=== PATIENT | male | born 1985 ===

== ENCOUNTER 2020-09-27 07:31 | Emergency (ER) | payer MEDICAID, SELFPAY ==
[2020-09-27 07:39] VITALS: BP 160/107; PULSE 85; RESP 17; TEMP 37.2; O2SAT 98; BMI 32.1
[2020-09-27] MEDS: Tetracaine HCl/PF 0.5% Oph Sol 4 ML DROPS 3 DROP EYE-LEFT (08:07)
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
== END 2020-09-27 08:44 | disposition home or self-care (01) ==
PROVIDERS: Emergency Provider Emergency Medicine; PCP Internal Medicine
DX: H20.12 Chronic iridocyclitis, left eye (principal); H57.12 Ocular pain, left eye; Z79.899 Other long term (current) drug therapy
CPT/HCPCS: 99283

== ENCOUNTER 2021-01-12 08:06 | Outpatient (REF) | payer MEDICAID, SELFPAY | END 2021-01-12 08:07 | disposition home or self-care (01) | LOC: HO.LAB 08:06 | PROVIDERS: PCP Internal Medicine; Visit Provider Internal Medicine | DX: Z20.822 Contact with and (suspected) exposure to COVID-19 (principal) | CPT/HCPCS: 36415; C9803; U0003; U0005 ==

== ENCOUNTER 2021-03-26 07:23 | Emergency (ER) | payer MEDICAID, SELFPAY ==
--- NOTE | ~2021-03-26 | XR_ITS ---
EXAMINATION: THORACIC AND LUMBAR SPINE CLINICAL INFORMATION: Back pain COMPARISON: Lumbar spine of May 01, 2020 TECHNIQUE: Three-view lumbar spine and AP and lateral thoracic spine. FINDINGS: No acute thoracic spine fractures identified. Pedicles intact. No abnormal paraspinal line bulge. There is mild degenerative spurring present at the T9-T10 level. There is minimal scoliosis convex left which may be positional in nature. There are 5 nonrib bearing lumbar vertebra. There is mild scoliosis convex left which may be positional in nature. There is some mild chronic deformity superior endplate of L2 without acute fracture identified. No spondylolisthesis or spondylolysis is appreciated. Sacroiliac joints unremarkable. XR/XR lumbar spine 2-3V IMPRESSION: No suspicious bony abnormalities of the thoracic or lumbar spine. No significant degenerative change appreciated.
--- NOTE | ~2021-03-26 | XR_ITS ---
EXAMINATION: THORACIC AND LUMBAR SPINE CLINICAL INFORMATION: Back pain COMPARISON: Lumbar spine of May 01, 2020 TECHNIQUE: Three-view lumbar spine and AP and lateral thoracic spine. FINDINGS: No acute thoracic spine fractures identified. Pedicles intact. No abnormal paraspinal line bulge. There is mild degenerative spurring present at the T9-T10 level. There is minimal scoliosis convex left which may be positional in nature. There are 5 nonrib bearing lumbar vertebra. There is mild scoliosis convex left which may be positional in nature. There is some mild chronic deformity superior endplate of L2 without acute fracture identified. No spondylolisthesis or spondylolysis is appreciated. Sacroiliac joints unremarkable. XR/XR thoracic spine 2V IMPRESSION: No suspicious bony abnormalities of the thoracic or lumbar spine. No significant degenerative change appreciated.
[2021-03-26 08:15] VITALS: BP 143/91; PULSE 89; RESP 18; TEMP 36.4; O2SAT 96; BMI 34.8
--- NOTE | 2021-03-26 09:18 | ED_ITS ---
HPI - Back Pain/Injury General Chief Complaint: Back Pain/Injury <DENIS Mcgregor Last Filed: 03/26/21 10:53> Stated Complaint: back pain <DENIS Mcgregor Last Filed: 03/26/21 10:53> Time Seen by Provider: 03/26/21 09:08 <Soo Best PA-C - Last Filed: 03/26/21 10:53> Source: patient <DENIS Mcgregor Last Filed: 03/26/21 10:53> Mode of arrival: ambulatory <DENIS Mcgregor Last Filed: 03/26/21 10:53> Limitations: physical limitation (Difficulty walking secondary to pain) <DENIS Mcgregor Last Filed: 03/26/21 10:53> History of Present Illness HPI Narrative: Patient is a 35-year-old male with a past medical history of a slipped lumbar disc which he has not addressed with a ophthalmologist retina specialist complaining of sudden onset back pain at work today. 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 He states today while he was working, he stepped out of his forklift and his legs gave out and he is now having increased back pain. Patient states he had x-rays a year 2 ago which showed he had a slipped disc but he has been too busy taking care family members who are out of work due to the pandemic to follow up with anyone about it. Denies fevers loss of control of bladder or bowels. <DENIS Mcgregor Last Filed: 03/26/21 10:53> MD elicited complaint: back pain <DENIS Mcgregor Last Filed: 03/26/21 10:53> Related Data Home Medications: Previous Rx's Medication Instructions Recorded naproxen 500 mg PO BID PRN #15 tab 03/26/21 prednisone 50 mg PO DAILY 4 Days #4 tab 03/26/21 acetaminophen [Tylenol Extra 1,000 mg PO QID PRN #14 tab 04/02/21 Strength] diazepam [Valium] 10 mg PO TID PRN #15 tab 04/02/21 lidocaine [Lidoderm] 1 patch TOPICAL DAILY #15 ea 04/02/21 naproxen 500 mg PO BID PRN #15 tab 04/02/21 prednisone 60 mg PO DAILY 5 Days #15 tab 04/02/21 <Soo Best PA-C - Last Filed: 03/26/21 10:53> Allergies/Adverse Reactions: Allergies Allergy/AdvReac Type Severity Reaction Status Date / Time ibuprofen [From MOTRIN] Allergy Intermediate HX Verified 03/26/21 09:46 ULCER-CANNOT USE aspirin [ASPIRIN] AdvReac Mild INVOLUNTARY Verified 09/27/20 07:42 SPASMS <Soo Best PA-C - Last Filed: 03/26/21 10:53> Review of Systems Review of Systems: Yes all other systems are reviewed and are negative <Soo Best PA-C - Last Filed: 03/26/21 10:53> [facility] Past Medical History Medical History: Medical History Epilepsy <Soo Best PA-C - Last Filed: 03/26/21 10:53> Social History Social History: Social History Smoking Status: Current every day smoker Substance Use Type: Marijuana <Soo Best PA-C - Last Filed: 03/26/21 10:53> Physical Exam Vital Signs: Vital Signs: Last Vital Signs Temp 97.5 F 03/26/21 08:15 Pulse 89 03/26/21 08:15 Resp 18 03/26/21 08:15 BP 143/91 H 03/26/21 08:15 Pulse Ox 96 03/26/21 08:15 Body Mass Index 34.8 <Soo Best PA-C - Last Filed: 03/26/21 10:53> Vital Signs: Last Vital Signs Temp 97.5 F 03/26/21 08:15 Pulse 89 03/26/21 08:15 Resp 18 03/26/21 08:15 BP 143/91 H 03/26/21 08:15 Pulse Ox 96 03/26/21 08:15 Body Mass Index 34.8 <Jovan Olea MD - Last Filed: 04/14/21 13:31> Const: General: cooperative, healthy appearing, comfortable and in distress (2/2 pain) mild <Soo Best PA-C - Last Filed: 03/26/21 10:53> HENMT: Head: Yes normal to inspection, Yes normocephalic and Yes atraumatic <Soo Best PA-C - Last Filed: 03/26/21 10:53> Eyes: General: appearance normal, both eyes and all related structures <Soo Best PA-C - Last Filed: 03/26/21 10:53> Neck: Neck: Yes normal visual inspection, Yes full ROM and Yes supple <Soo Best PA-C - Last Filed: 03/26/21 10:53> Resp: Effort & Inspection: normal respiratory effort and able to speak in complete sentences <Soo Best PA-C - Last Filed: 03/26/21 10:53> Back/Spine/Pelvis: Cervical Spine: cervical ROM normal and No Cervical spine tenderness <Soo Best PA-C - Last Filed: 03/26/21 10:53> Thoracic/Lumbar Spine: pain with thoraco-lumbar ROM, paraspinal muscle tenderness on the left in the lower thoracic, in the upper thoracic and in the mid lumbar, thoracic spinal tenderness and straight leg raise positive <Soo Best PA-C - Last Filed: 03/26/21 10:53> Course Course Course Narrative: Patient is a 35-year-old male with a past medical history of a slipped lumbar disc which he has not addressed with a ophthalmologist retina specialist complaining of sudden onset back pain at work today. VSS. Physical exam reveals lumbar and thoracic spinal tenderness as well as low back paraspinal muscle tenderness, patient in obvious pain at an more comfortable standing during exam. Straight leg test positive bilaterally. Will give 40 mg prednisone 60 mg IM Toradol in get an x-ray of the thoracic and lumbar spine and reassess. <Soo Best PA-C - Last Filed: 03/26/21 10:53> I have reviewed the chart <Jovan Olea MD - Last Filed: 04/14/21 13:31> Reevaluation(s) Reevaluation #1: Patient was sleeping when I walked into the room, says he still has some pressure in his back but clearly he is feeling much better. Reviewed x-ray results with patient, discussed going to a ophthalmologist retina specialist. He knows of Dr. frias at [facility]. Advised I can send a referral. Will give him prednisone and naproxen prescriptions. <Soo Best PA-C - Last Filed: 03/26/21 10:53> Time: 10:47 <Soo Best PA-C - Last Filed: 03/26/21 10:53> MDM - Back Pain/Injury Medical Records Attestation: I reviewed the patient's medical records. <Soo Best PA-C - Last Filed: 03/26/21 10:53> Imaging Data lumbar xray: Attestation: I personally reviewed and interpreted this imaging study as follows: <Soo Best PA-C - Last Filed: 03/26/21 10:53> My impression: No suspicious bony abnormalities of the thoracic or lumbar spine. No significant degenerative change appreciated. <Soo Best PA-C - Last Filed: 03/26/21 10:53> Radiologist's impression: [address] [address] ReportSigned Patient: Woo Sanches#: [id number]: 1985Acct:[id number]/Sex: 35 / MADM Date: 03/26/21Loc: EDAttending Dr: Ordering Physician: Soo Best PA-C Date of Service: 03/26/21 Procedure(s): XR lumbar spine 2-3V Accession Number(s): [id number] cc: Soo Best PA-C~ EXAMINATION: THORACIC AND LUMBAR SPINE CLINICAL INFORMATION: Back pain COMPARISON: Lumbar spine of May 01, 2020 TECHNIQUE: Three-view lumbar spine and AP and lateral thoracic spine. FINDINGS: No acute thoracic spine fractures identified. Pedicles intact. No abnormal paraspinal line bulge. There is mild degenerative spurring present at the T9-T10 level. There is minimal scoliosis convex left which may be positional in nature. There are 5 nonrib bearing lumbar vertebra. There is mild scoliosis convex left which may be positional in nature. There is some mild chronic deformity superior endplate of L2 without acute fracture identified. No spondylolisthesis or spondylolysis is appreciated. Sacroiliac joints unremarkable. XR/XR lumbar spine 2-3V IMPRESSION: No suspicious bony abnormalities of the thoracic or lumbar spine. No significant degenerative change appreciated. Dictated By:ZEKE TIERNEY V MDSigned By:<Electronically signed by ZEKE TIERNEY MD in [place]>03/26/21 1007 DD/ 0917TD/TT: Territory Sales Manager: BHAVNA <Soo Best PA-C - Last Filed: 03/26/21 10:53> Discharge Plan Discharge Clinical Impression: Back pain <DENIS Mcgregor Last Filed: 03/26/21 10:53> Patient Disposition: Home, Self-Care <DENIS Mcgregor Last Filed: 03/26/21 10:53> Instructions: Acute Low Back Pain (ED) <DENIS Mcgregor Last Filed: 03/26/21 10:53> Additional Instructions: As discussed, please take the prednisone for 4 more days, this will help reduce inflammation in her low back. I am also sending a prescription for naproxen to your pharmacy, you can take this for the next few days as well, please rest for the next for 5 days. Please also follow-up your PCP for a refe rral to a ophthalmologist retina specialist to address her issues. If you experience any loss of control of your bladder or bowels, please return to the emergency department STEPHENIE. <Soo Best PA-C - Last Filed: 03/26/21 10:53> Prescriptions: New prednisone 50 mg tablet 50 mg PO DAILY 4 Days Qty: 4 RF: 0 naproxen 500 mg tablet 500 mg PO BID PRN (Reason: pain) Qty: 15 RF: 0 No Action diazepam [Valium] 10 mg tablet 10 mg PO TID PRN (Reason: muscle spasm) Qty: 15 RF: 0 prednisone 20 mg tablet 60 mg PO DAILY 5 Days Qty: 15 RF: 0 lidocaine [Lidoderm] 5 % adhesive patch,medicated 1 patch topical DAILY Qty: 15 RF: 0 naproxen 500 mg tablet 500 mg PO BID PRN (Reason: pain) Qty: 15 RF: 0 acetaminophen [Tylenol Extra Strength] 500 mg tablet 1,000 mg PO QID PRN (Reason: fever or pain) Qty: 14 RF: 0 <Soo Best PA-C - Last Filed: 03/26/21 10:53> Referrals: Maggie Pleitez MD [Primary Care Provider] - 2 days (pt would like referral to back/ophthalmologist retina specialist) <Soo Best PA-C - Last Filed: 03/26/21 10:53> Stand Alone Forms: Work/School Release <Soo Best PA-C - Last Filed: 03/26/21 10:53> Interventions: ED Discharge Assessment Last Done: 03/26/21 11:04 <Soo Best PA-C - Last Filed: 03/26/21 10:53> Discharge Date/Time: 03/26/21 11:05 <Soo Best PA-C - Last Filed: 03/26/21 10:53>
[2021-03-26] MEDS: predniSONE 20 MG TABLET 40 MG PO (09:46)
[2021-03-26] MEDS: Ketorolac Tromethamine 60 MG/2 ML VIAL IM (09:46)
== END 2021-03-26 11:05 | disposition home or self-care (01) ==
PROVIDERS: Emergency Provider Emergency Medicine; PCP Internal Medicine
DX: M54.41 Lumbago with sciatica, right side (principal); F12.90 Cannabis use, unspecified, uncomplicated; Z79.899 Other long term (current) drug therapy
CPT/HCPCS: 72070; 72100; 96372; 99284; J1885

== ENCOUNTER 2021-04-02 10:17 | Emergency (ER) | payer MEDICAID, SELFPAY ==
[2021-04-02 10:23] VITALS: BP 128/70; PULSE 70; O2SAT 99
[2021-04-02 10:30] VITALS: BP 121/70; PULSE 81; RESP 16; TEMP 36.6; O2SAT 96; BMI 34.8
--- NOTE | 2021-04-02 10:49 | ED_ITS ---
HPI - Back Pain/Injury General Chief Complaint: Back Pain/Injury Stated Complaint: chronic lower back pain Time Seen by Provider: 04/02/21 10:21 Source: patient and family (Sister at bedside) Mode of arrival: ambulatory Limitations: no limitations History of Present Illness HPI Narrative: 35-year-old male with a past medical history of lower back pain although has never seen a specialist for this presenting to the ED for acute on chronic lower back pain mainly on the left side radiating to his left buttock/left leg over the past week worse today. He reports he was told he had a slipped disc approximately 1 year ago here when he was seen for similar complaints after obtaining an x-ray of his lumbar spine. Although reports he has never followed up. Reports that today after using the bathroom he was walking on the stairs and he felt a sharp pain to his left side of his lower back/buttocks and then his legs just gave out and he fell onto his buttocks. He denies head injury or loss of consciousness or further back injury. Reports that he has a follow-up appointment with his doctor by telehealth in an hour so she can refer him to the spinal specialist. Reports that he has been taking the naproxen and the prednisone and he has not received any symptomatic relief from that. MD elicited complaint: back pain Pertinent past history: prior back pain Onset (ago): week(s) (One week worse today) Timing: intermittent and progressively worsening Severity: moderate Similar Symptoms Previously: Yes Quality: sharp Location: lumbar spine Radiation: buttocks, left upper leg and left leg below the knee Exacerbating factors: walking Relieving factors: none Associated symptoms: denies other symptoms Treatments prior to arrival: other (Patient has tried multiple [id number] medications including the naproxen and the prednisone that he was prescribed no symptomatic relief although reports he is not interested in taking any narcotics) Work related injury: No Related Data Previous Rx's Medication Instructions Recorded naproxen 500 mg PO BID PRN #15 tab 03/26/21 prednisone 50 mg PO DAILY 4 Days #4 tab 03/26/21 acetaminophen [Tylenol Extra 1,000 mg PO QID PRN #14 tab 04/02/21 Strength] diazepam [Valium] 10 mg PO TID PRN #15 tab 04/02/21 lidocaine [Lidoderm] 1 patch TOPICAL DAILY #15 ea 04/02/21 naproxen 500 mg PO BID PRN #15 tab 04/02/21 prednisone 60 mg PO DAILY 5 Days #15 tab 04/02/21 Allergies Allergy/AdvReac Type Severity Reaction Status Date / Time ibuprofen [From MOTRIN] Allergy Intermediate HX Verified 03/26/21 09:46 ULCER-CANNOT USE aspirin [ASPIRIN] AdvReac Mild INVOLUNTARY Verified 09/27/20 07:42 SPASMS Review of Systems Review of Systems: Constitutional : No trauma, No Weight loss, No Fever, No Chills, ENT/Mouth : No Hearing loss, No Ear Pain, No Nasal Congestion, No Sinus Pain, No Hoarseness, No sore throat, No Rhinorrhea, No Swallowing Difficulty Cardiovascular : No Chest Pain, No SOB Respiratory : No Cough, No Dyspnea Gastrointestinal : No Nausea, No Vomiting, No Diarrhea, No abdominal Pain, No Hematochezia, No Melena Genitourinary : No Dysuria, No Urinary Frequency, No Hematuria, No Urinary or Bowel Incontinence/retention Musculoskeletal : + Back pain, No neck pain, No joint stiffness, No joint swelling Skin : No Skin Lesions, No rash or signs of infection Neuro : Positive radiation of the left lower back pain to the left buttock/left leg, No Weakness, No Numbness, No Paresthesias, No headache, no loss of bowel or bladder incontinence, no saddle anesthesia, Focal weakness, No radiation Denies history of IV drug usage. Yes all other systems are reviewed and are negative [facility] Past Medical History Attestation statement: The following information was validated with the patient. Medical History Epilepsy Social History Social History Smoking Status: Current every day smoker Substance Use Type: Marijuana Advance Directives: Yes Advance Directives Information Provided: Yes Advance Directives on File: No Physical Exam Vital Signs: Vital Signs: Last Vital Signs Temp 97.8 F 04/02/21 10:30 Pulse 81 04/02/21 10:30 Resp 16 04/02/21 10:30 BP 121/70 04/02/21 10:30 Pulse Ox 96 04/02/21 10:30 Body Mass Index 34.8 vital signs have been reviewed as normal and appeared to be correct. Blood pressure normal. Heart rate normal. Respiration rate normal. Temperature normal. Oxygen saturation normal. Appearance: Alert. Oriented X3. No acute distress. Head: Normal external exam. Normocephalic. Atraumatic. No [place] signs noted. No raccoon eyes noted Eyes: PERRLA. EOMI. Conjunctiva and sclera normal. Eyelids normal. ENT: EAC normal. TM's Normal. Pharynx normal. Uvula midline. Moist mucous membranes. No trismus noted. No drooling noted. No muffled voice noted. Neck: Normal inspection. Neck supple. FROM. No adenopathy. Thyroid Normal. No meningeal signs. No neck mass noted. CVS: Normal heart rate and rhythm. Heart sound normal. No murmurs noted. Pulses normal throughout. Respiratory: No respiratory distress. Painless inspiration. Breath sounds normal. No wheezes/rales/rhonchi noted. Chest nontender. No accessory muscle usage noted or decreased air movement noted. Abdomen: Soft and nontender. Bowel sounds normal in all 4 quadrants. No distention noted. No organomegaly noted. No visible injury noted. Back: No CVA tenderness. Full range of motion noted. No obvious deformities, or edema. Mild para-spinal muscular tenderness from lumbar region to coccyx. Full ROM in back and lower extremities. 5/5 strength hip extension/flexion, abduction, adduction. Mild Lumbar pain with hip flexion against resistance. Straight leg raise test negative on right; Straight leg raise test positive on left; Reflexes normal ankle and knee bilaterally; EHL motor strength normal bilaterally. No rashes/lesion/induration/fluctuance or signs infection noted. Skin: Skin warm and dry. Normal skin color. Normal skin turgor. No rashes/lesions/lacerations noted. Extremities: No lower extremity edema. Extremities exhibit normal range of motion. Extremities nontender. Neuro: Oriented X 3. No motor deficit. No sensory deficit. Reflexes normal. Patient has a normal steady gait. Course Course Course Narrative: Pt c likely muscular pain, but could be herniated disc. Neuro exam shows no deficits. Not c/w AAA/epidural abscess/dissection.No high risk Hx (Incont, fever, immunosupp, recent surgery/LP, coag, signif trauma, wt loss, puls mass, hx/o Ca, TB, or IVDU) to warrant MRI/CT today. Although due to patient returning multiple times I did offer imaging although patient reports that he has a follow-up within an hour and he will miss his appointment for the referral for the spinal specialist therefore he is refusing imaging at this time. Not c/w Pyelo/UTI/kidney stone/spinal fx. Not cauda equina syndrome. DC c meds and f/u. MDM - Back Pain/Injury Medical Records Attestation: I reviewed the patient's medical records. 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 Patient Disposition: Home, Self-Care Instructions: Sciatica (ED), Lumbar Radiculopathy (ED), Lower Back Exercises (ED) Prescriptions: New diazepam [Valium] 10 mg tablet 10 mg PO TID PRN (Reason: muscle spasm) Qty: 15 RF: 0 prednisone 20 mg tablet 60 mg PO DAILY 5 Days Qty: 15 RF: 0 lidocaine [Lidoderm] 5 % adhesive patch,medicated 1 patch topical DAILY Qty: 15 RF: 0 naproxen 500 mg tablet 500 mg PO BID PRN (Reason: pain) Qty: 15 RF: 0 acetaminophen [Tylenol Extra Strength] 500 mg tablet 1,000 mg PO QID PRN (Reason: fever or pain) Qty: 14 RF: 0 No Action prednisone 50 mg tablet 50 mg PO DAILY 4 Days Qty: 4 RF: 0 naproxen 500 mg tablet 500 mg PO BID PRN (Reason: pain) Qty: 15 RF: 0 Referrals: Maggie Pleitez MD [Primary Care Provider] - 1 day (Follow-up today so she can give you a referral to spinal specialist) Stand Alone Forms: Work/School Release Print Language: [place] Leonean
[2021-04-02] MEDS: diazePAM 5 MG TABLET 10 MG PO (11:29)
[2021-04-02] MEDS: NaPROXEN 500 MG TABLET PO (11:29)
[2021-04-02] MEDS: predniSONE 20 MG TABLET 60 MG PO (11:29)
== END 2021-04-02 11:38 | disposition home or self-care (01) ==
PROVIDERS: Emergency Provider Emergency Medicine; PCP Internal Medicine
DX: M51.17 Intervertebral disc disorders with radiculopathy, lumbosacral region (principal); M79.605 Pain in left leg; M79.604 Pain in right leg; Z79.899 Other long term (current) drug therapy
CPT/HCPCS: 99283

== ENCOUNTER 2021-04-07 07:57 | Outpatient (REF) | payer MEDICAID, SELFPAY ==
--- NOTE | ~2021-04-07 | MR_ITS ---
EXAMINATION: MR LUMBAR SPINE WITHOUT CONTRAST CLINICAL INFORMATION: Low back pain. Radiculopathy. COMPARISON: None TECHNIQUE: MRI of the lumbar spine was obtained using routine sequences without contrast. FINDINGS: The lumbar vertebral bodies maintain normal heights and alignment. There is moderate to severe disc height loss at L4-L5 with milder disc height loss also present at L1-L2, L2-L3, and L3-L4. The L5 disc appears preserved. The distal spinal cord appears normal. The conus medullaris terminates normally at the T12 level. The extraspinal soft tissues are within normal limits. SPINAL LEVELS: L1-L2: Mild disc bulging. No spinal canal or neural foraminal stenosis. L2-L3: Disc bulging with left subarticular extrusion with mild superior and inferior migration with resultant mass effect on the traversing left L3 nerve root. Mild spinal canal stenosis. No foraminal nerve root compression. L3-L4: Disc bulging with prominent epidural fat resulting in mild spinal canal stenosis and asymmetric narrowing of the left subarticular zone with abutment of the traversing left L4 nerve root. Left neural foramen is mildly narrowed with abutment of the exiting left L3 nerve root. Mild fatty degenerative endplate changes seen inferiorly at L3. L4-L5: Disc bulging with left subarticular extrusion with mild superior migration. Moderate facet arthropathy. Mild to moderate spinal canal stenosis and left subarticular stenosis with mass effect on the traversing left L5 nerve root. Mild bilateral neural foraminal stenosis without definite foraminal nerve root compression. Mild fatty degenerative endplate changes seen inferiorly at the opposing endplates. L5-S1: No posterior disc abnormality. Mild to moderate facet arthropathy. No spinal canal or neural foraminal stenosis. MR/MR lumbar spine wo con IMPRESSION: At L2-L3 there is left subarticular extrusion resulting in mass effect on the traversing left L3 nerve root. At L3-L4 there is mild spinal canal stenosis with asymmetric narrowing of the left subarticular zone. Mild left neural foraminal stenosis. At L4-L5 there is left subarticular extrusion with mass effect on the traversing left L5 nerve root. Mild to moderate spinal canal stenosis. Mild fatty endplate changes seen inferiorly at L3 and at L4-L5.
== END 2021-04-07 07:58 | disposition home or self-care (01) ==
LOC: HO.MRI 07:57
PROVIDERS: Visit Provider Internal Medicine
DX: M54.16 Radiculopathy, lumbar region (principal); M54.5 Low back pain
CPT/HCPCS: 72148

== ENCOUNTER 2021-07-17 10:25 | Emergency (ER) | payer MEDICAID, SELFPAY ==
--- NOTE | ~2021-07-17 | XR_ITS ---
EXAMINATION: LEFT ANKLE 2 VIEWS, LEFT TIB-FIB 2 VIEWS, LEFT FOOT 3 VIEWS CLINICAL INFORMATION: Left foot pain COMPARISON: None TECHNIQUE: As above nonweightbearing FINDINGS: Ankle mortise anatomic. No deformity. No mid or forefoot abnormality. Mild calcaneal plantar spurring. No tibiofibular abnormality. XR/XR ankle LT min 3V IMPRESSION: No fracture. Spurring as above.
--- NOTE | ~2021-07-17 | XR_ITS ---
EXAMINATION: LEFT ANKLE 2 VIEWS, LEFT TIB-FIB 2 VIEWS, LEFT FOOT 3 VIEWS CLINICAL INFORMATION: Left foot pain COMPARISON: None TECHNIQUE: As above nonweightbearing FINDINGS: Ankle mortise anatomic. No deformity. No mid or forefoot abnormality. Mild calcaneal plantar spurring. No tibiofibular abnormality. XR/XR tibia fibula LT 2V IMPRESSION: No fracture. Spurring as above.
--- NOTE | ~2021-07-17 | US_ITS ---
EXAMINATION: ULTRASOUND OF THE LEFT ACHILLES TENDON CLINICAL INFORMATION: Pain status post injury COMPARISON: None TECHNIQUE: Using a linear high frequency transducer, left Achilles tendon was assessed. FINDINGS: Targeted ultrasound demonstrates no disruption of the Achilles tendon tendon fibers. There is no evidence for any hematoma or any surrounding fluid. US/US extremity nonvascular IMPRESSION: No sonographic evidence for any discrete injury. Consider MRI as symptoms warrant.
--- NOTE | ~2021-07-17 | XR_ITS ---
EXAMINATION: LEFT ANKLE 2 VIEWS, LEFT TIB-FIB 2 VIEWS, LEFT FOOT 3 VIEWS CLINICAL INFORMATION: Left foot pain COMPARISON: None TECHNIQUE: As above nonweightbearing FINDINGS: Ankle mortise anatomic. No deformity. No mid or forefoot abnormality. Mild calcaneal plantar spurring. No tibiofibular abnormality. XR/XR foot LT 2V IMPRESSION: No fracture. Spurring as above.
[2021-07-17 10:39] VITALS: BP 126/96; BP 140/80; PULSE 83; PULSE 86; RESP 16; TEMP 36.8; O2SAT 97; O2SAT 98; BMI 34.2
[2021-07-17] MEDS: Acetaminophen 325 MG TABLET 975 MG PO (11:31)
--- NOTE | 2021-07-17 12:42 | ED.LOWEXIN ---
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 He denies head injury or loss of consciousness. He denies any other injury complaints or concerns. MD complaint: leg injury, ankle injury and foot injury Onset (ago): minute(s) (Prior to arrival) Injury: Left: ankle, foot and toes Type of Injury: other (Forklift tire rolled over his left lower leg/ankle/foot) Place: work Severity: moderate Relieving factors: nothing Exacerbating factors: weight bearing, movement and palpation Context: other (Forklift tire rolled over his foot/ankle/lower leg) Associated symptoms: swelling, numbness and tingling Other symptoms: none Treatments prior to arrival: cold therapy Related Data Previous Rx's Medication Instructions Recorded naproxen 500 mg tablet 500 mg PO BID PRN #15 tab 03/26/21 prednisone 50 mg tablet 50 mg PO DAILY 4 Days #4 tab 03/26/21 acetaminophen 500 mg tablet 1,000 mg PO QID PRN #14 tab 04/02/21 (Tylenol Extra Strength) diazepam 10 mg tablet (Valium) 10 mg PO TID PRN #15 tab 04/02/21 lidocaine 5 % topical patch 1 patch TOPICAL DAILY #15 ea 04/02/21 (Lidoderm) naproxen 500 mg tablet 500 mg PO BID PRN #15 tab 04/02/21 prednisone 20 mg tablet 60 mg PO DAILY 5 Days #15 tab 04/02/21 acetaminophen 500 mg tablet 1,000 mg PO QID PRN #14 tab 07/17/21 (Tylenol Extra Strength) Allergies Allergy/AdvReac Type Severity Reaction Status Date / Time ibuprofen [From MOTRIN] Allergy Intermediate HX Verified 03/26/21 09:46 ULCER-CANNOT USE aspirin [ASPIRIN] AdvReac Mild INVOLUNTARY Verified 09/27/20 07:42 SPASMS Review of Systems Review of Systems: Constitutional : No changes in activity, No lethargy, No recent prior head injury, No agitation, No increased fussiness ENT/Mouth : No Ear Pain, No Nasal discharge/drainage Eyes: No Eye Pain, No Swelling, No Redness, No Foreign Body, No Vision Changes Cardiovascular : No Chest Pain, No SOB Respiratory : No Cough Gastrointestinal : No Nausea, No Vomiting, No abdominal Pain Genitourinary : No Dysuria, No Urinary Frequency, No Urinary Incontinence, No Urgency, No Flank Pain Musculoskeletal : Positive joint pain, No neck stiffness, No back pain/injury Skin : No lacerations Neuro : Positive numbness/tingling to left foot, No unsteady gait, No Loss of Consciousness, No altered mental status, No Headache Yes all other systems are reviewed and are negative [facility] Past Medical History Attestation statement: The following information was validated with the patient. Medical History Bleeding ulcer Epilepsy Social History Social History Substance Use Type: Marijuana Advance Directives: Yes Advance Directives Information Provided: Yes Advance Directives on File: No Physical Exam Vital Signs: Vital Signs: Last Vital Signs Temp 98.2 F 07/17/21 10:39 Pulse 83 07/17/21 10:39 Resp 16 07/17/21 10:39 BP 126/96 H 07/17/21 10:39 Pulse Ox 97 07/17/21 10:39 Body Mass Index 34.2 vital signs have been reviewed as normal and appeared to be correct. Blood pressure hypertensive 126/96. Heart rate normal. Respiration rate normal. Temperature normal. Oxygen saturation normal. Appearance: Alert. Oriented X3. No acute distress. Head: Normal external exam. Normocephalic. Atraumatic. Eyes: PERRLA. EOMI. Conjunctiva and sclera normal. Eyelids normal. ENT: Pharynx normal. Uvula midline. Moist mucous membranes. Neck: Normal inspection. Neck supple. FROM. CVS: Normal heart rate and rhythm. Heart sound normal. Pulses normal throughout. No murmurs/rales/gallops. Respiratory: No respiratory distress. Painless inspiration. Breath sounds normal. No wheezes/rales/rhonchi noted. Chest nontender. No accessory muscle usage noted or decreased air movement noted. Back: Full range of motion noted. Skin: Skin warm and dry. Normal skin color. Normal skin turgor. No rashes/lesions/lacerations noted. Extremities: Patient with tenderness palpation to left lower leg/ankle with mild soft tissue swelling to the medial malleolus and tenderness up patient to the left foot and toes. Patient has full range of motion of all toes/foot and ankle joint. No obvious deformities. There is no pain out of proportion not consistent with compartment syndrome. Negative Becerra's test. Achilles tendon appears to be intact. No lower extremity edema. Otherwise all other Extremities exhibit normal range of motion and nontender. Neuro: Oriented X 3. Patient reports that he has pins and needles/tingling/numbness sensation to the left foot otherwise no additional sensory deficit. No Motor deficit noted. Reflexes normal. Normal steady gait. No focal neuro deficits noted. Vascular: + radial pulses/+ 2 distal pedal pulses/+2 dorsalis pedis b/l. Normal cap refill. No cyanosis noted to upper extremity nails and lower extremity toes nails. 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 Plan: X-ray of left ankle/foot and tibia/fibula along with an ultrasound of the Achilles tendon provide 975 mg of Tylenol then re-evaluate Reevaluation(s) Reevaluation #1: - left ankle/foot/fibula fibula x-ray negative for any acute processes. Therefore I obtained an ultrasound of the left Achilles tendon it and they cannot see any sonographic evidence of any discrete injury date report consider MRI as needed. Although on my exam patient does not appear to have an obvious Achilles tendon rupture/tear. And patient was able to get up and walk to the bathroom and he reports that his pain and numbness/tingling sensation is almost completely resolved. Therefore will DC home with symptomatic treatment along with instructions return if any new or worsening symptoms to follow up with primary care provider and his jobs [facility] [employer]. Patient understands agrees with this plan. Time: 13:11 MDM - Extremity Injury (Lower) Medical Records Attestation: I reviewed the patient's medical records. Imaging Data Ankle/tibia/fibula x-rays: Attestation: I personally reviewed and interpreted this imaging study as follows: Radiologist's impression: FINDINGS: Ankle mortise anatomic. No deformity. No mid or forefoot abnormality. Mild calcaneal plantar spurring. No tibiofibular abnormality.? XR/XR foot LT 2V IMPRESSION: No fracture. Spurring as above.? Achilles left ultrasound: Attestation: I personally reviewed and interpreted this imaging study as follows: Radiologist's impression: FINDINGS: Targeted ultrasound demonstrates no disruption of the Achilles tendon tendon fibers. There is no evidence for any hematoma or any surrounding fluid.? US/US extremity nonvascular IMPRESSION: No sonographic evidence for any discrete injury. Consider MRI as symptoms warrant. Discharge Plan Discharge Clinical Impression: Ankle sprain and strain, Foot sprain, Encounter for assessment of work-related causation of injury, Leg sprain Patient Disposition: Home, Self-Care Instructions: Ankle Sprain (ED), Foot Sprain (ED), Return to Work Instructions (ED) Prescriptions: New acetaminophen [Tylenol Extra Strength] 500 mg tablet 1,000 mg PO QID PRN (Reason: fever or pain) Qty: 14 RF: 0 No Action diazepam [Valium] 10 mg tablet 10 mg PO TID PRN (Reason: muscle spasm) Qty: 15 RF: 0 prednisone 20 mg tablet 60 mg PO DAILY 5 Days Qty: 15 RF: 0 lidocaine [Lidoderm] 5 % adhesive patch,medicated 1 patch topical DAILY Qty: 15 RF: 0 naproxen 500 mg tablet 500 mg PO BID PRN (Reason: pain) Qty: 15 RF: 0 acetaminophen [Tylenol Extra Strength] 500 mg tablet 1,000 mg PO QID PRN (Reason: fever or pain) Qty: 14 RF: 0 prednisone 50 mg tablet 50 mg PO DAILY 4 Days Qty: 4 RF: 0 naproxen 500 mg tablet 500 mg PO BID PRN (Reason: pain) Qty: 15 RF: 0 Referrals: [facility] [Provider Group] - 2 days Stand Alone Forms: Work/School Release Print Language: Thai
== END 2021-07-17 13:30 | disposition home or self-care (01) ==
PROVIDERS: Emergency Provider Internal Medicine; PCP Internal Medicine
DX: S93.402A Sprain of unspecified ligament of left ankle, initial encounter (principal); S96.912A Strain of unspecified muscle and tendon at ankle and foot level, left foot, initial encounter; S93.602A Unspecified sprain of left foot, initial encounter; V88.8XXA Person injured in other specified noncollision transport accidents involving motor vehicle, nontraffic, initial encounter; Y93.H3 Activity, building and construction; Y92.59 Other trade areas as the place of occurrence of the external cause; Y99.0 Civilian activity done for income or pay
CPT/HCPCS: 73590; 73610; 73620; 76882; 99283; 99284

== ENCOUNTER 2021-09-06 08:43 | Emergency (ER) | payer MEDICAID, SELFPAY ==
[2021-09-06 09:06] VITALS: BP 127/92; PULSE 84; RESP 16; TEMP 36.8; O2SAT 97; BMI 32.1
--- NOTE | 2021-09-06 10:03 | ED_ITS ---
HPI - URI/Sore Throat General Chief Complaint: Upper Respiratory Symptoms Stated Complaint: covid symptoms Source: patient Mode of arrival: ambulatory Limitations: no limitations History of Present Illness HPI Narrative: Patient presents to the ED to be tested for COVID-19. Patient states most of his family tested positive for COVID over the weekend so he wanted to make sure he did not get COVID. Patient presently denies any symptoms. Related Data Previous Rx's Medication Instructions Recorded naproxen 500 mg tablet 500 mg PO BID PRN #15 tab 03/26/21 prednisone 50 mg tablet 50 mg PO DAILY 4 Days #4 tab 03/26/21 acetaminophen 500 mg tablet 1,000 mg PO QID PRN #14 tab 04/02/21 (Tylenol Extra Strength) diazepam 10 mg tablet (Valium) 10 mg PO TID PRN #15 tab 04/02/21 lidocaine 5 % topical patch 1 patch TOPICAL DAILY #15 ea 04/02/21 (Lidoderm) naproxen 500 mg tablet 500 mg PO BID PRN #15 tab 04/02/21 prednisone 20 mg tablet 60 mg PO DAILY 5 Days #15 tab 04/02/21 acetaminophen 500 mg tablet 1,000 mg PO QID PRN #14 tab 07/17/21 (Tylenol Extra Strength) Allergies Allergy/AdvReac Type Severity Reaction Status Date / Time ibuprofen [From MOTRIN] Allergy Intermediate HX Verified 03/26/21 09:46 ULCER-CANNOT USE aspirin [ASPIRIN] AdvReac Mild INVOLUNTARY Verified 09/27/20 07:42 SPASMS Review of Systems Review of Systems: Yes all other systems are reviewed and are negative Constitutional: Constitutional: Reports as per HPI and Reports no additional constitutional complaints Eyes: Eyes: Reports as per HPI and Reports no additional eye complaints ENT: Reports system reviewed and no additional complaints, except as documented and Reports as per HPI Cardiovascular: Cardiovascular: Reports as per HPI and Reports no additional cardiovascular complaints Respiratory: Respiratory: Reports as per HPI and Reports no additional respiratory complaints Gastrointestinal: Gastrointestinal: Reports as per HPI and Reports no additional gastrointestinal complaints Genitourinary: Genitourinary: Reports no additional male genitourinary compl aints and Reports as per HPI Musculoskeletal: Musculoskeletal: Reports no additional musculoskeletal complaints and Reports as per HPI Neurologic: Reports system reviewed and no additional complaints, except as documented and Reports as per HPI Psychiatric: Psychiatric: Reports no additional psychiatric complaints and Reports as per HPI [facility] Past Medical History Medical History Bleeding ulcer Epilepsy Social History Social History Substance Use Type: Marijuana Advance Directives: No Physical Exam Vital Signs: Vital Signs: Last Vital Signs Temp 98.2 F 09/06/21 09:06 Pulse 84 09/06/21 09:06 Resp 16 09/06/21 09:06 BP 127/92 H 09/06/21 09:06 Pulse Ox 97 09/06/21 09:06 Body Mass Index 32.1 Const: General: cooperative, healthy appearing, comfortable, no acute distress, well developed, alert, awake and Physically active Orientation/consciousness: patient oriented x3 HENMT: Head: Yes normal to inspection, Yes No palpable skull fracture present, Yes normocephalic and Yes atraumatic Ears: hearing grossly normal bilaterally, external ears normal, TM's normal bilaterally, EAC's normal, mastoids normal and no periauricular adenopathy General nose exam: Normal external nose present, Normal nares present and No nasal polyps present Face and sinus: Yes normal facial exam and Yes sinuses nontender Throat: Yes posterior oropharynx normal, Yes tonsils normal and Yes uvula midline Eyes: General: appearance normal, both eyes and all related structures Neck: Neck: Yes normal visual inspection, Yes full ROM, Yes no lymphadenopathy, Yes no meningeal signs, Yes trachea midline, Yes supple and No tender Chest: Chest palpation & inspection: normal inspection of the chest and normal palpation of entire chest wall Resp: Effort & Inspection: normal respiratory effort and able to speak in complete sentences Auscultation: clear to auscultation bilaterally Cardio: Jugular venous distension: no JVD Heart sounds: S1 normal heart sound present and S2 normal heart sound present GI: Inspection: Yes normal to inspection and No abdominal wall ecchymosis P alpation (GI): Soft to palpation, not firm, nontender, no guarding and not rigid : General: No CVA tenderness and Yes no CVA tenderness Back/Spine/Pelvis: Back: no CVA tenderness, No CVA tenderness and No back tenderness Skin: General skin exam: no rashes or lesions noted and elasticity normal Neuro: General: patient oriented x3, gait normal, no meningeal signs and CN's II-XI intact bilaterally Cranial nerves: Yes CN's II-XII intact bilaterally Extrem: General: Yes normal to inspection and Yes full ROM Psych: Appearance: grossly normal, well kempt and not disheveled Course Course Course Narrative: Patient is symptomatic will send COVID habitus. Reevaluation(s) Reevaluation #1: COVID swab is negative. Patient informed this may be false negative and informed if he started having symptoms to get retested. Time: 11:01 MDM - URI/Sore Throat MDM Narrative Medical decision making narrative: Normal exam Lab Data Labs: Lab Results 09/06/21 Range/Units 09:53 COVID-19 ([facility]) Negative (Negative) COVID-19 Clin Com See Note Discharge Plan Discharge Clinical Impression: Normal exam Patient Disposition: Home, Self-Care Instructions: Normal Exam (ED) Additional Instructions: Your COVID test came back negative. She started having symptoms recommend retesting in 72 hours. Return to the ED for any chest pain, shortness of breath, coughing up blood, intractable fever, chills, weakness, dizziness, or any other concerning symptoms. Please follow-up with primary care provider Prescriptions: No Action diazepam [Valium] 10 mg tablet 10 mg PO TID PRN (Reason: muscle spasm) Qty: 15 RF: 0 prednisone 20 mg tablet 60 mg PO DAILY 5 Days Qty: 15 RF: 0 lidocaine [Lidoderm] 5 % adhesive patch,medicated 1 patch topical DAILY Qty: 15 RF: 0 naproxen 500 mg tablet 500 mg PO BID PRN (Reason: pain) Qty: 15 RF: 0 acetaminophen [Tylenol Extra Strength] 500 mg tablet 1,000 mg PO QID PRN (Reason: fever or pain) Qty: 14 RF: 0 acetaminophen [Tylenol Extra Strength] 500 mg tablet 1,000 mg PO QID PRN (Reason: fever or pain) Qty: 14 RF: 0 prednisone 50 mg tablet 50 mg PO DAILY 4 Days Qty: 4 RF: 0 naproxen 500 mg tablet 500 mg PO BID PRN (Reason: pain) Qty: 15 RF: 0 Interventions: ED Discharge Assessment Last Done: 09/06/21 11:56 Discharge Date/Time: 09/06/21 11:57 Print Language: Upper Sorbian
[2021-09-06 10:14] LABS: COVID-19 Test Negative (Negative); IDNOW Serial# 9DD0AD1C
== END 2021-09-06 11:57 | disposition home or self-care (01) ==
PROVIDERS: Emergency Provider Emergency Medicine; PCP Internal Medicine
DX: Z20.822 Contact with and (suspected) exposure to COVID-19 (principal)
CPT/HCPCS: 36415; 87635; 99283

== ENCOUNTER 2021-09-18 03:17 | Emergency (ER) | payer MEDICAID, SELFPAY ==
[2021-09-18 03:22] VITALS: BP 139/86; PULSE 87; RESP 18; TEMP 37; O2SAT 94; BMI 32.1
--- NOTE | 2021-09-18 04:09 | ED.BACK ---
HPI - Back Pain/Injury General Chief Complaint: Back Pain/Injury Stated Complaint: Back pain Time Seen by Provider: 09/18/21 04:04 Source: patient Mode of arrival: ambulatory Limitations: no limitations History of Present Illness HPI Narrative: History of chronic back pain at physical therapy seen a specialist went to work 1 week ago after few months of rest and physical therapy yesterday he picked up his niece was 30 lb noticed pain the left side of lower back no leg weakness no nausea no vomiting no bowel or bladder incontinence no focal weakness Related Data Previous Rx's Medication Instructions Recorded naproxen 500 mg tablet 500 mg PO BID PRN #15 tab 03/26/21 prednisone 50 mg tablet 50 mg PO DAILY 4 Days #4 tab 03/26/21 acetaminophen 500 mg tablet 1,000 mg PO QID PRN #14 tab 04/02/21 (Tylenol Extra Strength) diazepam 10 mg tablet (Valium) 10 mg PO TID PRN #15 tab 04/02/21 lidocaine 5 % topical patch 1 patch TOPICAL DAILY #15 ea 04/02/21 (Lidoderm) naproxen 500 mg tablet 500 mg PO BID PRN #15 tab 04/02/21 prednisone 20 mg tablet 60 mg PO DAILY 5 Days #15 tab 04/02/21 acetaminophen 500 mg tablet 1,000 mg PO QID PRN #14 tab 07/17/21 (Tylenol Extra Strength) cyclobenzaprine 10 mg tablet 10 mg PO Q8H #20 tab 09/18/21 tramadol 50 mg tablet 50 mg PO Q6H PRN #20 tab 09/18/21 Allergies Allergy/AdvReac Type Severity Reaction Status Date / Time ibuprofen [From MOTRIN] Allergy Intermediate HX Verified 03/26/21 09:46 ULCER-CANNOT USE aspirin [ASPIRIN] AdvReac Mild INVOLUNTARY Verified 09/27/20 07:42 SPASMS Review of Systems Review of Systems: Yes all other systems are reviewed and are negative PMFSH Past Medical History Medical History Bleeding ulcer Epilepsy Social History Social History Substance Use Type: Marijuana Advance Directives: No Physical Exam Vital Signs: Vital Signs: Last Vital Signs Temp 98.6 F 09/18/21 03:22 Pulse 87 09/18/21 03:22 Resp 18 09/18/21 03:22 BP 139/86 09/18/21 03:22 Pulse Ox 94 09/18/21 03:22 Body Mass Index 32.1 Appearance: Alert. Oriented X3. No acute distress. ENT: Pharynx normal. Oral Mucosa moist Neck: Normal inspection. Neck supple. CVS: Normal heart rate and rhythm. Pulses normal. Respiratory: No respiratory distress. Equal air entry bilateral, no wheezing/rales/rhonchi Abdomen: Soft and nontender. Bowel sounds are present, no mass palpable, no CVA tenderness Back: Diffuse tenderness left paraspinal area no focal spinal tenderness Extremities: No lower extremity edema. No calf tenderness Neuro: Oriented X 3. No motor deficit. No sensory deficit. Straight leg test negative no sacral sensation sparing Discharge Plan Discharge Clinical Impression: Strain of lumbar region Qualifiers: Encounter type: initial encounter Qualified Code(s): S39.012A - Strain of muscle, fascia and tendon of lower back, initial encounter Patient Disposition: Home, Self-Care Instructions: Acute Low Back Pain (ED) Additional Instructions: Take pain medication and muscle relaxant as advised Follow-up with your orthopedics/physical therapy Prescriptions: New cyclobenzaprine 10 mg tablet 10 mg PO Q8H Qty: 20 RF: 0 tramadol 50 mg tablet 50 mg PO Q6H PRN (Reason: pain) Qty: 20 RF: 0 No Action diazepam [Valium] 10 mg tablet 10 mg PO TID PRN (Reason: muscle spasm) Qty: 15 RF: 0 prednisone 20 mg tablet 60 mg PO DAILY 5 Days Qty: 15 RF: 0 lidocaine [Lidoderm] 5 % adhesive patch,medicated 1 patch topical DAILY Qty: 15 RF: 0 naproxen 500 mg tablet 500 mg PO BID PRN (Reason: pain) Qty: 15 RF: 0 acetaminophen [Tylenol Extra Strength] 500 mg tablet 1,000 mg PO QID PRN (Reason: fever or pain) Qty: 14 RF: 0 acetaminophen [Tylenol Extra Strength] 500 mg tablet 1,000 mg PO QID PRN (Reason: fever or pain) Qty: 14 RF: 0 prednisone 50 mg tablet 50 mg PO DAILY 4 Days Qty: 4 RF: 0 naproxen 500 mg tablet 500 mg PO BID PRN (Reason: pain) Qty: 15 RF: 0
[2021-09-18] MEDS: Cyclobenzaprine HCl 10 MG TABLET PO (04:15)
[2021-09-18] MEDS: traMADoL HCL 50 MG TABLET PO (04:15)
== END 2021-09-18 04:31 | disposition home or self-care (01) ==
PROVIDERS: Emergency Provider Internal Medicine
DX: M54.50 Low back pain, unspecified (principal); Z79.899 Other long term (current) drug therapy
CPT/HCPCS: 99283; 99284

== ENCOUNTER 2021-11-19 00:06 | Emergency (ER) | payer MEDICAID, SELFPAY ==
[2021-11-19 00:11] VITALS: BP 118/82; PULSE 94; RESP 20; TEMP 36.9; O2SAT 97; BMI 36.2
[2021-11-19 01:02] LABS: Influenza A PCR NEGATIVE (Negative); Influenza B PCR NEGATIVE (Negative); Resp Syncy Virus RNA Qual PCR NEGATIVE (Negative)
[2021-11-19 01:04] LABS: SARS COV2 PCR INHOUSE POSITIVE (Negative)
--- NOTE | 2021-11-19 01:36 | ED_ITS ---
HPI - General Adult General Chief complaint: General Medical Stated complaint: Bodyaches/Fever/Headache Time Seen by Provider: 11/19/21 01:34 Source: patient Mode of arrival: ambulatory History of Present Illness HPI narrative: 35-year-old male with presentation with 2 days body aches, fatigue, loss of taste, headache, chills, and states that he was just recently notified by a co-worker that he was COVID-19 positive. Related Data Previous Rx's Medication Instructions Recorded naproxen 500 mg tablet 500 mg PO BID PRN #15 tab 03/26/21 prednisone 50 mg tablet 50 mg PO DAILY 4 Days #4 tab 03/26/21 acetaminophen 500 mg tablet 1,000 mg PO QID PRN #14 tab 04/02/21 (Tylenol Extra Strength) diazepam 10 mg tablet (Valium) 10 mg PO TID PRN #15 tab 04/02/21 lidocaine 5 % topical patch 1 patch TOPICAL DAILY #15 ea 04/02/21 (Lidoderm) naproxen 500 mg tablet 500 mg PO BID PRN #15 tab 04/02/21 prednisone 20 mg tablet 60 mg PO DAILY 5 Days #15 tab 04/02/21 acetaminophen 500 mg tablet 1,000 mg PO QID PRN #14 tab 07/17/21 (Tylenol Extra Strength) cyclobenzaprine 10 mg tablet 10 mg PO Q8H #20 tab 09/18/21 tramadol 50 mg tablet 50 mg PO Q6H PRN #20 tab 09/18/21 Allergies Allergy/AdvReac Type Severity Reaction Status Date / Time ibuprofen [From MOTRIN] Allergy Intermediate HX Verified 11/19/21 00:11 ULCER-CANNOT USE aspirin [ASPIRIN] AdvReac Mild INVOLUNTARY Verified 11/19/21 00:11 SPASMS Review of Systems Review of Systems: Pertinent positives and negatives as stated in the HPI 10 point review of systems is otherwise negative. [facility] Past Medical History Source: nursing notes reviewed Medical History Bleeding ulcer Epilepsy Social History Social History Substance Use Type: Marijuana Advance Directives: No Physical Exam Vital Signs: Vital Signs: Last Vital Signs Temp 98.5 F 11/19/21 00:11 Pulse 94 11/19/21 00:11 Resp 20 11/19/21 00:11 BP 118/82 11/19/21 00:11 Pulse Ox 97 11/19/21 00:11 BMI result Body Mass Index 36.2 VITAL SIGNS: Reviewed. GENERAL: Well developed, well nourished, in no acute distress. HEAD: Normocephalic/atraumatic EYES: PERRLA, EOMI LUNGS: Normal breath sounds, no tachypnea SpO2<97> CARDIOVASCULAR: Regular rate and rhythm without noted murmurs ABDOMEN: Soft, non-tender, non-distended with bowel sounds SKIN: Inspection of the skin reveals no rashes NEUROLOGIC: Alert and oriented x 4. Course Course Course Narrative: 35-year-old male with history and clinical presentation consistent with viral syndrome and on review of investigations is noted be COV ID-19 positive. Patient was informed of all results, is not noted to be tachypneic, and is oxygenating well on room air. Medical Decision Making Lab Data Labs: Lab Results 11/19/21 Range/Units 00:17 Influenza Type A (PCR) NEGATIVE (Negative) Influenza Type B (PCR) NEGATIVE (Negative) RSV RNA Qual (PCR) NEGATIVE (Negative) SARS-CoV-2 RNA (RT-PCR) POSITIVE A (Negative) Discharge Plan Discharge Clinical Impression: Viral syndrome, Lab test positive for detection of COVID-19 virus Patient Disposition: Home, Self-Care Instructions: Viral Syndrome (ED), COVID-19 (Coronavirus Disease 2019) (ED) Additional Instructions: Keep drinking plenty of water. Recommend [id number] Tylenol/ibuprofen as needed for body aches, temperatures greater than 100.4. Follow-up with your primary care provider via telemedicine appointment in the next 1-2 days for re-evaluation. Return to the ER for acute worsening of symptoms. Prescriptions: No Action diazepam [Valium] 10 mg tablet 10 mg PO TID PRN (Reason: muscle spasm) Qty: 15 RF: 0 prednisone 20 mg tablet 60 mg PO DAILY 5 Days Qty: 15 RF: 0 lidocaine [Lidoderm] 5 % adhesive patch,medicated 1 patch topical DAILY Qty: 15 RF: 0 naproxen 500 mg tablet 500 mg PO BID PRN (Reason: pain) Qty: 15 RF: 0 acetaminophen [Tylenol Extra Strength] 500 mg tablet 1,000 mg PO QID PRN (Reason: fever or pain) Qty: 14 RF: 0 acetaminophen [Tylenol Extra Strength] 500 mg tablet 1,000 mg PO QID PRN (Reason: fever or pain) Qty: 14 RF: 0 prednisone 50 mg tablet 50 mg PO DAILY 4 Days Qty: 4 RF: 0 naproxen 500 mg tablet 500 mg PO BID PRN (Reason: pain) Qty: 15 RF: 0 cyclobenzaprine 10 mg tablet 10 mg PO Q8H Qty: 20 RF: 0 tramadol 50 mg tablet 50 mg PO Q6H PRN (Reason: pain) Qty: 20 RF: 0 Referrals: Maggie Pleitez MD [Primary Care Provider] - 2 days (COVID-19 positive, 11/19)
== END 2021-11-19 01:47 | disposition home or self-care (01) ==
PROVIDERS: Emergency Provider Student in an Organized Health Care Education/Training Program; PCP Internal Medicine
DX: U07.1 COVID-19 (principal); B34.9 Viral infection, unspecified
CPT/HCPCS: 0241U; 99283

== ENCOUNTER 2022-06-18 02:38 | Emergency (ER) | payer OTHER, SELFPAY ==
--- NOTE | ~2022-06-18 | XR_ITS ---
EXAMINATION: XR FOOT, LEFT CLINICAL INFORMATION: Nail through foot COMPARISON: 07/17/2021 TECHNIQUE: AP, lateral, and oblique views of the left foot. FINDINGS: Osseous alignment is anatomic. No acute fracture is seen. Plantar calcaneal spur is noted. No radiopaque foreign body identified. No significant focal soft tissue abnormality is seen. XR/XR foot LT min 3V IMPRESSION: No acute findings identified.
[2022-06-18 03:00] VITALS: BP 134/86; PULSE 86; RESP 20; TEMP 36.7; O2SAT 97; BMI 34.8
[2022-06-18 03:04] VITALS: BP 131/88; PULSE 81; TEMP 35.8; O2SAT 97
[2022-06-18] MEDS: Diphth,Pertus(ACell),Tet Adult 0.5 ML SYRINGE IM (03:13)
[2022-06-18] MEDS: levoFLOXacin 500 MG TABLET PO (03:15)
--- NOTE | 2022-06-18 03:18 | ED.SKABFB ---
HPI - Skin/Abscess/Foreign Bdy General Chief complaint: Skin/Abscess/Foreign Body Stated complaint: Stepped on a nail, at work Time Seen by Provider: 06/18/22 03:04 Source: patient Mode of arrival: ambulatory Limitations: no limitations History of Present Illness complaint: other (nail went into foot) Onset (ago): minute(s) (just prior to arrival ) Tetanus up to date: unsure Location: L foot Severity: mild Quality: dull Pain Consistency: constant Relieving factors: none Exacerbating factors: palpation Context: other (nail through work boot) Associated symptoms: other (pain) Treatments prior to arrival: none Related Data Previous Rx's Medication Instructions Recorded naproxen 500 mg tablet 500 mg PO BID PRN pain #15 tabs 03/26/21 prednisone 50 mg tablet 50 mg PO DAILY 4 days #4 tabs 03/26/21 acetaminophen 500 mg tablet 1,000 mg PO QID PRN fever or pain 04/02/21 (Tylenol Extra Strength) #14 tabs diazepam 10 mg tablet (Valium) 10 mg PO TID PRN muscle spasm #15 04/02/21 tabs lidocaine 5 % topical patch 1 patch topical DAILY pain #15 ea 04/02/21 (Lidoderm) naproxen 500 mg tablet 500 mg PO BID PRN pain #15 tabs 04/02/21 prednisone 20 mg tablet 60 mg PO DAILY Inflammation 5 days 04/02/21 #15 tabs acetaminophen 500 mg tablet 1,000 mg PO QID PRN fever or pain 07/17/21 (Tylenol Extra Strength) #14 tabs cyclobenzaprine 10 mg tablet 10 mg PO Q8H #20 tabs 09/18/21 tramadol 50 mg tablet 50 mg PO Q6H PRN pain #20 tabs 09/18/21 levofloxacin 500 mg tablet 500 mg PO DAILY #6 tabs 06/18/22 Allergies Allergy/AdvReac Type Severity Reaction Status Date / Time ibuprofen [From MOTRIN] Allergy Intermediate HX Verified 06/18/22 03:00 ULCER-CANNOT USE aspirin [ASPIRIN] AdvReac Mild INVOLUNTARY Verified 06/18/22 03:00 SPASMS Review of Systems Review of Systems: Constitutional : No Fever, No Chills, Cardiovascular : No Chest Pain, No SOB Respiratory : No Dyspnea Gastrointestinal : No abdominal pain Musculoskeletal : No Joint Swelling Skin : No rash, positive skin laceration Neuro : No Weakness, No Numbness PMFSH Past Medical History Attestation statement: The following information was validated with the patient. Medical History Bleeding ulcer Epilepsy Social History Social History Alcohol intake: never Patient Tobacco Use Status: Current everyday Tobacco user Use of substances other than those prescribed or required for medical reasons: Yes Substance Use Type: Marijuana Physical Exam Vital Signs: Vital Signs: Last Vital Signs Temp 96.4 F L 06/18/22 03:04 Pulse 81 06/18/22 03:04 Resp 20 06/18/22 03:00 BP 131/88 06/18/22 03:04 Pulse Ox 97 06/18/22 03:04 O2 Del Method 06/18/22 03:04 BMI result Body Mass Index 34.8 Appearance: Alert. Oriented X3. No acute distress. Eyes: Pupils equal, round and reactive to light. ENT: Pharynx normal. Neck: Normal inspection. Neck supple. CVS: Normal heart rate and rhythm. Pulses normal. Respiratory: No respiratory distress. Breath sounds normal. Abdomen: Soft and non-tender. Skin: Skin warm and dry. Normal skin color. Normal skin turgor. Extremities: No lower extremity edema. L foot mid lateral plantar aspect small puncture wound non bleeding Neuro: Oriented X 3. No motor deficit. No sensory deficit. MDM - Skin/Abscess/Foreign Bdy MDM Narrative Medical decision making narrative: 36 yo male non diabetic here with c/o L foot puncture wound from nail through work boot will update tetanus and start on levofloxacin given precautions for tendinopathy Discharge Plan Discharge Clinical Impression: Puncture wound Patient Disposition: Home, Self-Care Instructions: Levofloxacin (By mouth), Diphtheria/Acellular Pertussis/Tetanus Vaccine (DTaP) (By injection), Puncture Wound (ED) Additional Instructions: return to ED for any worsening symptoms or concerns antibiotic may require injury to tendons limit exertion for 2 weeks Prescriptions: New levofloxacin 500 mg tablet 500 mg PO DAILY Qty: 6 0RF Rx Instructions: start on 06/19 No Action diazepam [Valium] 10 mg tablet 10 mg PO TID PRN (Reason: muscle spasm) Qty: 15 0RF prednisone 20 mg tablet 60 mg PO DAILY 5 Days Qty: 15 0RF lidocaine [Lidoderm] 5 % adhesive patch,medicated 1 patch topical DAILY Qty: 15 0RF Rx Instructions: leave on most painful area for up to 12 hrs. May be substituted naproxen 500 mg tablet 500 mg PO BID PRN (Reason: pain) Qty: 15 0RF acetaminophen [Tylenol Extra Strength] 500 mg tablet 1,000 mg PO QID PRN (Reason: fever or pain) Qty: 14 0RF acetaminophen [Tylenol Extra Strength] 500 mg tablet 1,000 mg PO QID PRN (Reason: fever or pain) Qty: 14 0RF prednisone 50 mg tablet 50 mg PO DAILY 4 Days Qty: 4 0RF naproxen 500 mg tablet 500 mg PO BID PRN (Reason: pain) Qty: 15 0RF cyclobenzaprine 10 mg tablet 10 mg PO Q8H Qty: 20 0RF tramadol 50 mg tablet 50 mg PO Q6H PRN (Reason: pain) Qty: 20 0RF Stand Alone Forms: Work/School Release
== END 2022-06-18 04:21 | disposition home or self-care (01) ==
PROVIDERS: Emergency Provider Emergency Medicine; PCP Internal Medicine
DX: S91.332A Puncture wound without foreign body, left foot, initial encounter (principal); W45.0XXA Nail entering through skin, initial encounter; Y93.89 Activity, other specified; Y92.59 Other trade areas as the place of occurrence of the external cause; Y99.0 Civilian activity done for income or pay; F17.200 Nicotine dependence, unspecified, uncomplicated; F12.90 Cannabis use, unspecified, uncomplicated
CPT/HCPCS: 73630; 90471; 90715; 99284

== ENCOUNTER 2022-10-04 22:10 | Emergency (ER) | payer MEDICAID, SELFPAY ==
[2022-10-04 22:27] VITALS: BP 124/90; PULSE 85; RESP 16; TEMP 36.6; O2SAT 98; BMI 36.2
[2022-10-04 23:02] LABS: VBG Base Excess 0.9 mmol/L; VBG HCO3 27 mmol/L (22-26); VBG pCO2 49 mmHg; VBG pH 7.35 (7.32-7.43); VBG pO2 43 mmHg
[2022-10-04 23:03] LABS: Venous Blood Gas Refer to POC result
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
--- OUTSIDE RECORDS SUMMARY | 2022-10-05 01:00 | XMS_ITS | Continuity of Care Document ---
:1985 Author Organization [facility] Address Unavailable , Care Team Providers Name Role Phone Maik CAPONE, Maggie Becerra Primary Care Physician Encounter [facility] [place] Date(s): 08/10/21 - 09/09/21 [facility] Allergies, Adverse Reactions, Alerts Substance Reaction Severity Status NKA Active Immunizations Given and Recorded Vaccine Date Status Refusal Reason pneumococcal 23-valent vaccine 04/25/18 Given tetanus/diphtheria/pertussis, acel(Tdap) 03/25/18 Given Medications acetaminophen 325 mg oral tablet 650 mg, By Mouth, Every 4 hours, PRN, Refills 0, Maintenance, Headache, 04/26/18 11:34:34 EDT Start Date: 04/26/18 Status: OrderedCeleXA 40 mg oral tablet 40 mg, 1, tablet, By Mouth, Daily at bedtime, # 30 tablet, Refills 0, Maintenance, 04/24/18 18:40:25EDT Start Date: 04/24/18 Status: OrderedcloNIDine 0.1 mg oral tablet 0.1 mg, 1, tablet, By Mouth, 2 times a day, # 60 tablet, Refills 0, Maintenance, 04/24/18 18:41:03 EDT Start Date: 04/24/18 Status: OrderedDilantin 0 Refills, Maintenance, 05/10/17 10:43:59 Start Date: 05/10/17 Status: OrderedDilantin 100 mg oral capsule, extended release 3 capsule = 300 mg, By Mouth, 2 times a day, 0 Refills, Maintenance, 04/24/18 18:41:37 EDT Start Date: 04/24/18 Status: Orderedgabapentin 300 mg oral capsule 300 mg, 1, capsule, By Mouth, 3 times a day, # 90 capsule, Refills 0, Maintenance, 04/24/18 18:39:21EDT Start Date: 04/24/18 Status: OrderedlevETIRAcetam 1000 mg oral tablet 1 tablet = 1,000 mg, By Mouth, 2 times a day, # 60 tablet, 6 Refills, Maintenance, 08/10/21 14:08:00EDT, Tablet, [facility], 180, cm, 09/24/19 9:45:00 EDT, Height Start Date: 08/10/21 Stop Date: 03/08/22 Status: OrderedPepcid AC Maximum Strength 20 mg oral tablet 20 mg, 1, tablet, By Mouth, Daily at bedtime, # 30 tablet, Refills 0, Maintenance, 04/24/18 18:39:59EDT Start Date: 04/24/18 Status: OrderedrisperiDONE 1 mg oral tablet 1 mg, By Mouth, Daily at bedtime, Refills 0, Maintenance, 04/26/18 11:34:44 EDT Start Date: 04/26/18 Status: Ordered Social History Social History Type Response Smoking Status Former smoker entered on: 05/04/18 Sex
--- OUTSIDE RECORDS SUMMARY | 2022-10-05 01:00 | XMS_ITS | Continuity of Care Document ---
:1985 Author Organization [facility] Address Unavailable , Care Team Providers Name Role Phone Maik CAPONE, Maggie Becerra Primary Care Physician Encounter [facility] [place] Date(s): 05/24/22 - 06/23/22 [facility] Attending Physician: Oscar Be Admitting Physician: sOcar Be Referring Physician: Oscar Be Allergies, Adverse Reactions, Alerts No Known Allergies Immunizations Given and Recorded Vaccine Date Status [...] 04/24/18 18:39:21EDT Start Date: 04/24/18 Status: OrderedlevETIRAcetam 500 mg oral tablet, extended release 2 tablet = 1,000 mg, By Mouth, 2 times a day, # 120 tablet, 6 Refills, Maintenance, 05/24/22 9:25:00EDT, ER Tablet, [facility], Partial fill upon patient request if the prescription is for a schedule II opioid drug., 180, cm, 04/29... Start Date: 05/24/22 Stop Date: 12/20/22 Status: OrderedPepcid AC Maximum Strength 20 mg oral tablet 20 mg, 1, tablet, By Mouth, Daily at bedtime, # 30 tablet, Refills 0, Maintenance, 04/24/18 18:39:59EDT Start Date: 04/24/18 Status: OrderedrisperiDONE 1 mg oral tablet 1 mg, By Mouth, Daily at bedtime, Refills 0, Maintenance, 04/26/18 11:34:44 EDT Start Date: 04/26/18 Status: Ordered Problem List Condition Effective Dates Status Health Status Informant Obese class II(Confirmed) Active Social History Social History Type Response Smoking Status Former smoker entered on: 05/04/18 Sex
--- OUTSIDE RECORDS SUMMARY | 2022-10-05 01:00 | XMS_ITS | Continuity of Care Document ---
:1985 Author Organization [facility] Address Unavailable , Care Team Providers Name Role Phone Maik CAPONE, Maggie Becerra Primary Care Physician [phone] Encounter [facility] [place] Date(s): 08/10/21 - 09/09/21 [facility] Allergies, Adverse Reactions, Alerts Substance Reaction [...] tablet, 6 Refills, Maintenance, 08/10/21 14:08:00EDT, Tablet, [facility], 180, cm, 09/24/19 9:45:00 EDT, [...]
== END 2022-10-05 01:38 | disposition home or self-care (01) ==
PROVIDERS: Emergency Provider Emergency Medicine; PCP Family Medicine
DX: T59.891A Toxic effect of other specified gases, fumes and vapors, accidental (unintentional), initial encounter (principal); Y92.59 Other trade areas as the place of occurrence of the external cause; F17.200 Nicotine dependence, unspecified, uncomplicated; F12.90 Cannabis use, unspecified, uncomplicated
CPT/HCPCS: 36415; 82803; 99282; 99284

== ENCOUNTER 2022-12-28 09:52 | Outpatient (REF) | payer MEDICAID, SELFPAY ==
--- NOTE | ~2022-12-28 | XR_ITS ---
EXAMINATION: XR CHEST CLINICAL INFORMATION: Acute cough. COMPARISON: Chest radiograph 04/29/2020. TECHNIQUE: 2 views of the chest were obtained. FINDINGS: Normal appearance of the cardiomediastinal silhouette. Increase perihilar bronchial thickening with questionable more focal airspace opacities in the medial right lower lobe. No pleural effusion or pneumothorax. No acute osseous abnormalities. The visualized upper abdomen is within normal limits. XR/XR chest 2V IMPRESSION: Peribronchial thickening suggesting an infectious/inflammatory process of the small airways with a questionable developing infiltrate in the medial right lower lobe.
== END 2022-12-28 09:53 | disposition home or self-care (01) ==
LOC: HO.XRAY 09:52
PROVIDERS: PCP Internal Medicine; Visit Provider Registered Nurse
DX: R05.1 Acute cough (principal)
CPT/HCPCS: 71046

== ENCOUNTER 2023-04-12 09:00 | Outpatient (RCR) | payer MEDICAID, SELFPAY | END 2023-04-27 09:49 | disposition home or self-care (01) | LOC: HO.PT 09:00 | PROVIDERS: PCP Internal Medicine; Visit Provider Family Medicine | DX: M54.16 Radiculopathy, lumbar region (principal) | CPT/HCPCS: 97110; 97112; 97140; 97161 ==

== ENCOUNTER 2023-04-13 12:04 | Emergency (ER) | payer MEDICAID, SELFPAY ==
--- NOTE | ~2023-04-13 | XR_ITS ---
EXAMINATION: XR CHEST CLINICAL INFORMATION: Chest pain COMPARISON: Previous chest x-ray most recent November 2022 TECHNIQUE: Frontal view of the chest was obtained. FINDINGS: No significant abnormality is noted involving the heart, lungs, mediastinum, bony thorax or soft tissues. XR/XR chest 1V IMPRESSION: Unremarkable examination.
--- NOTE | 2023-04-13 12:07 | ECG_ITS ---
Test Reason : CHEST PAIN Blood Pressure : / mmHG Vent. Rate : 068 BPM Atrial Rate : 068 BPM P-R Int : 142 ms QRS Dur : 082 ms QT Int : 370 ms P-R-T Axes : 073 050 020 degrees QTc Int : 393 ms Normal sinus rhythm Normal ECG When compared to the previous EKG of No significant changes seen Referred By: Angélica Hall Electronically Signed By:Raudel Tran
--- NOTE | 2023-04-13 12:20 | ED.CHESTPAIN ---
HPI - Chest Pain General Chief Complaint: Chest Pain <FRANKIE Albarado - Last Filed: 04/13/23 12:25> Stated Complaint: Chest pain/Nausea <FRANKIE Albarado - Last Filed: 04/13/23 12:25> Time Seen by Provider: 04/13/23 12:38 <FRANKIE Albarado - Last Filed: 04/13/23 12:25> Source: patient, RN notes reviewed and old records reviewed <FRANKIE Lacy - Last Filed: 04/13/23 16:36> Mode of arrival: ambulatory <FRANKIE Lacy Last Filed: 04/13/23 16:36> History of Present Illness HPI narrative: 37-year-old male with a past medical history of epilepsy presenting to the ED complaining of sharp chest pain starting last night around midnight while at work after stressful situation. 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 Reports since incident has had constant chest pressure unremitting. Reports mild SOB initially after incident, and chest pain worsened with deep inspiration. Denies fever, chills, cough, nausea/vomiting, numbness/tingling, pedal edema, recent travel, history of clots. Does report history of cigarette and THC smoking <FRANKIE Lacy Last Filed: 04/13/23 16:36> MD complaint: chest heaviness <FRANKIE Lacy - Last Filed: 04/13/23 16:36> Related Data Home Medications: Previous Rx's Medication Instructions Recorded naproxen 500 mg tablet 500 mg PO BID PRN pain #15 tabs 03/26/21 prednisone 50 mg tablet 50 mg PO DAILY 4 days #4 tabs 03/26/21 acetaminophen 500 mg tablet 1,000 mg PO QID PRN fever or pain 04/02/21 (Tylenol Extra Strength) #14 tabs diazepam 10 mg tablet (Valium) 10 mg PO TID PRN muscle spasm #15 04/02/21 tabs lidocaine 5 % topical patch 1 patch topical DAILY pain #15 ea 04/02/21 (Lidoderm) naproxen 500 mg tablet 500 mg PO BID PRN pain #15 tabs 04/02/21 prednisone 20 mg tablet 60 mg PO DAILY Inflammation 5 days 04/02/21 #15 tabs acetaminophen 500 mg tablet 1,000 mg PO QID PRN fever or pain 07/17/21 (Tylenol Extra Strength) #14 tabs cyclobenzaprine 10 mg tablet 10 mg PO Q8H #20 tabs 09/18/21 tramadol 50 mg tablet 50 mg PO Q6H PRN pain #20 tabs 09/18/21 levofloxacin 500 mg tablet 500 mg PO DAILY #6 tabs 06/18/22 <FRANKIE Albarado Last Filed: 04/13/23 12:25> Allergies/Adverse Reactions: Allergies Allergy/AdvReac Type Severity Reaction Status Date / Time ibuprofen [From MOTRIN] Allergy Intermediate HX Verified 04/13/23 12:24 ULCER-CANNOT USE aspirin [ASPIRIN] AdvReac Mild INVOLUNTARY Verified 04/13/23 12:24 SPASMS <FRANKIE Albarado Last Filed: 04/13/23 12:25> Review of Systems Review of Systems: Constitutional: No Fever, No Chills, No Fatigue, No Malaise ENT/Mouth: No Ear Pain, No sore throat, No Rhinorrhea, No Swallowing Difficulty Eyes: No Eye Pain, No Swelling, No Redness, No Vision Changes Cardiovascular: + Chest Pain, + SOB (resolved), No Edema, No Palpitations Respiratory: No Cough, No Sputum, No Dyspnea Gastrointestinal: No Nausea, No Vomiting, No Diarrhea, No Constipation, No Abdominal pain Genitourinary: No Dysuria, No Urinary Frequency, No Hematuria, No Flank Pain Musculoskeletal: No joint pain, No Myalgias, No Joint Swelling Skin: No Skin Lesions, No rash Neuro: No Weakness, No Numbness, No Paresthesias, No Dizziness, No Headache <FRANKIE Lacy Last Filed: 04/13/23 16:36> Yes all other systems are reviewed and are negative <FRANKIE Lacy Last Filed: 04/13/23 16:36> Constitutional: Constitutional: Reports as per HPI <FRANKIE Lacy Last Filed: 04/13/23 16:36> [facility] Past Medical History Attestation statement: The following information was validated with the patient. <FRANKIE Lacy Last Filed: 04/13/23 16:36> Source: old records reviewed <FRANKIE Lacy Last Filed: 04/13/23 16:36> Medical History: Medical History Bleeding ulcer Epilepsy <FRANKIE Albarado - Last Filed: 04/13/23 12:25> Social History Social History: Social History Alcohol intake: never Patient Tobacco Use Status: Current everyday Tobacco user Smoked in Last 30 Days: Yes Use of substances other than those prescribed or required for medical reasons: Yes Substance Use Type: Marijuana Substance Use Frequency: Daily Advance Directives: No <FRANKIE Albarado - Last Filed: 04/13/23 12:25> Physical Exam Vital Signs: Vital Signs: Last Vital Signs Temp 98.1 F 04/13/23 16:01 Pulse 70 04/13/23 16:01 Resp 16 04/13/23 16:01 BP 114/88 04/13/23 16:01 Pulse Ox 97 04/13/23 16:01 O2 Del Method Room Air 04/13/23 16:01 BMI result Body Mass Index 34.2 <FRANKIE Albarado - Last Filed: 04/13/23 12:25> Vital Signs: Last Vital Signs Temp 98.1 F 04/13/23 16:01 Pulse 70 04/13/23 16:01 Resp 16 04/13/23 16:01 BP 114/88 04/13/23 16:01 Pulse Ox 97 04/13/23 16:01 O2 Del Method Room Air 04/13/23 16:01 BMI result Body Mass Index 34.2 <FRANKIE Lacy - Last Filed: 04/13/23 16:36> Const: General: cooperative, healthy appearing and no acute distress <FRANKIE Lacy - Last Filed: 04/13/23 16:36> Orientation/consciousness: patient oriented x3 <FRANKIE Lacy - Last Filed: 04/13/23 16:36> Limitations: no limitations <FRANKIE Lacy Last Filed: 04/13/23 16:36> HEENT: Head: Yes normal to inspection and Yes atraumatic <FRANKIE Lacy - Last Filed: 04/13/23 16:36> Ears: hearing grossly normal bilaterally <Leda Holguin PA - Last Filed: 04/13/23 16:36> General nose exam: Normal external nose present <Leda Holguin PA - Last Filed: 04/13/23 16:36> Face and sinus: Yes normal facial exam <Leda Holguin PA - Last Filed: 04/13/23 16:36> Eyes: General: appearance normal, both eyes and all related structures <Leda Holguin PA - Last Filed: 04/13/23 16:36> EOM: EOMs intact bilaterally <Leda Holguin PA - Last Filed: 04/13/23 16:36> Neck: Neck: Yes normal visual inspection and Yes no meningeal signs <Leda Holguin PA - Last Filed: 04/13/23 16:36> Chest: Chest palpation & inspection: normal inspection of the chest, no crepitus and tenderness (Right substernal chest wall reproducing subjective complaint) <Leda Holguin PA - Last Filed: 04/13/23 16:36> Resp: Effort & Inspection: normal respiratory effort, not labored and no respiratory distress <Leda Holguin PA - Last Filed: 04/13/23 16:36> Auscultation: clear to auscultation bilaterally, no crackles, no rales, no rhonchi and no wheezes <Leda Holguin PA - Last Filed: 04/13/23 16:36> Cardio: Rate: regular rate <Leda Holguin PA - Last Filed: 04/13/23 16:36> Heart sounds: S1 normal heart sound present and S2 normal heart sound present <Leda Holguin PA - Last Filed: 04/13/23 16:36> GI: Inspection: Yes normal to inspection <Leda Holguin PA - Last Filed: 04/13/23 16:36> Palpation (GI): Soft to palpation, nontender, no guarding and not rigid <Leda Holguin PA - Last Filed: 04/13/23 16:36> : General: Yes no CVA tenderness <Leda Holguin PA - Last Filed: 04/13/23 16:36> Back/Spine/Pelvis: Back: no CVA tenderness <FRANKIE Lacy Last Filed: 04/13/23 16:36> Skin: Rashes: no rashes <FRANKIE Lacy - Last Filed: 04/13/23 16:36> Wounds: no wounds <FRANKIE Lacy - Last Filed: 04/13/23 16:36> Neuro: General: patient oriented x3, tone normal and no meningeal signs <FRANKIE Lacy Last Filed: 04/13/23 16:36> Gait exam (Neuro): Normal gait present <FRANKIE Lacy Last Filed: 04/13/23 16:36> Extrem: General: Yes normal to inspection, Yes no pedal edema and Yes no calf tenderness <FRANKIE Lacy Last Filed: 04/13/23 16:36> Course Course Course Narrative: RME 37 yo male with a PMH of epilepsy (on Keppra, last had a seizure three nights ago).He has had sharp pain in his chest since midnight. He states he has snot slept. He states he cannot take deep breaths. A co-worker walked out on him, and his pain happened after this event. His pain is constant in the middle of his chest. His pain is sharp and not-radiating. VSS in triage, appears well. Plan: EKG done. Plan for CBC, CMP, troponin, chest x-ray. <FRANKIE Albarado - Last Filed: 04/13/23 12:25> RME 37 yo male with a PMH of epilepsy (on Keppra, last had a seizure three nights ago).He has had sharp pain in his chest since midnight. He states he has snot slept. He states he cannot take deep breaths. A co-worker walked out on him, and his pain happened after this event. His pain is constant in the middle of his chest. His pain is sharp and not-radiating. VSS in triage, appears well. Plan: EKG done. Plan for CBC, CMP, troponin, chest x-ray. -no leukocytosis. D-dimer WNL. Initial troponin WNL. Labs otherwise unremarkable -CXR unremarkable -1630--repeat troponin equivocal, mi unlikely Results discussed with patient including worrisome signs and symptoms and strict return precautions, and when to return to the emergency department. They verbalized understanding and feel safe for discharge at this time. <FRANKIE Lacy - Last Filed: 04/13/23 16:36> Medical Decision Making Medical Decision Making [facility] Narrative: 37-year-old male with a past medical history of epilepsy presenting to the ED complaining of sharp chest pain starting last night around midnight while at work after stressful situation. Reports mild SOB initially after incident, and chest pain worsened with deep inspiration. On exam vital signs stable, NAD, nontoxic appearing, chest pain reproducible on palpation, no evidence of flail chest or infection, lungs CTA, no pedal edema/calf tenderness. Concern for ACS vs PE vs anxiety induced chest pain. Lower suspicion for pneumonia/CHF, DVT Plan: EKG, labs, CXR, re-evaluate Please refer to course for remaining clinical decision making, interpretation of labs/imaging results, and discussions with consultants and/or family members. <FRANKIE Lacy - Last Filed: 04/13/23 16:36> Differential Diagnosis Differential Diagnoses: The differential diagnosis associated with the presentation includes <FRANKIE Lacy - Last Filed: 04/13/23 16:36> As above <FRANKIE Lacy - Last Filed: 04/13/23 16:36> Admission/Observation Consideration of admission/observation: Escalation of care including admission/observation considered <FRANKIE Lacy Last Filed: 04/13/23 16:36> Lab Data [facility] Lab Attestation statement: I reviewed the patient's lab results. <FRANKIE Lacy - Last Filed: 04/13/23 16:36> Result Diagrams: 04/13/23 12:44 04/13/23 12:44 <FRANKIE Albarado - Last Filed: 04/13/23 12:25> Labs: Lab Results 04/13/23 04/13/23 04/13/23 Range/Units 12:44 12:44 12:44 WBC 7.9 (4.8-10.8) X10*3/uL RBC 5.98 H (4.60-5.80) X10*6/uL Hgb 16.8 (14.0-18.0) g/dl Hct 51.3 (42.0-52.0) % MCV 85.8 (80.0-98.0) fL MCH 28.1 (27.0-33.0) pg MCHC 32.7 (31.0-36.0) g/dl RDW 12.9 (11.0-16.0) % Plt Count 227 (160-400) X10*3/uL MPV 10.5 (9.4-12.4) fL Immature Gran % (Auto) 0.3 (0.0-0.4) % Neut % (Auto) 56.9 (45-73) % Lymph % (Auto) 31.5 (20-40) % [place] % (Auto) 8.1 (2-11) % Eos % (Auto) 2.4 (0-4) % Baso % (Auto) 0.8 (0-2) % Lymph # (Auto) 2.5 (1.2-4.9) X10*3/uL [place] # (Auto) 0.6 (0.1-1.2) X10*3/uL Eos # (Auto) 0.2 (0.0-0.4) X10*3/uL Baso # (Auto) 0.1 (0.0-0.2) X10*3/uL Abs Immat Gran (auto) 0.02 (0.00-0.03) X10*3/uL Absolute Neuts (auto) 4.5 (2.0-8.3) x10*3/uL Absolute Nucleated RBC 0.000 (0.0-0.012) X10*3/uL Nucleated RBC % (auto) 0.0 (0.0-0.2) /100WBC D-Dimer High Sensitivty NG/ML Sodium 142 (135-145) mmol/L Potassium 4.8 (3.3-5.1) mmol/L Chloride 106 (96-108) mmol/L Carbon Dioxide 30 H (22-29) mmol/L Anion Gap 11 L (12-20) BUN 16 (9-16) mg/dL Creatinine 1.06 (0.5-1.4) mg/dL Estim Creat Clear Calc 122.1 Estimated GFR > 60 Random Glucose 92 (60-115) mg/dL Calcium 9.9 (8.4-10.2) mg/dL Magnesium 2.2 (1.6-2.6) mg/dL Total Bilirubin 0.8 (0.0-1.0) mg/dL Direct Bilirubin 0.2 (0.0-0.5) mg/dL AST 27 (5-37) U/L ALT 48 H (0-40) U/L Alkaline Phosphatase 94 (39-117) U/L Troponin I High Sens < 2.7 (<3.5-35.0) ng/L Total Protein 7.8 (6.5-8.0) g/dL Albumin 4.5 (3.5-5.0) g/dL 04/13/23 04/13/23 Range/Units 13:22 14:57 WBC (4.8-10.8) X10*3/uL RBC (4.60-5.80) X10*6/uL Hgb (14.0-18.0) g/dl Hct (42.0-52.0) % MCV (80.0-98.0) fL MCH (27.0-33.0) pg MCHC (31.0-36.0) g/dl RDW (11.0-16.0) % Plt Count (160-400) X10*3/uL MPV (9.4-12.4) fL Immature Gran % (Auto) (0.0-0.4) % Neut % (Auto) (45-73) % Lymph % (Auto) (20-40) % [place] % (Auto) (2-11) % Eos % (Auto) (0-4) % Baso % (Auto) (0-2) % Lymph # (Auto) (1.2-4.9) X10*3/uL [place] # (Auto) (0.1-1.2) X10*3/uL Eos # (Auto) (0.0-0.4) X10*3/uL Baso # (Auto) (0.0-0.2) X10*3/uL Abs Immat Gran (auto) (0.00-0.03) X10*3/uL Absolute Neuts (auto) (2.0-8.3) x10*3/uL Absolute Nucleated RBC (0.0-0.012) X10*3/uL Nucleated RBC % (auto) (0.0-0.2) /100WBC D-Dimer High Sensitivty < 150 NG/ML Sodium (135-145) mmol/L Potassium (3.3-5.1) mmol/L Chloride (96-108) mmol/L Carbon Dioxide (22-29) mmol/L Anion Gap (12-20) BUN (9-16) mg/dL Creatinine (0.5-1.4) mg/dL Estim Creat Clear Calc Estimated GFR Random Glucose (60-115) mg/dL Calcium (8.4-10.2) mg/dL Magnesium (1.6-2.6) mg/dL Total Bilirubin (0.0-1.0) mg/dL Direct Bilirubin (0.0-0.5) mg/dL AST (5-37) U/L ALT (0-40) U/L Alkaline Phosphatase (39-117) U/L Troponin I High Sens < 2.7 (<3.5-35.0) ng/L Total Protein (6.5-8.0) g/dL Albumin (3.5-5.0) g/dL <FRANKIE Albarado - Last Filed: 04/13/23 12:25> Lab Results 04/13/23 04/13/23 04/13/23 Range/Units 12:44 12:44 12:44 WBC 7.9 (4.8-10.8) X10*3/uL RBC 5.98 H (4.60-5.80) X10*6/uL Hgb 16.8 (14.0-18.0) g/dl Hct 51.3 (42.0-52.0) % MCV 85.8 (80.0-98.0) fL MCH 28.1 (27.0-33.0) pg MCHC 32.7 (31.0-36.0) g/dl RDW 12.9 (11.0-16.0) % Plt Count 227 (160-400) X10*3/uL MPV 10.5 (9.4-12.4) fL Immature Gran % (Auto) 0.3 (0.0-0.4) % Neut % (Auto) 56.9 (45-73) % Lymph % (Auto) 31.5 (20-40) % [place] % (Auto) 8.1 (2-11) % Eos % (Auto) 2.4 (0-4) % Baso % (Auto) 0.8 (0-2) % Lymph # (Auto) 2.5 (1.2-4.9) X10*3/uL [place] # (Auto) 0.6 (0.1-1.2) X10*3/uL Eos # (Auto) 0.2 (0.0-0.4) X10*3/uL Baso # (Auto) 0.1 (0.0-0.2) X10*3/uL Abs Immat Gran (auto) 0.02 (0.00-0.03) X10*3/uL Absolute Neuts (auto) 4.5 (2.0-8.3) x10*3/uL Absolute Nucleated RBC 0.000 (0.0-0.012) X10*3/uL Nucleated RBC % (auto) 0.0 (0.0-0.2) /100WBC D-Dimer High Sensitivty NG/ML Sodium 142 (135-145) mmol/L Potassium 4.8 (3.3-5.1) mmol/L Chloride 106 (96-108) mmol/L Carbon Dioxide 30 H (22-29) mmol/L Anion Gap 11 L (12-20) BUN 16 (9-16) mg/dL Creatinine 1.06 (0.5-1.4) mg/dL Estim Creat Clear Calc 122.1 Estimated GFR > 60 Random Glucose 92 (60-115) mg/dL Calcium 9.9 (8.4-10.2) mg/dL Magnesium 2.2 (1.6-2.6) mg/dL Total Bilirubin 0.8 (0.0-1.0) mg/dL Direct Bilirubin 0.2 (0.0-0.5) mg/dL AST 27 (5-37) U/L ALT 48 H (0-40) U/L Alkaline Phosphatase 94 (39-117) U/L Troponin I High Sens < 2.7 (<3.5-35.0) ng/L Total Protein 7.8 (6.5-8.0) g/dL Albumin 4.5 (3.5-5.0) g/dL 04/13/23 04/13/23 Range/Units 13:22 14:57 WBC (4.8-10.8) X10*3/uL RBC (4.60-5.80) X10*6/uL Hgb (14.0-18.0) g/dl Hct (42.0-52.0) % MCV (80.0-98.0) fL MCH (27.0-33.0) pg MCHC (31.0-36.0) g/dl RDW (11.0-16.0) % Plt Count (160-400) X10*3/uL MPV (9.4-12.4) fL Immature Gran % (Auto) (0.0-0.4) % Neut % (Auto) (45-73) % Lymph % (Auto) (20-40) % [place] % (Auto) (2-11) % Eos % (Auto) (0-4) % Baso % (Auto) (0-2) % Lymph # (Auto) (1.2-4.9) X10*3/uL [place] # (Auto) (0.1-1.2) X10*3/uL Eos # (Auto) (0.0-0.4) X10*3/uL Baso # (Auto) (0.0-0.2) X10*3/uL Abs Immat Gran (auto) (0.00-0.03) X10*3/uL Absolute Neuts (auto) (2.0-8.3) x10*3/uL Absolute Nucleated RBC (0.0-0.012) X10*3/uL Nucleated RBC % (auto) (0.0-0.2) /100WBC D-Dimer High Sensitivty < 150 NG/ML Sodium (135-145) mmol/L Potassium (3.3-5.1) mmol/L Chloride (96-108) mmol/L Carbon Dioxide (22-29) mmol/L Anion Gap (12-20) BUN (9-16) mg/dL Creatinine (0.5-1.4) mg/dL Estim Creat Clear Calc Estimated GFR Random Glucose (60-115) mg/dL Calcium (8.4-10.2) mg/dL Magnesium (1.6-2.6) mg/dL Total Bilirubin (0.0-1.0) mg/dL Direct Bilirubin (0.0-0.5) mg/dL AST (5-37) U/L ALT (0-40) U/L Alkaline Phosphatase (39-117) U/L Troponin I High Sens < 2.7 (<3.5-35.0) ng/L Total Protein (6.5-8.0) g/dL Albumin (3.5-5.0) g/dL <FRANKIE Lacy - Last Filed: 04/13/23 16:36> Independent Interpretation I performed an independent interpretation of an: EKG (EKG normal sinus rhythm with PVC at a rate of 83. QRS 92. QTC 484. No STEMI.) <FRANKIE Lacy - Last Filed: 04/13/23 16:36> Radiology Impression Discussion of test interpretation with radiology: I have reviewed the radiologist's reading. <FRANKIE Lacy - Last Filed: 04/13/23 16:36> External Record Review External record reviewed: Inpatient record, Office record, Outpatient record, Prior outpatient labs, Prior outpatient radiology, Primary care record and Outside ED record <FRANKIE Lacy - Last Filed: 04/13/23 16:36> Tests considered The following testing was considered but not selected: As above <FRANKIE Lacy - Last Filed: 04/13/23 16:36> Discharge Plan Discharge Clinical Impression: Atypical chest pain <FRANKIE Albarado - Last Filed: 04/13/23 12:25> Patient Disposition: Home, Self-Care <FRANKIE Albarado - Last Filed: 04/13/23 12:25> Instructions: Chest Pain (DC) <FRANKIE Albarado - Last Filed: 04/13/23 12:25> Additional Instructions: Your blood work and chest x-ray were reassuring. Take Tylenol for her pain. Please follow-up with your primary care doctor and Cardiology If your symptoms persist or worsen, you develop shortness of breath, swelling in your legs please return to the ED <FRANKIE Albarado - Last Filed: 04/13/23 12:25> Prescriptions: No Action diazepam [Valium] 10 mg tablet 10 mg PO TID PRN (Reason: muscle spasm) Qty: 15 0RF prednisone 20 mg tablet 60 mg PO DAILY 5 Days Qty: 15 0RF lidocaine [Lidoderm] 5 % adhesive patch,medicated 1 patch topical DAILY Qty: 15 0RF Rx Instructions: leave on most painful area for up to 12 hrs. May be substituted naproxen 500 mg tablet 500 mg PO BID PRN (Reason: pain) Qty: 15 0RF acetaminophen [Tylenol Extra Strength] 500 mg tablet 1,000 mg PO QID PRN (Reason: fever or pain) Qty: 14 0RF acetaminophen [Tylenol Extra Strength] 500 mg tablet 1,000 mg PO QID PRN (Reason: fever or pain) Qty: 14 0RF prednisone 50 mg tablet 50 mg PO DAILY 4 Days Qty: 4 0RF naproxen 500 mg tablet 500 mg PO BID PRN (Reason: pain) Qty: 15 0RF levofloxacin 500 mg tablet 500 mg PO DAILY Qty: 6 0RF Rx Instructions: start on 06/19 cyclobenzaprine 10 mg tablet 10 mg PO Q8H Qty: 20 0RF tramadol 50 mg tablet 50 mg PO Q6H PRN (Reason: pain) Qty: 20 0RF <FRANKIE Albarado - Last Filed: 04/13/23 12:25> Referrals: [facility] [place] [facility] [Provider Group] Maggie Pleitez MD [Primary Care Provider] - <FRANKIE Albarado - Last Filed: 04/13/23 12:25> Stand Alone Forms: Work/School Release <FRANKIE Albarado - Last Filed: 04/13/23 12:25>
[2023-04-13 12:21] VITALS: BP 130/88; PULSE 72; RESP 18; TEMP 36.1; O2SAT 95; BMI 34.2
[2023-04-13 12:54] LABS: MANUAL DIFF FLAG NO
[2023-04-13 12:55] LABS: Basophils Absolute Auto 0.1 X10*3/uL (0.0-0.2); Basophils Percent Auto 0.8 % (0-2); Eosinophils Absolute Auto 0.2 X10*3/uL (0.0-0.4); Eosinophils Percent Auto 2.4 % (0-4); Hematocrit 51.3 % (42.0-52.0); Hemoglobin 16.8 g/dl (14.0-18.0); Imm Gran Abs Auto 0.02 X10*3/uL (0.00-0.03); Imm Gran Pct Auto 0.3 % (0.0-0.4); Lymphocytes Absolute Auto 2.5 X10*3/uL (1.2-4.9); Lymphocytes Percent Auto 31.5 % (20-40); Mean Corpuscular HGB Conc 32.7 g/dl (31.0-36.0); Mean Corpuscular Hemoglobin 28.1 pg (27.0-33.0); Mean Corpuscular Volume 85.8 fL (80.0-98.0); Mean Platelet Volume 10.5 fL (9.4-12.4); Monocytes Absolute Auto 0.6 X10*3/uL (0.1-1.2); Monocytes Percent Auto 8.1 % (2-11); Neutrophils Absolute Auto 4.5 x10*3/uL (2.0-8.3); Neutrophils Percent Auto 56.9 % (45-73); Platelet Count 227 X10*3/uL (160-400); Red Blood Count 5.98 X10*6/uL (4.60-5.80); Red Cell Distribution Width 12.9 % (11.0-16.0); White Blood Count 7.9 X10*3/uL (4.8-10.8)
[2023-04-13 13:11] LABS: Alanine Aminotransferase 48 U/L (0-40); Albumin Level 4.5 g/dL (3.5-5.0); Alkaline Phosphatase 94 U/L (39-117); Anion Gap 11 (12-20); Aspartate Amino Transferase 27 U/L (5-37); Bilirubin Direct 0.2 mg/dL (0.0-0.5); Bilirubin Total 0.8 mg/dL (0.0-1.0); Blood Urea Nitrogen 16 mg/dL (9-16); Calcium 9.9 mg/dL (8.4-10.2); Carbon Dioxide 30 mmol/L (22-29); Chloride 106 mmol/L (96-108); Creatinine Clr Calc Pharmacy 122.1; Estimated Glomerular Filt Rate > 60; Glucose Random 92 mg/dL (60-115); Magnesium 2.2 mg/dL (1.6-2.6); Potassium 4.8 mmol/L (3.3-5.1); Sodium 142 mmol/L (135-145); Total Protein 7.8 g/dL (6.5-8.0)
[2023-04-13 13:35] LABS: Troponin-I High Sensitivity < 2.7 ng/L (<3.5-35.0)
[2023-04-13 13:55] LABS: D Dimer High Sensitivity < 150 NG/ML
[2023-04-13 14:00] VITALS: PULSE 68; RESP 17; TEMP 36.7; O2SAT 97
--- NOTE | 2023-04-13 14:06 | PC.NURSE ---
pt a&o x4. reports pressure/discomfort in midsternal chest area since last night. awaiting troponin results. pt currently resting quietly on stretcher in no apparent distress with significant other at bedside. vss. carmentm
[2023-04-13 16:01] VITALS: BP 114/88; PULSE 70; RESP 16; TEMP 36.7; O2SAT 97
[2023-04-13 16:31] LABS: Troponin-I High Sensitivity < 2.7 ng/L (<3.5-35.0)
== END 2023-04-13 17:00 | disposition home or self-care (01) ==
PROVIDERS: Physician Assistant; Emergency Provider Student in an Organized Health Care Education/Training Program; PCP Internal Medicine
DX: R07.89 Other chest pain (principal); R11.2 Nausea with vomiting, unspecified; F17.200 Nicotine dependence, unspecified, uncomplicated; Z71.6 Tobacco abuse counseling
CPT/HCPCS: 36415; 71045; 80048; 80076; 83735; 84484; 85025; 85379; 93005; 99283; 99285

== ENCOUNTER 2023-06-24 09:48 | Outpatient (REF) | payer MEDICAID, SELFPAY ==
[2023-06-24 14:43] LABS: CT PCR NOT DETECTED (Not Detect.); NG PCR NOT DETECTED (Not Detect.)
== END 2023-06-24 09:49 | disposition home or self-care (01) ==
LOC: HO.HHCL 09:48
PROVIDERS: Visit Provider Internal Medicine
DX: A53.9 Syphilis, unspecified (principal)
CPT/HCPCS: 0353U

== ENCOUNTER 2023-10-10 18:53 | Outpatient (REF) | payer MEDICAID, SELFPAY ==
[2023-10-10 19:39] LABS: Influenza A PCR NEGATIVE (Negative); Influenza B PCR NEGATIVE (Negative); Resp Syncy Virus RNA Qual PCR NEGATIVE (Negative); SARS COV2 PCR INHOUSE NEGATIVE (Negative)
== END 2023-10-10 18:54 | disposition home or self-care (01) ==
LOC: HO.HHCLNP 18:53
PROVIDERS: Visit Provider Internal Medicine
DX: J02.9 Acute pharyngitis, unspecified (principal); Z11.52 Encounter for screening for COVID-19
CPT/HCPCS: 0241U

== ENCOUNTER 2023-11-05 23:29 | Emergency (ER) | payer MEDICAID, SELFPAY ==
[2023-11-05 23:59] VITALS: BP 149/90; PULSE 85; RESP 16; TEMP 37.6; O2SAT 95; BMI 34.9
--- NOTE | 2023-11-06 00:47 | ED_ITS ---
HPI - GI Bleed General Chief complaint: GI Bleed Stated complaint: erupted ulcer ? Time Seen by Provider: 11/06/23 00:47 Source: patient Mode of arrival: ambulatory Limitations: no limitations History of Present Illness HPI Narrative: Patient with history of bleeding peptic ulcer disease about 10 years ago been stable since then no recurrence of the upper GI bleeding had small amount of rectal bleed last year which was told not significant no history of hemorrhoids does have history of constipation noticed bright red blood today after patient sneezed at work prior to that patient had a hard bowel movement patient feel pain in the rectum no abdominal pain no nausea no vomiting Related Data Previous Rx's Medication Instructions Recorded naproxen 500 mg tablet 500 mg PO BID PRN pain #15 tabs 03/26/21 prednisone 50 mg tablet 50 mg PO DAILY 4 days #4 tabs 03/26/21 acetaminophen 500 mg tablet 1,000 mg (2 x 500 mg) PO QID PRN 04/02/21 (Tylenol Extra Strength) fever or pain #14 tabs diazepam 10 mg tablet (Valium) 10 mg PO TID PRN muscle spasm #15 04/02/21 tabs lidocaine 5 % topical patch 1 patch topical DAILY pain #15 ea 04/02/21 (Lidoderm) naproxen 500 mg tablet 500 mg PO BID PRN pain #15 tabs 04/02/21 prednisone 20 mg tablet 60 mg (3 x 20 mg) PO DAILY 04/02/21 Inflammation 5 days #15 tabs acetaminophen 500 mg tablet 1,000 mg (2 x 500 mg) PO QID PRN 07/17/21 (Tylenol Extra Strength) fever or pain #14 tabs cyclobenzaprine 10 mg tablet 10 mg PO Q8H #20 tabs 09/18/21 tramadol 50 mg tablet 50 mg PO Q6H PRN pain #20 tabs 09/18/21 levofloxacin 500 mg tablet 500 mg PO DAILY #6 tabs 06/18/22 hydrocortisone acetate 25 mg 25 mg ID BID #12 ea 11/06/23 rectal suppository (Anusol-HC) polyethylene glycol 3350 17 17 g PO DAILY #510 grams 11/06/23 gram/dose oral powder (Miralax) Allergies Allergy/AdvReac Type Severity Reaction Status Date / Time ibuprofen [From MOTRIN] Allergy Intermediate HX Verified 04/13/23 12:24 ULCER-CANNOT USE aspirin [ASPIRIN] AdvReac Mild INVOLUNTARY Verified 04/13/23 12:24 SPASMS Review of Systems 2 Review of Systems: Yes all other systems are reviewed and are negative [facility] Past Medical History Medical History Bleeding ulcer Epilepsy Social History Social History Alcohol intake: never Patient Tobacco Use Status: Current everyday Tobacco user Smoked in Last 30 Days: Yes Use of substances other than those prescribed or required for medical reasons: Yes Substance Use Type: Marijuana Substance Use Frequency: Daily Advance Directives: No Advance Directives Information Provided: No Physical Exam 2 Vital Signs: Vital Signs: Last Vital Signs Temp 99.7 F 11/05/23 23:59 Pulse 85 11/05/23 23:59 Resp 16 11/05/23 23:59 BP 149/90 H 11/05/23 23:59 Pulse Ox 95 11/05/23 23:59 O2 Del Method Room Air 11/05/23 23:59 BMI result Body Mass Index 34.9 Appearance: Alert. Oriented X3. No acute distress. Eyes: No pallor or icterus ENT: Pharynx normal. Oral Mucosa moist Neck: Normal inspection. Neck supple. CVS: Normal heart rate and rhythm. Pulses normal. Respiratory: No respiratory distress. Equal air entry bilateral, no wheezing/rales/rhonchi Abdomen: Soft and nontender. Bowel sounds are present, no mass palpable, no CVA tenderness rectum: Brown stool hemorrhoids palpable occult negative Skin: Skin warm and dry. Normal skin color. Normal skin turgor. Extremities: No lower extremity edema. No calf tenderness Neuro: Oriented X 3. Medical Decision Making Medical Decision Making [facility] Narrative: Patient with rectal bleed bright red blood after sneezing with H&H stable internal hemorrhoid palpable likely the cause for the bleed patient advised to avoid constipation take and anusol suppository Differential Diagnosis Differential Diagnoses: The differential diagnosis associated with the presentation includes As above Lab Data [facility] Lab Attestation statement: I reviewed the patient's lab results. 11/06/23 00:56 11/06/23 00:56 Labs: Lab Results 11/06/23 Range/Units 00:56 WBC 10.3 (4.8-10.8) X10*3/uL RBC 5.65 (4.60-5.80) X10*6/uL Hgb 15.8 (14.0-18.0) g/dl Hct 47.6 (42.0-52.0) % MCV 84.2 (80.0-98.0) fL MCH 28.0 (27.0-33.0) pg MCHC 33.2 (31.0-36.0) g/dl RDW 12.6 (11.0-16.0) % Plt Count 195 (160-400) X10*3/uL MPV 10.9 (9.4-12.4) fL Immature Gran % (Auto) 0.3 (0.0-0.4) % Neut % (Auto) 56.2 (45-73) % Lymph % (Auto) 34.6 (20-40) % [place] % (Auto) 6.9 (2-11) % Eos % (Auto) 1.6 (0-4) % Baso % (Auto) 0.4 (0-2) % Lymph # (Auto) 3.6 (1.2-4.9) X10*3/uL [place] # (Auto) 0.7 (0.1-1.2) X10*3/uL Eos # (Auto) 0.2 (0.0-0.4) X10*3/uL Baso # (Auto) 0.0 (0.0-0.2) X10*3/uL Abs Immat Gran (auto) 0.03 (0.00-0.03) X10*3/uL Absolute Neuts (auto) 5.8 (2.0-8.3) x10*3/uL Absolute Nucleated RBC 0.000 (0.0-0.012) X10*3/uL Nucleated RBC % (auto) 0.0 (0.0-0.2) /100WBC Hold Blue Top SEE NOTE Sodium 143 (135-145) mmol/L Potassium 4.0 (3.3-5.1) mmol/L Chloride 110 H (96-108) mmol/L Carbon Dioxide 24 (22-29) mmol/L Anion Gap 13 (12-20) BUN 15 (9-16) mg/dL Creatinine 1.19 (0.5-1.4) mg/dL Estim Creat Clear Calc 109.8 Estimated GFR > 60 Random Glucose 97 (60-115) mg/dL Calcium 9.6 (8.4-10.2) mg/dL Total Bilirubin 0.5 (0.0-1.0) mg/dL AST 24 (5-37) U/L ALT 36 (0-40) U/L Alkaline Phosphatase 81 (39-117) U/L Total Protein 8.2 H (6.5-8.0) g/dL Albumin 4.4 (3.5-5.0) g/dL Lipase 28 (8-78) U/L Discharge Plan Discharge Clinical Impression: Hemorrhoids Patient Disposition: Home, Self-Care Instructions: Hemorrhoids (ED) Additional Instructions: Avoid constipation/straining Stool softener as advised Rectal suppositories as advised Follow-up with surgeon/PCP if bleeding continues Prescriptions: New polyethylene glycol 3350 [Miralax] 17 gram/dose powder 17 g PO DAILY Qty: 510 0RF hydrocortisone acetate [Anusol-HC] 25 mg suppository 25 mg ID BID Qty: 12 0RF No Action diazepam [Valium] 10 mg tablet 10 mg PO TID PRN (Reason: muscle spasm) Qty: 15 0RF prednisone 20 mg tablet 60 mg PO DAILY 5 Days Qty: 15 0RF lidocaine [Lidoderm] 5 % adhesive patch,medicated 1 patch topical DAILY Qty: 15 0RF Rx Instructions: leave on most painful area for up to 12 hrs. May be substituted naproxen 500 mg tablet 500 mg PO BID PRN (Reason: pain) Qty: 15 0RF acetaminophen [Tylenol Extra Strength] 500 mg tablet 1,000 mg PO QID PRN (Reason: fever or pain) Qty: 14 0RF acetaminophen [Tylenol Extra Strength] 500 mg tablet 1,000 mg PO QID PRN (Reason: fever or pain) Qty: 14 0RF prednisone 50 mg tablet 50 mg PO DAILY 4 Days Qty: 4 0RF naproxen 500 mg tablet 500 mg PO BID PRN (Reason: pain) Qty: 15 0RF levofloxacin 500 mg tablet 500 mg PO DAILY Qty: 6 0RF Rx Instructions: start on 06/19 cyclobenzaprine 10 mg tablet 10 mg PO Q8H Qty: 20 0RF tramadol 50 mg tablet 50 mg PO Q6H PRN (Reason: pain) Qty: 20 0RF
[2023-11-06 01:01] LABS: MANUAL DIFF FLAG NO
[2023-11-06 01:05] LABS: Basophils Percent Auto 0.4 % (0-2); Eosinophils Absolute Auto 0.2 X10*3/uL (0.0-0.4); Eosinophils Percent Auto 1.6 % (0-4); Hematocrit 47.6 % (42.0-52.0); Hemoglobin 15.8 g/dl (14.0-18.0); Imm Gran Abs Auto 0.03 X10*3/uL (0.00-0.03); Imm Gran Pct Auto 0.3 % (0.0-0.4); Lymphocytes Absolute Auto 3.6 X10*3/uL (1.2-4.9); Lymphocytes Percent Auto 34.6 % (20-40); Mean Corpuscular HGB Conc 33.2 g/dl (31.0-36.0); Mean Corpuscular Volume 84.2 fL (80.0-98.0); Mean Platelet Volume 10.9 fL (9.4-12.4); Monocytes Absolute Auto 0.7 X10*3/uL (0.1-1.2); Monocytes Percent Auto 6.9 % (2-11); Neutrophils Absolute Auto 5.8 x10*3/uL (2.0-8.3); Neutrophils Percent Auto 56.2 % (45-73); Platelet Count 195 X10*3/uL (160-400); Red Blood Count 5.65 X10*6/uL (4.60-5.80); Red Cell Distribution Width 12.6 % (11.0-16.0); White Blood Count 10.3 X10*3/uL (4.8-10.8)
[2023-11-06 01:17] LABS: Lipase 28 U/L (8-78)
[2023-11-06 01:20] LABS: Alanine Aminotransferase 36 U/L (0-40); Albumin Level 4.4 g/dL (3.5-5.0); Alkaline Phosphatase 81 U/L (39-117); Anion Gap 13 (12-20); Aspartate Amino Transferase 24 U/L (5-37); Bilirubin Total 0.5 mg/dL (0.0-1.0); Blood Urea Nitrogen 15 mg/dL (9-16); Calcium 9.6 mg/dL (8.4-10.2); Carbon Dioxide 24 mmol/L (22-29); Chloride 110 mmol/L (96-108); Creatinine Clr Calc Pharmacy 109.8; Estimated Glomerular Filt Rate > 60; Glucose Random 97 mg/dL (60-115); Sodium 143 mmol/L (135-145); Total Protein 8.2 g/dL (6.5-8.0)
[2023-11-06 01:23] LABS: OBS Int Ctl Valid YES; OBS1 POSITIVE (NEGATIVE)
[2023-11-06 01:55] VITALS: BP 130/98; PULSE 76; RESP 16; O2SAT 96
== END 2023-11-06 02:06 | disposition home or self-care (01) ==
PROVIDERS: Emergency Provider Internal Medicine
DX: K64.8 Other hemorrhoids (principal); K62.5 Hemorrhage of anus and rectum; F17.200 Nicotine dependence, unspecified, uncomplicated; F12.90 Cannabis use, unspecified, uncomplicated; Z79.899 Other long term (current) drug therapy
CPT/HCPCS: 36415; 80053; 82272; 83690; 85025; 99283; 99284

== ENCOUNTER 2023-12-13 09:12 | Outpatient (REF) | payer MEDICAID, SELFPAY ==
[2023-12-13 12:03] LABS: Anion Gap 11 (12-20); Blood Urea Nitrogen 15 mg/dL (9-16); Calcium 9.6 mg/dL (8.4-10.2); Carbon Dioxide 29 mmol/L (22-29); Chloride 103 mmol/L (96-108); Estimated Glomerular Filt Rate > 60; Glucose Random 106 mg/dL (60-115); Potassium 4.2 mmol/L (3.3-5.1); Sodium 139 mmol/L (135-145)
[2023-12-13 13:18] LABS: CT PCR NOT DETECTED (Not Detect.); NG PCR NOT DETECTED (Not Detect.)
[2023-12-13 13:21] LABS: Syphilis Screen Reactive (Nonreactive)
[2023-12-14 08:12] LABS: HBS Num1 > 1000.00 mIU/mL (0-7.99); HBc Num1 0.12 S/CO (0.00-0.79); HBsAGNum1 0.24 S/CO (0.00-0.99); HIV AB/AG Nonreactive (Nonreactive); HIV Num 1 0.08 S/CO (0.00-0.99); Hepatitis A Antibody IgM 0.11 Index (0-0.79); Hepatitis B Core Antibody Nonreactive (Nonreactive); Hepatitis B Surface Antigen Negative (Negative); ~HepC Num1 0.13 S/CO (0.00-0.79); ~Hepatitis A Antibody IgM Nonreactive (Nonreactive); ~Hepatitis B Surface Antibody REACTIVE (Nonreactive); ~Hepatitis C Antibody Nonreactive (Nonreactive)
[2023-12-16 15:20] LABS: RPR Quantitative Reactive 1:16 (Nonreactive); T.Pallidum Particle Agg Test Reactive (Nonreactive)
== END 2023-12-13 09:13 | disposition home or self-care (01) ==
LOC: HO.HHCL 09:12
PROVIDERS: Visit Provider Internal Medicine
DX: Z11.4 Encounter for screening for human immunodeficiency virus [HIV] (principal); A53.9 Syphilis, unspecified
CPT/HCPCS: 0353U; 36415; 80048; 86592; 86704; 86706; 86709; 86780; 86803; 87340; 87389

== ENCOUNTER 2024-05-22 20:58 | Emergency (ER) | payer MEDICAID, SELFPAY ==
--- NOTE | ~2024-05-22 | XR_ITS ---
RADIOGRAPH THORACIC AND LUMBAR SPINE CLINICAL HISTORY: Pain. COMPARISON: MRI lumbar spine 04/07/2021. Radiograph thoracic and lumbar spine 03/26/2021. TECHNIQUE: 3 views of the thoracic spine and 3 views of the lumbar spine. FINDINGS: Thoracic spine: No acute compression deformity or traumatic subluxation. Normal appearance of the posterior elements. No significant paraspinal soft tissue abnormality. Lumbar spine: No evidence of acute compression deformity or traumatic subluxation. Mild intervertebral disc height loss and facet arthropathy in the lower lumbar spine. Small multilevel anterior marginal osteophytes. Symmetric SI joints. No significant paraspinal soft tissue abnormality. XR/XR lumbar spine 2-3V IMPRESSION: 1. No acute compression deformity or traumatic subluxation. 2. Mild lumbar spondylosis.
--- NOTE | ~2024-05-22 | XR_ITS ---
RADIOGRAPH THORACIC AND LUMBAR SPINE CLINICAL HISTORY: Pain. COMPARISON: MRI lumbar spine 04/07/2021. Radiograph thoracic and lumbar spine 03/26/2021. TECHNIQUE: 3 views of the thoracic spine and 3 views of the lumbar spine. FINDINGS: Thoracic spine: No acute compression deformity or traumatic subluxation. Normal appearance of the posterior elements. No significant paraspinal soft tissue abnormality. Lumbar spine: No evidence of acute compression deformity or traumatic subluxation. Mild intervertebral disc height loss and facet arthropathy in the lower lumbar spine. Small multilevel anterior marginal osteophytes. Symmetric SI joints. No significant paraspinal soft tissue abnormality. XR/XR thoracic spine 2V IMPRESSION: 1. No acute compression deformity or traumatic subluxation. 2. Mild lumbar spondylosis.
[2024-05-22 21:08] VITALS: BP 147/103; PULSE 95; RESP 18; TEMP 36.4; O2SAT 98; BMI 38.8
--- NOTE | 2024-05-22 22:55 | ED_ITS ---
HPI - Back Pain/Injury General Chief Complaint: Back Pain/Injury Stated Complaint: low back pain Time Seen by Provider: 05/22/24 22:20 Source: patient Mode of arrival: ambulatory Limitations: no limitations History of Present Illness ED Provider: DR. Cui HPI Narrative: 38-year-old male with chronic back pain, patient follow with a spine surgeon had recent MRI, patient also had a history of multiple cortisone injections in the back which is usually give a temporary relief of patient's symptoms. Patient had to carry heavy load at work 2 days ago when the pain started next day, no urinary or stool incontinence, no weakness, no numbness in the lower extremities, able to ambulate with steady gait. No fever chills, no history of IV drug abuse. Related Data Previous Rx's ?Medication ?Instructions ?Recorded naproxen 500 mg tablet 500 mg PO BID PRN pain #15 tabs 03/26/21 prednisone 50 mg tablet 50 mg PO DAILY 4 days #4 tabs 03/26/21 acetaminophen 500 mg tablet 1,000 mg (2 x 500 mg) PO QID PRN 04/02/21 (Tylenol Extra Strength) fever or pain #14 tabs diazepam 10 mg tablet (Valium) 10 mg PO TID PRN muscle spasm #15 04/02/21 tabs lidocaine 5 % topical patch 1 patch topical DAILY pain #15 ea 04/02/21 (Lidoderm) naproxen 500 mg tablet 500 mg PO BID PRN pain #15 tabs 04/02/21 prednisone 20 mg tablet 60 mg (3 x 20 mg) PO DAILY 04/02/21 Inflammation 5 days #15 tabs acetaminophen 500 mg tablet 1,000 mg (2 x 500 mg) PO QID PRN 07/17/21 (Tylenol Extra Strength) fever or pain #14 tabs cyclobenzaprine 10 mg tablet 10 mg PO Q8H #20 tabs 09/18/21 tramadol 50 mg tablet 50 mg PO Q6H PRN pain #20 tabs 09/18/21 levofloxacin 500 mg tablet 500 mg PO DAILY #6 tabs 06/18/22 hydrocortisone acetate 25 mg 25 mg [place] BID #12 ea 11/06/23 rectal suppository (Anusol-HC) polyethylene glycol 3350 17 17 g PO DAILY #510 grams 11/06/23 gram/dose oral powder (Miralax) oxycodone 5 mg tablet 5 mg PO BID PRN pain #7 tabs 05/22/24 Allergies Allergy/AdvReac Type Severity Reaction Status Date / Time ibuprofen [From MOTRIN] Allergy Intermediate HX Verified 05/22/24 21:10 ULCER-CANNOT USE aspirin [ASPIRIN] AdvReac Mild INVOLUNTARY Verified 05/22/24 21:10 SPASMS Review of Systems Review of Systems: All other systems are reviewed and are negative Constitutional: Reports as per HPI and Reports no additional constitutional complaints Eyes: Reports as per HPI and Reports no additional eye complaints Reports system reviewed and no additional complaints, except as documented Cardiovascular: Reports as per HPI and Reports no additional cardiovascular c omplaints Respiratory: Reports as per HPI and Reports no additional respiratory complaints Gastrointestinal: Reports as per HPI and Reports no additional gastrointestinal complaints Genitourinary: Reports no additional female genitourinary complaints Musculoskeletal: Reports no additional musculoskeletal complaints Skin/Breast: Reports system reviewed and no additional complaints, except as docu Psychiatric: Reports no additional psychiatric complaints Endocrine: Reports no additional endocrine complaints Hematologic/Lymphatic: Reports no additional hematologic/lymphatic complaints Allergic/Immunologic: Reports no additional allergic/immunologic complaints Reports system reviewed and no additional complaints, except as documented and Reports Abnormal speech present [facility] Past Medical History Medical History Bleeding ulcer Epilepsy Social History Social History Alcohol intake: never Patient Tobacco Use Status: Current everyday Tobacco user Substance Use Type: Marijuana Advance Directives: No Advance Directives Information Provided: No Do you have a plan to hurt others: No Plan Physical Exam Vital Signs: Vital Signs: Last Vital Signs Temp 97.5 F 05/22/24 21:08 Pulse 95 05/22/24 21:08 Resp 18 05/22/24 21:08 BP 147/103 H 05/22/24 21:08 Pulse Ox 98 05/22/24 21:08 O2 Del Method Room Air 05/22/24 21:08 BMI result Body Mass Index 38.8 Vital signs have been reviewed and appear to be correct. Blood pressure elevat ed. Heart rate normal. Respiratory rate normal. Temperature normal. Oxygen saturation normal. Appearance: Alert. Oriented X3. No acute distress. Head: Normal external exam. Normocephalic. Atraumatic. No [place] signs noted. No raccoon eyes noted Eyes: PERRLA. EOMI. Conjunctiva and sclera normal. Eyelids normal. ENT: TM's Normal. Pharynx normal. Uvula midline. Moist mucous membranes. No trismus noted. No drooling noted. No muffled voice noted. Neck: Normal inspection. Neck supple. FROM. No adenopathy. Thyroid Normal. No meningeal signs. No neck mass noted. CVS: Normal heart rate and rhythm. Heart sound normal. No murmurs noted. Pulses normal throughout. Respiratory: No respiratory distress. Painless inspiration. Breath sounds normal. No wheezes/rales/rhonchi noted. Chest nontender. No accessory muscle usage noted or decreased air movement noted. Abdomen: Soft and nontender. Bowel sounds normal in all 4 quadrants. No distention noted. No organomegaly noted. No visible injury noted. Back: No CVA tenderness. Full range of motion noted, mild mid back tenderness, no step-off, no deformity. Skin: Skin warm and dry. Normal skin color. Normal skin turgor. No rashes/lesions/lacerations noted. Extremities: No lower extremity edema. Extremities exhibit normal range of motion. Extremities nontender. Neuro: Oriented X 3. Cranial nerve exam: II-XII are grossly intact No motor deficit. No sensory deficit. Reflexes normal. Perianal sensation is intact, able to ambulate steadily Course Reevaluation(s) Reevaluation #1: Acute on chronic back pain Time: 23:00 Medical Decision Making Differential Diagnosis Differential Diagnoses: The differential diagnosis associated with the presentation includes (Cauda equinus syndrome, acute on chronic back pain, compression fracture.) Admission/Observation Consideration of admission/observation: Escalation of care including ad mission/observation considered Independent Interpretation I performed an independent interpretation of an: Plain X-Ray (Thoracic, lumbar spine x-ray:1. No acute compression deformity or traumatic subluxation. 2. Mild lumbar spondylosis. ) Radiology Impression Discussion of test interpretation with radiology: I have reviewed the radiologist's reading. Discharge Plan Discharge Clinical Impression: Thoracic back pain Patient Disposition: Home, Self-Care Instructions: Back Pain (ED) Prescriptions: New oxycodone 5 mg tablet 5 mg PO BID PRN (Reason: pain) Qty: 7 0RF Rx Instructions: Partial Fill upon patient request. No Action diazepam [Valium] 10 mg tablet 10 mg PO TID PRN (Reason: muscle spasm) Qty: 15 0RF prednisone 20 mg tablet 60 mg PO DAILY 5 Days Qty: 15 0RF lidocaine [Lidoderm] 5 % adhesive patch,medicated 1 patch topical DAILY Qty: 15 0RF Rx Instructions: leave on most painful area for up to 12 hrs. May be substituted naproxen 500 mg tablet 500 mg PO BID PRN (Reason: pain) Qty: 15 0RF acetaminophen [Tylenol Extra Strength] 500 mg tablet 1,000 mg PO QID PRN (Reason: fever or pain) Qty: 14 0RF acetaminophen [Tylenol Extra Strength] 500 mg tablet 1,000 mg PO QID PRN (Reason: fever or pain) Qty: 14 0RF prednisone 50 mg tablet 50 mg PO DAILY 4 Days Qty: 4 0RF naproxen 500 mg tablet 500 mg PO BID PRN (Reason: pain) Qty: 15 0RF levofloxacin 500 mg tablet 500 mg PO DAILY Qty: 6 0RF Rx Instructions: start on 06/19 cyclobenzaprine 10 mg tablet 10 mg PO Q8H Qty: 20 0RF tramadol 50 mg tablet 50 mg PO Q6H PRN (Reason: pain) Qty: 20 0RF polyethylene glycol 3350 [Miralax] 17 gram/dose powder 17 g PO DAILY Qty: 510 0RF hydrocortisone acetate [Anusol-HC] 25 mg suppository 25 mg [place] BID Qty: 12 0RF Referrals: Greg Roberts MD, PhD [Physician] - Stand Alone Forms: Work/School Release Print Language: Armenian
[2024-05-22] MEDS: oxyCODONE HCl Immed Release 5 MG TABLET PO (23:05)
[2024-05-22 23:22] VITALS: BP 129/98; PULSE 94; RESP 20; TEMP 36.6; O2SAT 97
[2024-05-22 23:31] VITALS: BP 129/98; PULSE 94; RESP 20; TEMP 36.6; O2SAT 97
== END 2024-05-22 23:34 | disposition home or self-care (01) ==
PROVIDERS: Emergency Provider Emergency Medicine; PCP Internal Medicine
DX: M54.6 Pain in thoracic spine (principal); M54.50 Low back pain, unspecified
CPT/HCPCS: 72070; 72100; 99283; 99284

== ENCOUNTER 2024-05-30 14:07 | Outpatient (AMB) | payer MEDICAID, SELFPAY ==
--- NOTE | 2024-05-30 14:13 | A.SPINEOV_ITS ---
Intake Visit Reasons: low back pain Intake Note: Mr. Myron Cummings is here today for ED Fu c/o Low back pain would like a second opinion. [place] Required: No Allergies ibuprofen [From MOTRIN] Allergy (Intermediate, Verified 05/22/24 21:10) HX ULCER-CANNOT USE aspirin [ASPIRIN] Adverse Reaction (Mild, Verified 05/22/24 21:10) INVOLUNTARY SPASMS Assessment & Plan Assessment & Plan (1) Lumbar radiculopathy: Code(s): M54.16 - Radiculopathy, lumbar region Category: Medical Plan Dear Dr. Mccoy, Thank you for referring Gutierrez to our office today. He is a pleasant 38-year-old male who comes in today with a chief complaint of low back pain with some shooting pains into his left lower extremity. He was referred to our office by [facility] after seeking emergency services due to an exacerbation of his pain. He reports that these radicular pains are waxing/waning in nature in come and go as the days progress. If he has days where he is more active and doing more work he will feel like he has more pain in shooting pains the next day, but if he is relatively inactive and not doing much he feels he has little to no back pain, or radicular pain. When describing the radicular pain down his left lower extremity he runs his hand over his postero-lateral thigh, over his posterior lateral calf, and to the side & bottom of his foot. He states that this specific pain began back in 2020 without an inciting incident while he was at work. He has been plagued by it intermittently flaring up ever since. Of note he has been to physical therapy, and is currently in the middle of a course of physical therapy. He is followed by [facility] and has had cortisone injections with them in the lumbar spine in the past. PMH: Epilepsy, unspecified mental health disorders. Social hx: Patient does not smoke, reports no substance use Medications: Tylenol, cyclobenzaprine, Valium, keppra, hydrocortisone, naproxen, lidocaine patches, oxycodone, MiraLax, tramadol. Allergies: Ibuprofen, aspirin (both of these trigger epileptic seizures) Physical exam: The patient has 5/5 strength in his upper and lower extremities. He does elicit pain to full strength testing of his lower extremities but is still able to engage what I would rate 5/5. He is able to ambulate well without a significant antalgic gait. He reports no sensational deficits. His reflexes are absent in the right patella and 1+ hypoactive in the left patella. The rest of his reflexes are 2+ intact. (+) left-sided straight leg raise. (-) clonus. (-) Perez's. Imaging review: MRI of the lumbar spine completed at [facility] last month shows notable disc degeneration at L3-4 and L4-5. There is what I would call moderate central canal and bilateral foraminal stenosis at L3-4. There is also moderate central canal and moderate right-sided foraminal stenosis at L4-5. Most notably there is severe left-sided foraminal stenosis at L4-5 causing impingement on the left-sided L5 nerve root. Impression: Gutierrez is a pleasant 38-year-old male who comes in today with a chief complaint of low back pain with radiation in his left lower extremity. His pain has been waxing/waning in nature since 2020. He is tried several conserva tive measures, and is currently being followed by [facility]. I discussed potential interventions with Gutierrez, and it does not appear he has at the point life or he would want to/need to pursue surgical interventions for this specific issue. I advised him that once he has at the point where he can not stand this pain, and is with him more days than not, we can re-evaluate him in our office. Until then, I would recommend he pursue cortisone injections at the left-sided L5 nerve in an effort to mitigate the stenosis found there. I will refer the patient back to Dr. Ruggiero who should be able to facilitate this. Thank you for allowing us to care for your patient. The total time spent with this visit with this patient was 45 minutes reviewing history, physical exam, MRI imaging review, and implementation of treatment plan or further diagnostic testing Cristian Roberts MD,PhD [facility] Coding Level of Care Code New Pt Level 4 (18856) Diagnoses Lumbar radiculopathy M54.16
== END 2024-05-30 14:39 | disposition home or self-care (01) ==
PROVIDERS: PCP Internal Medicine; Visit Provider Physician Assistant
DX: M54.16 Radiculopathy, lumbar region (principal)
CPT/HCPCS: 99204

== ENCOUNTER → 2024-05-30 14:07 | Outpatient (BNVA) | payer MEDICAID, SELFPAY | PROVIDERS: PCP Internal Medicine; Visit Provider Physician Assistant | DX: M51.16 Intervertebral disc disorders with radiculopathy, lumbar region (principal); M48.061 Spinal stenosis, lumbar region without neurogenic claudication | CPT/HCPCS: 99212 ==

== ENCOUNTER 2024-07-25 08:00 | Outpatient (RCR) | payer MEDICAID, SELFPAY | END 2024-08-28 11:32 | disposition home or self-care (01) | LOC: HO.PT 08:00 | PROVIDERS: PCP Internal Medicine; Visit Provider Physical Medicine & Rehabilitation | DX: M51.16 Intervertebral disc disorders with radiculopathy, lumbar region (principal) | CPT/HCPCS: 97110; 97112; 97140; 97161; 97530; 97535 ==

== ENCOUNTER 2024-11-25 10:52 | Inpatient (IN) | payer MEDICAID, SELFPAY ==
--- NOTE | ~2024-11-25 | CT_ITS ---
CLINICAL HISTORY: fall, seizure CT cervical spine without intravenous contrast Comparison: CT/[place]/SR - CAT SCAN CERVICAL SPINE [id number] - 11/30/2018 03:10 PM EST Findings: Craniocervical junction: No occipital condylar fractures. No evidence of atlantooccipital dissociation. The anterior and posterior arch and lateral masses of C1 are intact. Odontoid and atlanto-dental interval intact. The pars interarticularis of C2 is intact. There is normal vertebral body heights with no evidence of compression fracture. The anterior inferior tip of C7 and the T1 vertebral body was not included in the field of view. Also there is subtle motion at the cervical thoracic junction There is normal cervical alignment. No locked or perched facets. No spinous process fractures. Lordotic curvature is straightened. The retropharyngeal soft tissues are not widened. Segmental analysis as below (MR is more accurate in the evaluation of disc herniation and central canal pathology): C2-C3: No herniation or stenosis. C3-C4: No herniation or stenosis. C4-C5: No herniation or stenosis. C5-C6: No herniation or stenosis. C6-C7: No herniation or stenosis. C7-T1: No herniation or stenosis. The bones are without evidence of lytic or blastic lesion. Impression: 1. Negative CT cervical spine for acute process. Suboptimal assessment of the cervical thoracic junction. This document has been electronically signed by: Elliot Pollack MD on 11/25/2024 12:56:12
--- NOTE | ~2024-11-25 | CT_ITS ---
CLINICAL HISTORY: jaw pain, seizure CT orbits and maxillofacial bones without contrast Comparison: None Findings: The globes are intact. No retrobulbar hematoma or post septal swelling is seen. No orbital fractures are present. No fractures of the frontal calvarium, thom [place] or cribriform plate. No facial fractures are identified. The zygomatic arches, pterygoid plates and hard palate are intact. The nasal bones and bridge are intact. The nasal septum is midline. Maxillary spine intact. Both temporomandibular joints are congruent. The mandible are intact. The paranasal sinuses are clear. No air-fluid levels. The ostiomeatal units and the infundibulum are patent. Impression: 1. No intraorbital injury or orbital fractures. 2. No fractures of the facial bones identified. This document has been electronically signed by: Elliot Pollack MD on 11/25/2024 13:13:17
--- NOTE | ~2024-11-25 | CT_ITS ---
CLINICAL HISTORY: seizure, fall CT head without IV contrast Comparison: CT - BRAIN WO IV CONTRAST 14424 - 05/13/2011 12:10 AM EDT Findings: The ventricles are normal in configuration. Basilar cisterns intact. No intracranial hemorrhage, mass-effect or midline shift. No extra-axial fluid collections. Suspect beam hardening artifact causing hypoattenuation posterior calvarium. Adan-white matter junction preserved. No evidence of acute large vessel or territorial ischemia. Brainstem and cerebellum unremarkable. The calvarium is intact. The imaged portion of the paranasal sinuses are clear. No mastoid effusions. The orbital contents are unremarkable. Impression: 1. No intra or extra-axial hemorrhage. Suspect beam hardening artifact rather than true hypoattenuation posterior calvarium noncontrast MRI would be confirmatory This document has been electronically signed by: Elliot Pollack MD on 11/25/2024 13:07:22
[2024-11-25 10:59] VITALS: BP 140/94; PULSE 86; O2SAT 98
[2024-11-25 11:14] VITALS: BP 125/89; PULSE 78; RESP 17; TEMP 37.6; O2SAT 98; BMI 39.3
[2024-11-25 11:25] LABS: Glucose, Whole Blood 133 mg/dL (60-115)
[2024-11-25 11:28] LABS: MANUAL DIFF FLAG NO
[2024-11-25 11:31] LABS: Basophils Absolute Auto 0.1 X10*3/uL (0.0-0.2); Basophils Percent Auto 0.4 % (0-2); Eosinophils Percent Auto 0.1 % (0-4); Hematocrit 49.3 % (42.0-52.0); Hemoglobin 16.9 g/dl (14.0-18.0); Imm Gran Abs Auto 0.03 X10*3/uL (0.00-0.03); Imm Gran Pct Auto 0.2 % (0.0-0.4); Lymphocytes Absolute Auto 2.1 X10*3/uL (1.2-4.9); Lymphocytes Percent Auto 15.1 % (20-40); Mean Corpuscular HGB Conc 34.3 g/dl (31.0-36.0); Mean Corpuscular Hemoglobin 28.9 pg (27.0-33.0); Mean Corpuscular Volume 84.4 fL (80.0-98.0); Mean Platelet Volume 10.7 fL (9.4-12.4); Monocytes Percent Auto 6.8 % (2-11); Neutrophils Absolute Auto 10.8 x10*3/uL (2.0-8.3); Neutrophils Percent Auto 77.4 % (45-73); Platelet Count 220 X10*3/uL (160-400); Red Blood Count 5.84 X10*6/uL (4.60-5.80); Red Cell Distribution Width 12.8 % (11.0-16.0)
[2024-11-25] MEDS: LORazepam 2 MG/ML VIAL IVPUSH (11:39)
[2024-11-25 11:55] LABS: Alanine Aminotransferase 73 U/L (0-40); Albumin Level 4.5 g/dL (3.5-5.0); Alkaline Phosphatase 92 U/L (39-117); Anion Gap 15 (12-20); Aspartate Amino Transferase 61 U/L (5-37); Bilirubin Total 0.7 mg/dL (0.0-1.0); Blood Urea Nitrogen 9 mg/dL (9-16); Calcium 9.8 mg/dL (8.4-10.2); Carbon Dioxide 23 mmol/L (22-29); Chloride 109 mmol/L (96-108); Estimated Glomerular Filt Rate 59; Glucose Random 112 mg/dL (60-115); Potassium 4.2 mmol/L (3.3-5.1); Sodium 143 mmol/L (135-145); Total Protein 8.4 g/dL (6.5-8.0)
--- NOTE | 2024-11-25 12:05 | ED_ITS ---
HPI - Seizure General Chief Complaint: Seizure Stated Complaint: R FACE PAIN/NUMB S/P SZ LAST NIGHT PER EMS Time Seen by Provider: 11/25/24 11:28 Source: patient and RN notes reviewed Mode of arrival: ambulatory Limitations: no limitations History of Present Illness ED Provider: Jannet Hernandez PA-C HPI Narrative: This is a 38-year-old male, with a history of seizure disorder previously on Keppra however has not taken over the last 6 months due to affordability, presents emergency department with concerns for 2 seizures last night. Patient states that he had a seizure which he believes occurred at 2:30 a.m.. He states that he went to bed, and felt as though he was having pre seizure-like aura activity, which was at 2:30 a.m.. He states that he woke up at around 4:00 a.m. he is unsure how long he was seizing however states that he believes that it was approximately an hour. He states that he lost control his bowels and bladder. He states that he awoke and his tongue his painful and swollen, as well as feels as though he is unable to open and close his jaw. He states that his jaw has been in significant pain. He states that he is unable to fully open and close his jaw secondary to the pain. He denies any shortness of breath. No chest pain. He reports painful to swallow. He states that he has been without his Keppra as he has been unable to afford this. He states that prior to this morning seizure, he did have a seizure yesterday as well, otherwise has not had a seizure since May 2024. He was in his usual state of health yesterday, no recent illness. MD complaint: seizure Onset (ago): hour(s) Description of Episode: loss of consciousness and bladder incontinence Witnessed: No Seizure History: Yes Possible Precipitating Event: medication Treatments prior to arrival: none Related Data Home Medications ?Medication ?Instructions ?Recorded ?Confirmed [id number]-[id number]-pconkiod 250 2 tab PO Q6H PRN Migraine Headache 11/25/24 11/25/24 mg-250 mg-65 mg tablet (Excedrin Migraine) Allergies Allergy/AdvReac Type Severity Reaction Status Date / Time ibuprofen [From MOTRIN] Allergy Intermediate HX Verified 11/25/24 11:17 ULCER-CANNOT USE aspirin [ASPIRIN] AdvReac Mild INVOLUNTARY Verified 11/25/24 11:17 SPASMS Review of Systems 2 Review of Systems: Yes all other systems are reviewed and are negative Constitutional: Constitutional: Reports as per [facility] Past Medical History Medical History Bleeding ulcer Epilepsy Social History Social History Household Members: None Household Members Other:: Just my dog Housing: Apartment Do you presently have visiting nurse or other home services: No Unable to assess alcohol history related to: Unknown Alcohol intake: never Comment: siderails padded Patient Tobacco Use Status: Current everyday Tobacco user Tobacco use type: Cigarette Cigarettes Per Day: 2 Years Smoked: no Second Hand Smoke Exposure: No Substance Use Type: Marijuana service: No Physical Exam 2 Vital Signs: Vital Signs: Last Vital Signs Temp 98.4 F 11/26/24 07:07 Pulse 68 11/26/24 07:07 Resp 16 11/26/24 07:07 BP 125/74 11/26/24 07:07 Pulse Ox 96 11/26/24 07:07 O2 Del Method Room Air 11/26/24 07:07 BMI result Body Mass Index 39.3 Const: General: cooperative, comfortable and no acute distress O rientation/consciousness: patient oriented x3 Limitations: no limitations HEENT: Other: Patient with clenched jaw, able to swallow however drool pulling up into mouth. Right lateral tongue with hematoma noted, tenderness palpation in this region. Able to laterally move jaw. Jaw does not appear to be displaced. Head: Yes normal to inspection, Yes normocephalic and Yes atraumatic E ars: hearing grossly normal bilaterally and TM's normal bilaterally General nose exam: Normal external nose present Face and sinus: Yes normal facial exam Mouth: Normal oral and palatal mucosa present, oropharynx normal and moist mucous membranes Throat: Yes posterior oropharynx normal Eyes: General: appearance normal, both eyes and all related structures E yelids: Yes eyelids normal Conjunctivae: conjunctivae normal Sclerae: s clerae normal Pupils: Equal, round and reactive pupils present EOM: EOMs intact bilaterally Neck: Other: No midline C-spine tenderness on examination. Neck: Yes normal visual inspection, Yes full ROM and Yes no lymphadenopathy Lymphatic: no lymphadenopathy noted Chest: Chest palpation & inspection: normal inspection of the chest Resp: Effort & Inspection: normal respiratory effort and able to speak in complete sentences Auscultation: clear to auscultation bilaterally, no crackles, no rales, no rhonchi and no wheezes Cardio: Rate: regular rate Rhythm: regular rhythm Heart sounds: S1 normal heart sound present and S2 normal heart sound present GI: Inspection: Yes normal to inspection Skin: General skin exam: no rashes or lesions noted Trauma: no lacerations or abrasions Wounds: no wounds Neuro: General: patient oriented x3 and moves all extremities Cranial nerves: Yes Equal, round and reactive pupils present Extrem: General: Yes normal to inspection Right upper extremity: normal to inspection Left upper extremity: normal to inspection Right lower extremity: normal to inspection Left lower extremity: normal to inspection Course Reevaluation(s) Reevaluation #1: Patient with an elevated white blood cell count at 14 likely reactive secondary to seizure. Chemistry with no evidence of KIYA, CPK 2604. Urine unremarkable for any signs of infection. Patient continues to be symptomatic with locked jaw, patient medicated with Tylenol, Valium, and loaded with Keppra 1000 mg IV. Time: 15:46 Reevaluation #2: CT face, head, C-spine, revealed no acute abnormalities. Patient feeling slightly improved after receiving fluids, Valium, and Keppra as well as Tylenol. Given rhabdomylosis, as well as acute seizure, patient needs to be admitted for further management and observation. Discussed with my attending physician, Dr. Cui who is in agreement. Discussed with hospitalist, transfer of care initiated. Time: 15:47 Medications Administered Generic Name Dose Route Start Last Admin Trade Name Freq PRN Reason Stop Dose Admin Sodium Chloride 1,000 mls @ 125 mls/hr 11/25/24 16:30 11/26/24 02:26 Ns IVCONT 125 mls/hr .Q8H CASEY Administration Levetiracetam 1,000 mg in 100 mls @ 400 mls/hr 11/25/24 21:00 11/26/24 09:04 Keppra IV 100 mls/hr Q12H CASEY Administration Sodium Chloride 3 ml 11/26/24 00:00 11/26/24 09:02 0.9 % Sodium Chloride Flush 3 Ml Syringe IVFLUSH 3 ml QSHIFT CASEY Administration Discontinued Medications Generic Name Dose Route Start Last Admin Trade Name Alex PRN Reason Stop Dose Admin Diazepam 5 mg 11/25/24 14:02 11/25/24 14:13 Diazepam 10 Mg/2 Ml Cartridge IVPUSH 11/25/24 14:03 5 mg STAT ONE Administration Sodium Chloride 2,000 mls @ 999 mls/hr 11/25/24 12:30 11/25/24 17:40 Ns IV 11/25/24 13:30 Infused .Q2H1M CASEY Infusion Levetiracetam 1,000 mg in 100 mls @ 400 mls/hr 11/25/24 13:59 11/25/24 15:12 Keppra IV 11/25/24 14:13 Infused ONCE ONE Infusion Acetaminophen 1,000 mg in 100 mls @ 400 mls/hr 11/25/24 14:02 11/25/24 15:11 Ofirmev IV 11/25/24 14:16 Infused ONCE ONE Infusion Lorazepam 2 mg 11/25/24 11:28 11/25/24 11:39 Lorazepam 2 Mg/Ml Vial IVPUSH 11/25/24 11:29 2 mg ONCE ONE Administration Medical Decision Making Medical Decision Making [facility] Narrative: This is a 38-year-old male, with a history of epilepsy previously on Keppra, who presents emergency department due to seizure early this morning. On arrival, patient arrives with jaw clenched shut, able to speak however drooling pooling corners of mouth. He states that he had a seizure early this morning. He believes that he was seizing for approximately 1 hour. He awoke, in his feces and urine. He reports he had a seizure yesterday as well. He has been without his Keppra for approximately 5 months due to not being able to afford this medication. Patient was evaluated by my attending physician, Dr. Cui. Plan: Labs, EKG, CT head, face, C-spine, Ativan 2 mg IV Differential Diagnosis Differential Diagnoses: The differential diagnosis associated with the presentation includes Status epilepticus, jaw dislocation, seizure disorder, rhabdomyolysis Admission/Observation Consideration of admission/observation: Escalation of care including admission/observation considered Lab Data [facility] Lab Attestation statement: I reviewed the patient's lab results. Slight leukocytosis noted at 14k - likely reactive, creatine 1.35, BUN 9; no evidence of KIYA. CPK eleated at 2604; slight transaminitis - however similar to previous. 11/25/24 11:25 11/26/24 05:16 Labs: Lab Results 11/25/24 11/25/24 Range/Units 11:21 11:25 WBC 14.0 H (4.8-10.8) X10*3/uL RBC 5.84 H (4.60-5.80) X10*6/uL Hgb 16.9 (14.0-18.0) g/dl Hct 49.3 (42.0-52.0) % MCV 84.4 (80.0-98.0) fL MCH 28.9 (27.0-33.0) pg MCHC 34.3 (31.0-36.0) g/dl RDW 12.8 (11.0-16.0) % Plt Count 220 (160-400) X10*3/uL MPV 10.7 (9.4-12.4) fL Immature Gran % (Auto) 0.2 (0.0-0.4) % Neut % (Auto) 77.4 H (45-73) % Lymph % (Auto) 15.1 L (20-40) % [place] % (Auto) 6.8 (2-11) % Eos % (Auto) 0.1 (0-4) % Baso % (Auto) 0.4 (0-2) % Lymph # (Auto) 2.1 (1.2-4.9) X10*3/uL [place] # (Auto) 1.0 (0.1-1.2) X10*3/uL Eos # (Auto) 0.0 (0.0-0.4) X10*3/uL Baso # (Auto) 0.1 (0.0-0.2) X10*3/uL Abs Immat Gran (auto) 0.03 (0.00-0.03) X10*3/uL Absolute Neuts (auto) 10.8 H (2.0-8.3) x10*3/uL Absolute Nucleated RBC 0.000 (0.0-0.012) X10*3/uL Nucleated RBC % (auto) 0.0 (0.0-0.2) /100WBC Sodium 143 (135-145) mmol/L Potassium 4.2 (3.3-5.1) mmol/L Chloride 109 H (96-108) mmol/L Carbon Dioxide 23 (22-29) mmol/L Anion Gap 15 (12-20) BUN 9 (9-16) mg/dL Creatinine 1.35 (0.5-1.4) mg/dL Estim Creat Clear Calc 102.0 Estimated GFR 59 POC Glucose 133 H (60-115) mg/dL Random Glucose 112 (60-115) mg/dL Calcium 9.8 (8.4-10.2) mg/dL Total Bilirubin 0.7 (0.0-1.0) mg/dL AST 61 H (5-37) U/L ALT 73 H (0-40) U/L Alkaline Phosphatase 92 (39-117) U/L Total Creatine Kinase 2604 H (38-174) U/L Total Protein 8.4 H (6.5-8.0) g/dL Albumin 4.5 (3.5-5.0) g/dL Ethyl Alcohol < 10 mg/dL Radiology Impression Discussion of test interpretation with radiology: I have reviewed the radiologist's reading. Radiologist Impression: [place] [address] CT Scan Report Signed Patient: Gutierrez Ferris MR#: [id number] : 1985 Acct:[id number] Age/Sex: 38 / M ADM Date: 11/25/24 Loc: .ED Attending Dr: Ordering Physician: Jannet Hernandez Date of Service: 11/25/24 Procedure(s): CT facial bones wo IV con Accession Number(s): [id number] cc: [facility]; Jannet Hernandez~ Report Number: [id number]: Total DLP = 1049.00 mGy-cm CLINICAL HISTORY: jaw pain, seizure CT orbits and maxillofacial bones without contrast Comparison: None Findings: The globes are intact. No retrobulbar hematoma or post septal swelling is seen. No orbital fractures are present. No fractures of the frontal calvarium, thom [place] or cribriform plate. No facial fractures are identified. The zygomatic arches, pterygoid plates and hard palate are intact. The nasal bones and bridge are intact. The nasal septum is midline. Maxillary spine intact. Both temporomandibular joints are congruent. The mandible are intact. The paranasal sinuses are clear. No air-fluid levels. The ostiomeatal units and the infundibulum are patent. Impression: 1. No intraorbital injury or orbital fractures. 2. No fractures of the facial bones identified. This document has been electronically signed by: Elliot Pollack MD on 11/25/2024 13:13:17 Dictated By: Elliot Pollack MD [place] [address] CT Scan Report Signed Patient: Gutierrez Ferris MR#: [id number] : 1985 Acct:[id number] Age/Sex: 38 / M ADM Date: 11/25/24 Loc: HO.ED Attending Dr: Ordering Physician: Jannet Hernandez Date of Service: 11/25/24 Procedure(s): CT head/brain wo IV con Accession Number(s): [id number] cc: [facility]; Jannet Hernandez~ Report Number: [id number]: Total DLP = 907.00 mGy-cm CLINICAL HISTORY: seizure, fall CT head without IV contrast Comparison: CT - BRAIN WO IV CONTRAST [id number] - 05/13/2011 12:10 AM EDT Findings: The ventricles are normal in configuration. Basilar cisterns intact. No intracranial hemorrhage, mass-effect or midline shift. No extra-axial fluid collections. Suspect beam hardening artifact causing hypoattenuation posterior calvarium. Adan-white matter junction preserved. No evidence of acute large vessel or territorial ischemia. Brainstem and cerebellum unremarkable. The calvarium is intact. The imaged portion of the paranasal sinuses are clear. No mastoid effusions. The orbital contents are unremarkable. Impression: 1. No intra or extra-axial hemorrhage. Suspect beam hardening artifact rather than true hypoattenuation posterior calvarium noncontrast MRI would be confirmatory This document has been electronically signed by: Elliot Pollack MD on 11/25/2024 13:07:22 Dictated By: Elliot Pollack MD Signed By: <Electronically signed [address] [address] [address] Scan Report Signed Patient: Gutierrez Ferris MR#: [id number] : 1985 Acct:[id number] Age/Sex: 38 / M ADM Date: 11/25/24 Loc: HO.ED Attending Dr: Ordering Physician: Jannet Hernandez Date of Service: 11/25/24 Procedure(s): CT cervical spine wo IV con Accession Number(s): [id number] cc: [facility]; Jannet Hernandez~ Report Number: [id number]: Total DLP = 712.00 mGy-cm CLINICAL HISTORY: fall, seizure CT cervical spine without intravenous contrast Comparison: CT/[place]/SR - CAT SCAN CERVICAL SPINE [id number] - 11/30/2018 03:10 PM EST Findings: Craniocervical junction: No occipital condylar fractures. No evidence of atlantooccipital dissociation. The anterior and posterior arch and lateral masses of C1 are intact. Odontoid and atlanto-dental interval intact. The pars interarticularis of C2 is intact. There is normal vertebral body heights with no evidence of compression fracture. The anterior inferior tip of C7 and the T1 vertebral body was not included in the field of view. Also there is subtle motion at the cervical thoracic junction There is normal cervical alignment. No locked or perched facets. No spinous process fractures. Lordotic curvature is straightened. The retropharyngeal soft tissues are not widened. Segmental analysis as below (MR is more accurate in the evaluation of disc herniation and central canal pathology): C2-C3: No herniation or stenosis. C3-C4: No herniation or stenosis. C4-C5: No herniation or stenosis. C5-C6: No herniation or stenosis. C6-C7: No herniation or stenosis. C7-T1: No herniation or stenosis. The bones are without evidence of lytic or blastic lesion. Impression: 1. Negative CT cervical spine for acute process. Suboptimal assessment of the cervical thoracic junction. This document has been electronically signed by: Elliot Pollack MD on 11/25/2024 12:56:12 Dictated By: Elliot Pollack MD Chronic Conditions Patient?s care impacted by: Other (seizure disorder) Critical Care Time Critical Care Time Critical Care Time: Yes Total Critical Care Time: 35 Attestation: I have personally provided critical care time exclusive of time spent on separately billable procedures. Time includes review of lab data, radiology results, discussion with consultants, and monitoring for potential decompensation. Intervention performed as documented. Discharge Plan Discharge Clinical Impression: Seizure, Rhabdomyolysis Patient Disposition: Admitted As Inpatient Interventions: Admission Worksheet (ED) Last Done: 11/25/24 16:42 Discharge Date/Time: 11/25/24 20:40
[2024-11-25 12:20] LABS: Ethanol < 10 mg/dL
[2024-11-25] MEDS: 0.9 % Sodium Chloride 2,000 ML 999 ML IV (12:49)
[2024-11-25] MEDS: diazePAM 10 MG/2 ML CARTRIDGE 5 MG IVPUSH (14:13)
[2024-11-25] MEDS: Acetaminophen 1,000 MG/100 ML PIGGYBACK 400 MG IV (14:13)
[2024-11-25] MEDS: levETIRAcetam in NaCl (iso-os) 1,000 MG/100 ML PIGGYBACK 400 MG IV ×2 (14:13→21:31)
--- NOTE | 2024-11-25 15:15 | PC.NURSE ---
patient feels some relief to jaw after valium. Patient requests some water to trial to drink MD cao'ed.
--- NOTE | 2024-11-25 16:33 | P.HPHOSP_ITS ---
History of Present Illness Date of Service: 11/25/24 Chief Complaint: Breakthrough seizure A 38 years old male with PMH of seizure disorder who presents to the hospital with breakthrough seizures. The patient reports having 2 seizures since yesterday. He has been off his medication (Keppra) since May because he can not afford it. reports he was watching an Anime movie and he thinks that was the reason to have the first seizure around 2:30 am. This morning he had a 2nd seizure after 4 am and bit his tounge. He was not sure how long was the seizure or recovery from it. He lost control over his bladder and bowels and felt his jaw was locked and in significant pain. No chest pain, palpitations, SOB, nausea, vomiting, diarrhea or urinary symptoms. In ED he was loaded with IV Keppra and Ativan. blood work showed elevated CK level. Admitted for further monitoring and treatment. [facility] Medical History Bleeding ulcer Epilepsy Social History Unable to assess alcohol history related to: Unknown Alcohol intake: never Patient Tobacco Use Status: Current everyday Tobacco user Substance Use Type: Marijuana Advance Directives: No Advance Directives Information Provided: No Do you have a plan to hurt others: No Plan Meds Allergies Allergy/AdvReac Type Severity Reaction Status Date / Time ibuprofen [From MOTRIN] Allergy Intermediate HX Verified 11/25/24 11:17 ULCER-CANNOT USE aspirin [ASPIRIN] AdvReac Mild INVOLUNTARY Verified 11/25/24 11:17 SPASMS Active Medications: Current Medications Acetaminophen (Acetaminophen 325 Mg Tablet) 650 mg PO Q6H PRN PRN Reason: Pain, Mild 1-3,fever,headache Calcium Carbonate (Calcium Carbonate 750 Mg Tab.Chew) 750 mg PO Q4H PRN PRN Reason: Heartburn Sodium Chloride (Ns) 1,000 mls @ 125 mls/hr IVCONT .Q8H CASEY Levetiracetam (Keppra) 1,000 mg in 100 mls @ 400 mls/hr IV Q12H CASEY Lorazepam (Lorazepam 2 Mg/Ml Vial) 2 mg IVPUSH ONCE PRN PRN Reason: Seizure Magnesium Hydroxide (Milk Of Magnesia 30 Ml Oral.Susp) 30 ml PO DAILY PRN PRN Reason: Constipation Melatonin (Melatonin 3 Mg Tablet) 6 mg PO BEDTIME PRN PRN Reason: Insomnia Ondansetron HCl (Ondansetron Hcl 4 Mg/2 Ml Vial) 4 mg IVPUSH Q8H PRN PRN Reason: Nausea and Vomiting Sodium Chloride (0.9 % Sodium Chloride Flush 3 Ml Syringe) [facility] Medications ?Medication ?Instructions ?Recorded ?Confirmed ?Last Taken ?Type levetiracetam 500 mg 1,500 mg PO BID 11/25/24 Unknown History tablet,extended release 24 hr Physical Exam 2 Vital Signs and Narrative: Vital Signs: Last Vital Signs Temp 99.6 F 11/25/24 11:14 Pulse 78 11/25/24 11:14 Resp 17 11/25/24 11:14 BP 125/89 11/25/24 11:14 Pulse Ox 98 11/25/24 11:14 O2 Del Method Room Air 11/25/24 11:14 BMI result Body Mass Index 39.3 Const: Other: Constitutional : Awake, interactive, not in distress Neck : Normal inspection, Supple, tongue swollen with hematoma and difficulties speaking Cardiovascular : RRR, no JVP, no lower extremity edema Respiratory : good bilateral air entry, no crackles, wheezes or rhonchi Gastrointestinal: soft, lax, Normal bowel sounds, Non tender Skin : Warm, Dry Neurological : Alert & oriented x3, No focal deficit , CN 2-12 within normal Results Labs 11/25/24 11:25 11/25/24 11:25 Labs: Laboratory Results - last 24 hr 11/25/24 11/25/24 11:21 11:25 MCV 84.4 MCH 28.9 MCHC 34.3 RDW 12.8 Plt Count 220 MPV 10.7 Immature Gran % (Auto) 0.2 Neut % (Auto) 77.4 H Lymph % (Auto) 15.1 L [place] % (Auto) 6.8 Eos % (Auto) 0.1 Baso % (Auto) 0.4 Lymph # (Auto) 2.1 [place] # (Auto) 1.0 Eos # (Auto) 0.0 Baso # (Auto) 0.1 Abs Immat Gran (auto) 0.03 Absolute Neuts (auto) 10.8 H Absolute Nucleated RBC 0.000 Nucleated RBC % (auto) 0.0 Anion Gap 15 Estim Creat Clear Calc 102.0 Estimated GFR 59 POC Glucose 133 H Random Glucose 112 Calcium 9.8 Total Bilirubin 0.7 AST 61 H ALT 73 H Alkaline Phosphatase 92 Total Creatine Kinase 2604 H Total Protein 8.4 H Albumin 4.5 Ethyl Alcohol < 10 Assessment and Plan (1) Rhabdomyolysis: Status: Acute (2) Seizure: Status: Acute Plan A 76 years old male with PMH of COPD on 2L , BPH, DM2, HTN, CAD among others 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 breakthrough seizures Load with Keppra PRN Ativan for seizure seizure precatuins CW consult for insurance coverage Acute Rhabdomyolysis CK elevated >2000 no kidney injury IVF trend CK Transaminitis, Leukocytosis likely reactive from Rhabdo monitor DVT PPx SCDs w hx of bleeding ulcer The patient will likely need 2 overnight hospital stay for kidney monitoring and seizure control Quality Stroke Does the patient have a stroke diagnosis?: No VTE Prior VTE?: No VTE Risk Level:: Medical - moderate - high VTE Device Contraindication: N/A - Device Ordered VTE Drug Contraindication: Treatment Not Indicated
[2024-11-25 16:39] VITALS: BP 121/73; PULSE 75; RESP 14; TEMP 36.6; O2SAT 96
--- NOTE | 2024-11-25 17:22 | PHA.MEDREC ---
Addendum entered by Cesia Chambers RPh 11/25/24 18:17: reviewed by [facility]. Original Note: Pharmacy Consult ? Medication Reconciliation Pharmacy has completed the medication reconciliation. Spoke to pt to confirm meds. Per pt, was taking keppra 1500 mg BID, but has not taken in 6 months due to financial issues regarding prescription. Leaving off med rec since patient has not taken in several months.
[2024-11-25] MEDS: 0.9 % Sodium Chloride 1,000 ML 125 ML IVCONT (17:35)
[2024-11-25 20:53] VITALS: BMI 38.5
[2024-11-25 21:07] VITALS: BP 114/74; PULSE 73; RESP 16; TEMP 36.7; O2SAT 96
--- NOTE | 2024-11-25 22:36 | PC.NURSE ---
Patient on high fall risk precautions, seizure precautions, bedrails padded, suction set up at bedside. Patient refusing telesitter camera . Patient educated about high fall risk precautions.
[2024-11-26] MEDS: 0.9 % Sodium Chloride Flush 3 ML SYRINGE IVFLUSH ×3 (00:07→15:26)
[2024-11-26 00:09] VITALS: BP 109/62; PULSE 76; RESP 18; TEMP 36.4; O2SAT 96
[2024-11-26] MEDS: 0.9 % Sodium Chloride 1,000 ML 125 ML IVCONT ×3 (02:26→18:22)
[2024-11-26 02:58] VITALS: BP 111/67; PULSE 72; RESP 18; TEMP 36.6; O2SAT 97
[2024-11-26 07:07] VITALS: BP 125/74; PULSE 68; RESP 16; TEMP 36.9; O2SAT 96
[2024-11-26 07:16] LABS: Alanine Aminotransferase 62 U/L (0-40); Albumin Level 3.8 g/dL (3.5-5.0); Alkaline Phosphatase 76 U/L (39-117); Anion Gap 12 (12-20); Aspartate Amino Transferase 73 U/L (5-37); Bilirubin Direct 0.2 mg/dL (0.0-0.5); Bilirubin Total 0.9 mg/dL (0.0-1.0); Blood Urea Nitrogen 11 mg/dL (9-16); Calcium 8.5 mg/dL (8.4-10.2); Carbon Dioxide 24 mmol/L (22-29); Chloride 112 mmol/L (96-108); Creatinine Clr Calc Pharmacy 120.5; Estimated Glomerular Filt Rate > 60; Glucose Random 99 mg/dL (60-115); Potassium 4.1 mmol/L (3.3-5.1); Sodium 144 mmol/L (135-145)
[2024-11-26] MEDS: levETIRAcetam in NaCl (iso-os) 1,000 MG/100 ML PIGGYBACK 100 MG IV (09:04)
--- NOTE | 2024-11-26 10:18 | MHC.CM.PN ---
pt lives alone is indepedent has own ride home dc plan hoime no services
--- NOTE | 2024-11-26 10:23 | MHC.CM.PN ---
PT LIVES ALONE HAS SERVICES THRU [facility] PT ALSO [facility] PT HAS OWN RIDE HOME DC PLAN HOME NO SERVICES
--- NOTE | 2024-11-26 12:11 | HO.PM.IMPN ---
Subjective Subjective Date of Service: 11/26/24 Interval History: seen and evaluated feels better no more seizure overnight CK still at 2500 Review of Systems Review of Systems: Yes all other systems are reviewed and are negative Physical Exam Vital Signs: Vital Signs: Last Vital Signs Temp 98.4 F 11/26/24 07:07 Pulse 68 11/26/24 07:07 Resp 16 11/26/24 07:07 BP 125/74 11/26/24 07:07 Pulse Ox 96 11/26/24 07:07 O2 Del Method Room Air 11/26/24 07:07 BMI result Body Mass Index 38.5 Const: Other: Constitutional : Awake, interactive, not in distress Neck : Normal inspection, Supple, tongue less swollen with hematoma Cardiovascular : RRR, no JVP, no lower extremity edema Respiratory : good bilateral air entry, no crackles, wheezes or rhonchi Gastrointestinal: soft, lax, Normal bowel sounds, Non tender Skin : Warm, Dry Neurological : Alert & oriented x3, No focal deficit , CN 2-12 within normal Objective Data Active Medications Acetaminophen (Acetaminophen 325 Mg Tablet) 650 mg PO Q6H PRN PRN Reason: Pain, Mild 1-3,fever,headache Calcium Carbonate (Calcium Carbonate 750 Mg Tab.Chew) 750 mg PO Q4H PRN PRN Reason: Heartburn Sodium Chloride (Ns) 1,000 mls @ 125 mls/hr IVCONT .Q8H [facility] Last Admin: 11/26/24 10:39 Dose: 125 mls/hr Documented By: EILEEN Levetiracetam (Levetiracetam 500 Mg Tablet) 1,500 mg PO BID [facility] Lorazepam (Lorazepam 2 Mg/Ml Vial) 2 mg IVPUSH ONCE PRN PRN Reason: Seizure Magnesium Hydroxide (Milk Of Magnesia 30 Ml Oral.Susp) 30 ml PO DAILY PRN PRN Reason: Constipation Melatonin (Melatonin 3 Mg Tablet) 6 mg PO BEDTIME PRN PRN Reason: Insomnia Ondansetron HCl (Ondansetron Hcl 4 Mg/2 Ml Vial) 4 mg IVPUSH Q8H PRN PRN Reason: Nausea and Vomiting Sodium Chloride (0.9 % Sodium Chloride Flush 3 Ml Syringe) 3 ml IVFLUSH QSHIFT [facility] Last Admin: 11/26/24 09:02 Dose: 3 ml Documented By: HO.WILLETA Labs 11/25/24 11:25 11/26/24 05:16 Labs: Laboratory Results - last 24 hr 11/25/24 11/25/24 11/26/24 11:21 11:25 05:16 Hold Purple Top SEE NOTE Anion Gap 12 Estim Creat Clear Calc 120.5 Estimated GFR > 60 POC Glucose 133 H Random Glucose 99 Calcium 8.5 D Total Bilirubin 0.9 Direct Bilirubin 0.2 AST 73 H ALT 62 H Alkaline Phosphatase 76 Total Creatine Kinase 2604 H 2514 H Total Protein 7.0 Albumin 3.8 Ethyl Alcohol < 10 Assessment and Plan (1) Rhabdomyolysis: Status: Acute (2) Seizure: Status: Acute Plan A 76 years old male with PMH of COPD on 2L , BPH, DM2, HTN, CAD among others 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 Load with Keppra IV, change to PO 1500 bid PRN Ativan for seizure seizure precatuins CW consult for insurance coverage Acute Rhabdomyolysis CK elevated >2400 no kidney injury IVF trend CK Transaminitis, Leukocytosis likely reactive from Rhabdo monitor DVT PPx SCDs w hx of bleeding ulcer The patient will likely need overnight hospital stay for kidney monitoring and seizure control Quality Stroke Does the patient have a stroke diagnosis?: No VTE Prior VTE?: No VTE Risk Level:: Medical - moderate - high VTE Device Contraindication: N/A - Device Ordered VTE Drug Contraindication: Treatment Not Indicated
[2024-11-26] MEDS: Acetaminophen 325 MG TABLET 650 MG PO (14:21)
[2024-11-26 15:37] VITALS: BP 131/77; PULSE 68; RESP 18; TEMP 37.3; O2SAT 97
[2024-11-26 19:32] VITALS: BP 119/70; PULSE 71; RESP 18; TEMP 37.2; O2SAT 98
[2024-11-26] MEDS: levETIRAcetam 500 MG TABLET 1500 MG PO (20:49)
[2024-11-27] MEDS: 0.9 % Sodium Chloride 1,000 ML 125 ML IVCONT ×2 (01:16→09:31)
[2024-11-27 03:24] VITALS: BP 115/66; PULSE 78; RESP 16; TEMP 37; O2SAT 97
[2024-11-27 05:52] LABS: Anion Gap 11 (12-20); Blood Urea Nitrogen 9 mg/dL (9-16); Carbon Dioxide 27 mmol/L (22-29); Chloride 109 mmol/L (96-108); Creatinine Clr Calc Pharmacy 134.9; Estimated Glomerular Filt Rate > 60; Glucose Random 99 mg/dL (60-115); Potassium 4.4 mmol/L (3.3-5.1); Sodium 143 mmol/L (135-145)
[2024-11-27 07:06] VITALS: BP 125/82; PULSE 75; RESP 16; TEMP 37.3; O2SAT 98
[2024-11-27] MEDS: levETIRAcetam 500 MG TABLET 1500 MG PO (09:25)
--- NOTE | 2024-11-27 11:18 | P.DS_ITS ---
DS: Providers Provider Date of Service: 11/27/24 Date of admission: 11/25/24 16:18 Date of discharge: 11/27/24 Primary care physician: Maggie Pleitez MD DS: Diagnosis Discharge Diagnosis (1) Rhabdomyolysis: Status: Acute (2) Seizure: Status: Acute DS: Summary Hospital Course Hospital Course: Admission note HPI A 38 years old male with PMH of seizure disorder who presents to the hospital with breakthrough seizures. The patient reports having 2 seizures since yesterday. He has been off his medication (Keppra) since May because he can not afford it. reports he was watching an Anime movie and he thinks that was the reason to have the first seizure around 2:30 am. This morning he had a 2nd seizure after 4 am and bit his tounge. He was not sure how long was the seizure or recovery from it. He lost control over his bladder and bowels and felt his jaw was locked and in significant pain. No chest pain, palpitations, SOB, nausea, vomiting, diarrhea or urinary symptoms. In ED he was loaded with IV Keppra and Ativan. blood work showed elevated CK level. Admitted for further monitoring and treatment. Hospital course The patient was admitted for evlauation for acute breakthrough seizures as he was not taking his medications for 6 months because he was unable to pay to copayment. Loaded with Keppra IV, change to PO 1500 bid with good tolerance as no recurrence of seizure. he bit his tongue and has small hematoma that has improved. The Keppra was provided for him for 3 months supply upon discharge. He was advised not to drive or run heavy machinery for 6 months and to follow up with his PCP. He was noted to be in Acute Rhabdomyolysis with CK elevated >2400 and no kidney injury treated with IV fluids with good response. He was also noted to have Transaminitis, Leukocytosis which are likely reactive from Rhabdo and seizure activity. improved as they were monitored. Discharge plan Start Keppra 1500 mg two times a day avoid alcohol Keep yourself well hydrated You need to be 6 months without any seizure before driving or running heavy machinery Time Attestation Discharge Coordination Time (in mins): 37 Quality: Safe Use of Opioids Does Pt have an Active Cancer Diagnosis on the Problem List?: No Quality: Stroke Does the patient have a stroke diagnosis?: No Physical Exam Vital Signs: Vital Signs: Last Vital Signs Temp 99.1 F 11/27/24 07:06 Pulse 75 11/27/24 07:06 Resp 16 11/27/24 07:06 BP 125/82 11/27/24 07:06 Pulse Ox 98 11/27/24 07:06 O2 Del Method Room Air 11/27/24 07:06 BMI result Body Mass Index 38.5 Const: Other: Constitutional : Awake, interactive, not in distress Neck : Normal inspection, Supple, tongue less swollen with hematoma Cardiovascular : RRR, no JVP, no lower extremity edema Respiratory : good bilateral air entry, no crackles, wheezes or rhonchi Gastrointestinal: soft, lax, Normal bowel sounds, Non tender Skin : Warm, Dry Neurological : Alert & oriented x3, No focal deficit , CN 2-12 within normal DS: Data Data Completed and Pending Labs on day of discharge: Laboratory Results - last 24 hr 11/27/24 05:11 Sodium 143 Potassium 4.4 Chloride 109 H Carbon Dioxide 27 Anion Gap 11 L BUN 9 Creatinine 1.01 Estim Creat Clear Calc 134.9 Estimated GFR > 60 Random Glucose 99 Calcium 9.0 Total Creatine Kinase 1181 H Discharge Plan Discharge Anticipated Discharge Date/Time: 11/26/24 12:10 Patient Disposition: Home, Self-Care Discharge Diagnosis: Breakthrough seizure Rhabdomyolysis Referrals: [facility] [Physician] - 1 Week Discharge Medications: New levetiracetam 500 mg Tablet 1,500 mg PO BID 90 Days Qty: 540 0RF Continued Excedrin Migraine 250-250-65 mg Tablet 2 tab PO Q6H PRN (Reason: Migraine Headache) Discharge Orders: Discharge Order (Routine); Ordered 11/27/24 Ordered By: Man Roa Diet: Advance to usual diet Activity on Discharge: As tolerated Stand Alone Forms: Patient Portal Discharge page, Work/School Release Print Language: Other Care Plan Goals: Start Keppra 1500 mg two times a day avoid alcohol Keep yourself well hydrated You need to be 6 months without any seizure before driving or running heavy machinery Health Concerns: seizure Plan of Treatment: Keppra Assessment: as above
--- NOTE | 2024-11-27 11:28 | MHC.CM.PN ---
pt dcdhome self care
== END 2024-11-27 12:12 | disposition home or self-care (01) | DRG 53 ==
LOC: HO.ED 15:49 → HO.EDOVER 16:35 → HO.S3 19:36
PROVIDERS: Physician Assistant Medical; Admitting Provider Student in an Organized Health Care Education/Training Program; Emergency Provider Emergency Medicine; PCP Internal Medicine; Visit Provider Student in an Organized Health Care Education/Training Program
DX: G40.909 Epilepsy, unspecified, not intractable, without status epilepticus (principal); M62.82 Rhabdomyolysis; F17.210 Nicotine dependence, cigarettes, uncomplicated; Z71.6 Tobacco abuse counseling; T42.6X6A Underdosing of other antiepileptic and sedative-hypnotic drugs, initial encounter; Z91.120 Patient's intentional underdosing of medication regimen due to financial hardship
CPT/HCPCS: 36415; 70450; 70486; 72125; 80048; 80053; 80076; 80307; 82550; 82947; 85025; 99285; J0131; J1953; J2060; J3360

== ENCOUNTER → 2024-11-25 11:43 | Outpatient (BNV) | payer MEDICAID, SELFPAY | PROVIDERS: Visit Provider Radiology Diagnostic Radiology | DX: R56.9 Unspecified convulsions (principal); R68.84 Jaw pain | CPT/HCPCS: 70450; 70486; 72125 ==

== ENCOUNTER → 2024-11-25 16:18 | Outpatient (BNV) | payer MEDICAID, SELFPAY | PROVIDERS: Admitting Provider Student in an Organized Health Care Education/Training Program; Emergency Provider Emergency Medicine; Visit Provider Student in an Organized Health Care Education/Training Program | DX: M62.82 Rhabdomyolysis (principal); R56.9 Unspecified convulsions | CPT/HCPCS: 99223 ==

== ENCOUNTER 2024-12-20 09:19 | Outpatient (REF) | payer MEDICAID, SELFPAY ==
[2024-12-20 11:45] LABS: Alanine Aminotransferase 67 U/L (0-40); Albumin Level 4.3 g/dL (3.5-5.0); Alkaline Phosphatase 88 U/L (39-117); Anion Gap 9 (12-20); Aspartate Amino Transferase 41 U/L (5-37); Bilirubin Total 0.5 mg/dL (0.0-1.0); Blood Urea Nitrogen 17 mg/dL (9-16); Calcium 9.5 mg/dL (8.4-10.2); Carbon Dioxide 24 mmol/L (22-29); Chloride 112 mmol/L (96-108); Estimated Glomerular Filt Rate > 60; Glucose Random 98 mg/dL (60-115); Sodium 141 mmol/L (135-145); Total Protein 8.1 g/dL (6.5-8.0)
[2024-12-23 01:23] LABS: Levetiracetam Keppra 31.3 mcg/mL (6.0-46.0)
[2024-12-24 20:24] LABS: CK-BB None Detected (None Detected); CK-MB 0 % (<5); CK-MM 100 % (95-100); Creatine Kinase,Total,Serum 107 U/L (26-366)
== END 2024-12-20 09:20 | disposition home or self-care (01) ==
LOC: HO.HHCL 09:19
PROVIDERS: Visit Provider Internal Medicine
DX: G40.909 Epilepsy, unspecified, not intractable, without status epilepticus (principal)
CPT/HCPCS: 36415; 80053; 80177; 82552

== ENCOUNTER 2025-01-01 10:33 | Outpatient (REF) | payer MEDICAID, SELFPAY ==
--- OUTSIDE RECORDS SUMMARY | 2025-01-01 11:25 | XMS_ITS | Encounter Summary ---
Author Organization [facility] Address [address] [place] [address] [address] [place] [address] Care Team Providers Care Variety Lathe Operator Name Role Phone Maggie Pleitez MD Primary Care Provider + Encounter Details Date Type Department Care Team (Late st Contact Info) Description 06/03/2023 Orders Only [facility] MEDICINE [address] [place] [address] [phone] Maggie Pleitez MD [address] [place] [address] [phone] Acquired syphilis (Primary Dx) Social History Tobacco Use Types Packs/Day Years Used Date Smoking Tobacco: Every Day Cigarettes Smokeless Tobacco: Never Alcohol Use Standard Drinks/Week Comments Never 0 (1 standard drink = 0.6 oz pur e alcohol) Depression Answer Date Recorded Patient Health Questionnaire-2 Score 0 12/10/2022 Sex and Gender Information Value Date Recorded Sex Assigned at Male 09/27/2022 10:14 AM EDT Legal Sex Male 10:14 AM EDT Gender Identity Male 09/27/2022 10:14 AM EDT Sexual Orientation Straight 09/27/2022 10 :14 AM EDT COVID-19 Exposure Response Date Recorded In the last 10 days, have yo u been in contact with someone who was confirmed or suspected to have Coronavirus/COVID-19? No / Unsure 06/03/2023 11:28 AM EDT documented as of this encounter Plan of Treatment Upcoming Encounters Date Type Department Care Team (Late st Contact Info) Description 02/14/2025 10:30 AM EDT Office Visit [facility] MEDICINE [address] [place] [phone] Maggie Pleitez MD [address] [place] [phone] documented as of this encounter Visit Diagnoses Diagnosis Acquired syphilis- Primary Unspecified syphilis documented in this encounter Care Teams Variety Lathe Operator Relationship Specialty Start Date End Date Maggie Pleitez MD [address] [place] [phone] PCP - General Family Medicine 07/13/17 documented as of this encounter
--- OUTSIDE RECORDS SUMMARY | 2025-01-01 11:25 | XMS_ITS | Encounter Summary ---
Author Organization [employer] Address [address] [place] [address] Care Team Providers Care Supervisor Rides Name Role Phone Maggie Pleitez MD Primary Care Provider + Encounter Details Date Type Department Care Team (Latest Contact Info) Description 12/20/2024 Travel Social History Tobacco Use Types Packs/Day Years Used Date Smoking Tobacco: Some Days Cigarettes Passive Smoke Exposure: Current Smokeless Tobacco: Never Alcohol Use Standard Drinks/Week Comments Never 0 (1 standard drink = 0.6 oz pur e alcohol) Depression Answer Date Recorded Patient Health Questionnaire-9 Score 6 12/20/2024 Patient Health Questionnaire-9 Score 6 12/20/2024 Last PHQ-9: Questionnaire Data Not on file 0 12/20/2024 Housing Stability Answer Date Recorded What is your housing situation today? I have darrell campos 11/29/[address] you li ve. Do you have problems with any of the following? None of the above 11/29/2024 Food Insecurity Answer Date Recorded Within the past 12 months, y ou worried that your food would run out before you got money to buy more: Often true 11/29/2024 Within the past 12 months,th e food you bought just didn't last and you didn't have enough money to get more: Often true 12/2024 Transportation Answer Date Recorded In the past 12 months, has l ack of transportation kept you from medical appts, meetings, work or from getting things needed for daily living? No 11/29/2024 Utilities Answer Date Recorded In the past 12 months, has t he electric, gas, oil or water company threatened to shut off services in your home? Yes 11/29/2024 Depression Answer Date Recorded Patient Health Questionnaire-2 Score 2 12/20/2024 Internet Access Answer Date Recorded Internet Access Q1 Yes 11/29/2024 Internet Access Q2 Not on file 11/29/2024 Sex and Gender Information Value Date Recorded Sex Assigned at Male 09/27/2022 10:14 AM EDT Legal Sex Male 10:14 AM EDT Gender Identity Male 09/27/2022 10:14 AM EDT Sexual Orientation Straight 09/27/2022 10 :14 AM EDT documented as of this encounter Plan of Treatment Upcoming Encounters Date Type Department Care Team (Late st Contact Info) Description 02/14/2025 10:30 AM EDT Office Visit [facility] MEDICINE [address] [place] [phone] Maggie Pleitez MD [address] [place] [phone] documented as of this encounter Visit Diagnoses Not on filedocumented in this encounter Additional Health Concerns Assessment Noted Time PHQ-9 Depression Total Score: 6 12/20/19 25 11:04 AM EST documented as of this encounter Care Teams Supervisor Rides Relationship Specialty Start Date End Date Maggie Pleitez MD [address] [place] [phone] PCP - General Family Medicine 07/13/17 documented as of this encounter
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
--- OUTSIDE RECORDS SUMMARY | 2025-01-01 11:25 | XMS_ITS | Encounter Summary ---
Author Organization [employer] Address [address] [facility] [address] [place] [address] Care Team Providers Care Gravity Prospecting Operator Helper Name Role Phone Maggie Pleitez MD Primary Care Provider + Reason for Visit * Reason Onset Date Comments Durable Medical Equipment 12/21/2024 DME Re quest: Life Alert Sysytem Encounter Details Date Type Department Care Team ([facility] Contact Info) Description 12/21/2024 Telephone [facility] [address] [place], [place] [phone] Maggie Pleitez MD [address] [place] [address] Durable Medical Equipment (DME Request: Life Alert Sysytem) Social History Tobacco Use Types Packs/Day Years [...] AM EDT documented as of this encounter Miscellaneous Notes * Telephone Encounter - America Olmos - 12/21/2024 11:41 AM EST DME RX for Life Alert System was generated and placed on providers desk for signature. * Telephone Encounter - America Olmos - 12/21/2024 11:41 AM EST ----- Message from Maggie Pleitez MD sent at 12/21/2024 9:12 AM EST ----- Please write a rx for life alert system or something of that sort, Dx : Seizures/lives alone documented in this encounter Plan of Treatment Upcoming Encounters Date Type Department Care Team (Late st Contact Info) Description 02/14/2025 10:30 AM EDT Office Visit [facility] [address] [place] [address] Maggie Pleitez MD [address] [place], [place] [phone] documented as of this encounter Visit Diagnoses Not on filedocumented in this encounter Additional Health Concerns Assessment Noted Time PHQ-9 Depression Total Score: 6 12/20/19 25 11:04 AM EST documented as of this encounter Care Teams Gravity Prospecting Operator Helper Relationship Specialty Start Date End Date Maggie Pleitez MD [address] [place] [phone] PCP - General Family Medicine 07/13/17 documented as of this encounter
--- OUTSIDE RECORDS SUMMARY | 2025-01-01 11:25 | XMS_ITS | Encounter Summary ---
Author Organization [employer] Address [address] [facility] 7t [place] [address] Care Team Providers Care Supervisor [employer] Name Role Phone Maggie Pleitez MD Primary Care Provider + Reason for Visit * Reason Onset Date Comments follow up 12/18/2024 Encounter Details Date Type Department Care Team ([facility] st Contact Info) Description 12/18/2024 Telephone [facility] [address] [place], [place] [phone] Marii Guadarrama, PharmD [address] [place] [address] follow up Social History Tobacco Use Types Packs/Day Years Used Date Smoking Tobacco: Some Days Cigarettes Passive Smoke Exposure: Current Smokeless Tobacco: Never Alcohol Use Standard Drinks/Week Comments Never 0 (1 standard drink = 0.6 oz pur e alcohol) Housing Stability Answer Date Recorded What is [...] Recorded Patient Health Questionnaire-2 Score 0 12/10/2022 Internet Access Answer Date Recorded Internet Access Q1 Yes 11/29/2024 Internet Access Q2 Not on file 11/29/2024 Sex and Gender Information Value Date Recorded Sex Assigned at Male 09/27/2022 10:14 AM EDT Legal Sex Male 10:14 AM EDT Gender Identity Male 09/27/2022 10:14 AM EDT Sexual Orientation Straight 09/27/2022 10 :14 AM EDT documented as of this encounter Miscellaneous Notes * Result Encounter Note - Maggie Pleitez MD - 12/20/2024 3:56 PM EST Left done this morning showed improving LFTs. Other labs are pending. * Telephone Encounter - Sherlyn Millard RN - 12/18/2024 4:47 PM EST TC placed to patient [phone] to inform patient of BW bring ordered by PCP which PCP would likepatient to have completed before his appointment on 12/20/24. Patient verbalized understanding. RN also had FD check patients insurance which is appearing to be ACTIVE via [employer]. Patient advised to contact insurance to ensure it is active and he does not need to do anything. Patient verbalized u nderstanding. Per [facility] neurology, patient was scheduled to see Dr. Mayes on 12/15/23 however he no showed to the appointment. RN was informed the patient needs to call [facility] neurology to r/s appointment. RN advised patient to call [facility] neurology and schedule a f/u appointment with them as his insurance is now active again. Patient verbalized understanding and reports he will call them. Patient to f/u PRN. * Telephone Encounter - Maggie Pleitez MD - 12/18/2024 3:52 PM EST Agree with POC re fu with me on 12/20. Please call him and tell him to get labs done prior to appt wme so we check Keppra levels. Please contact neurology and see when is his next appt w them, his insurance should be all set by then. * Telephone Encounter - Sherlyn Millard RN - 12/18/2024 1:07 PM EST TC placed to patient [phone] in regards to below message. Patient reports he has been having breakthrough seizures since his very first seizure. Per recent discharge summary from [facility] 11/25-atient is to be taking keppra 1500mg BID. RN confirmed patient is taking this medication as BID and is NOT skipping any doses. Patient reports his last seizure was on 12/13/24 and it lasted approx 2 mins. Patient reports he did not go to the ED as he was advised by the hospital staff that he does NOT need to go to the ED unless his seizure last 15mins or more. RN inquired if patient has a neurologist however patient reports he did have a neurologist at [facility] however he has been out of work which c aused his insurance to lapse. RN advised patient to come to insurance enrollment before appointmenton 12/20/24 to see if he qualifies for any insurance to avoid receiving a medical bill for appointment on 12/20/24. Patient verbalized understanding and reports he will come to insurance enrollment. Patient advised to continue keppra 1500mg BID and keep a log of when he has a seizure. Sending to PCP as FYI, patient scheduled for HDF on 12/20/24. documented in this encounter Plan of Treatment Upcoming Encounters Date Type Department Care Team (Late st Contact Info) Description 02/14/2025 10:30 AM EDT Office Visit [facility] [address] [place], [place] [phone] Maggie Pleitez MD [address] [place] [phone] documented as of this encounter Procedures Procedure Name Priority Date/Time Associated Diagnosis Comments LEVETIRACETAM Routine 12/20/2024 9:20 AM EST Seizure disorder (CMS/HCC) COMPREHENSIVE METABOLIC PANEL Routine 12/20/2024 9:20 AM EST Seizure disorder (CMS/HCC) documented in this encounter Results * Levetiracetam (12/20/2024 9:20 AM EST) Levetiracetam 31.3 6.0 - 46.0 mcg/mL [facility] Comment:Brivaracetam (Brivia ct(R), Rikelta(R)) exhibitssignificant cross- reactivity in the Levetiracetam(Keppra(R), Spritam(R)) immunoassay. If Brivaracetamhas been prescribed, order test code [id number] by LCMSMS.THIS TEST WAS PERFORMED AT:[employer] [id number] [place] [address]KJXOJZZALIN MEAD MD,PHD Blood Venous blood specimen / Unknown 12/20/2024 9:20 AM EST 12/20/2024 11:20 AM EST us Maggie Pleitez MD LAB BLOOD ORDERABLES Fin al Result [facility] [address] [place] [phone] * (ABNORMAL) Comprehensive Metabolic Panel (12/20/2024 9:20 AM EST) Sodium 141 135 - 145 mmol/L [facility] Potassium 4.0 3.3 - 5.1 mmol/L [facility] Chloride 112(H) 96 - 108 mmol/L [facility] Carbon Dioxide 24 22 - 29 mmol/L [facility] Anion Gap 9(L) 12 - 20 [facility] Urea Nitrogen (BUN) 17(H) 9 - 16 mg/dL [facility] Creatinine, Serum 0.99 0.5 - 1.4 mg/dL [facility] Estimated Glomerular Filt Rate >60 [facility] Comment:Chronic Kidney Disea se: Estimated GFR < 60 mL/min/1.94h9Ywasem Kidney Disease: Estimated GFR < 15 mL/min/1.73m2 Glucose 98 60 - 115 mg/dL [facility] Calcium 9.5 8.4 - 10.2 mg/dL [facility] Bilirubin, Total 0.5 0.0 - 1.0 mg/dL [facility] Aspartate Amino Transferase 41(H) 5 - 37 U/L [facility] Alanine Aminotransferase 67(H) 0 - 40 U/L [facility] Total Protein 8.1(H) 6.5 - 8.0 g/dL [facility] Albumin Level 4.3 3.5 - 5.0 g/dL [facility] Alkaline Phosphatase 88 39 - 117 U/L [facility] Blood Venous blood specimen / Unknown 12/20/2024 9:20 AM EST 12/20/2024 11:20 AM EST us Maggie Pleitez MD LAB BLOOD ORDERABLES Fin al Result [facility] [address] [place] [phone] documented in this encounter Visit Diagnoses Diagnosis Seizure disorder ([facility])- Primary Unspecified epilepsy without mention of intractable epilepsy documented in this encounter Care Teams Supervisor [employer] Relationship Specialty Start Date End Date Maggie Pleitez MD [address] [place] [phone] PCP - General Family Medicine 07/13/17 documented as of this encounter
--- OUTSIDE RECORDS SUMMARY | 2025-01-01 11:25 | XMS_ITS | Clinical Summary ---
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 sinuses are clear. No air-fluid levels. The ostiomeatal units and the infundibulum are patent. Impression: 1. No intraorbital injury or orbital fractures. 2. No fractures of the facial bones identified. This document has been electronically signed by: Elliot Pollack MD on 11/25/2024 13:13:17 Dictated By: Elliot Pollack MD Signed By: <Electronically signed by Elliot Pollack MD in OV> 11/25/24 1314 DD/ 1313 TD/TT: 11/25/24 1313 Lotus Notes Administrator: [facility] External Provider IMG CT PROCEDURES Edited Result - Final * CT Head w/o Contrast (11/25/2024 1:07 PM EST) Anatomical Region Laterality Modality Head, Neck Computed Tomogra phy 11/25/2024 1:07 PM EST Narrative 11/25/2024 1:08 PM EST ? [facility] ?[address] ?[place] [address] ? CT Scan Report ? Signed ? Patient: Sanches Emiliano,Gutierrez ?MR#: ?? [id number] ? : 1985 ?Acct:[id number] ? Age/Sex: 38 / M ?ADM Date: 11/25/24 ? Loc: HO.ED ? Attending Dr: ? Ordering Physician: Jannet Hernandez ?? Date of Service: 11/25/24 ?? Procedure(s): CT head/brain wo IV con ?? Accession Number(s): [id number] ? cc: [facility]; Jannet Hernandez ? Report Number: ?? [id number]: Total DLP = ??907.00 mGy-cm ? CLINICAL HISTORY: seizure, fall ? CT head without IV contrast ? Comparison: CT - BRAIN WO IV CONTRAST [id number] - 05/13/2011 12:10 AM EDT ? Findings: ?? The ventricles are normal in configuration. Basilar cisterns intact. No ?? intracranial hemorrhage, mass-effect or midline shift. No extra-axial ?? fluid collections. Suspect beam hardening artifact causing hypoattenuation ?? posterior calvarium. Adan-white matter junction preserved. No evidence of ?? acute large vessel or territorial ischemia. Brainstem and cerebellum ?? unremarkable. ? The calvarium is intact. The imaged portion of the paranasal sinuses are ?? clear. No mastoid effusions. The orbital contents are unremarkable. ? Impression: ?? 1. No intra or extra-axial hemorrhage. Suspect beam hardening artifact ?? rather than true hypoattenuation posterior calvarium noncontrast MRI would ?? be confirmatory ? This document has been electronically signed by: Elliot Pollack MD on ?? 11/25/2024 13:07:22 ? Dictated By: ?Elliot Pollack MD ? Signed By: ?<Electronically signed by Elliot Pollack MD in OV> ?11/25/24 1308 ? DD/ 1307 ? TD/TT: 11/25/24 1307 ? Lotus Notes Administrator: ? Procedure Note Dontyter, Image - 11/25/[address] [place] [address] [address] Scan Report Signed Patient: Woo Ferris#: [id number] : 1985Acct:[id number] Age/Sex: 38 / MADM Date: 11/25/24 Loc: HO.ED Attending Dr: Ordering Physician: Jannet Hernandez Date of Service: 11/25/24 Procedure(s): CT head/brain wo IV con Accession Number(s): [id number] cc: [facility]; Jannet Hernandez Report Number: [id number]: Total DLP = 907.00 mGy-cm CLINICAL HISTORY: seizure, fall CT head without IV contrast Comparison: CT - BRAIN WO IV CONTRAST [id number] - 05/13/2011 12:10 AM EDT Findings: The ventricles are normal in configuration. Basilar cisterns intact. No intracranial hemorrhage, mass-effect or midline shift. No extra-axial fluid collections. Suspect beam hardening artifact causing hypoattenuation posterior calvarium. Adan-white matter junction preserved. No evidence of acute large vessel or territorial ischemia. Brainstem and cerebellum unremarkable. The calvarium is intact. The imaged portion of the paranasal sinuses are clear. No mastoid effusions. The orbital contents are unremarkable. Impression: 1. No intra or extra-axial hemorrhage. Suspect beam hardening artifact rather than true hypoattenuation posterior calvarium noncontrast MRI would be confirmatory This document has been electronically signed by: Elliot Pollack MD on 11/25/2024 13:07:22 Dictated By: Elliot Pollack MD Signed By: <Electronically signed by Elliot Pollack MD in OV> 11/25/24 1308 DD/ 1307 TD/TT: 11/25/24 1307 Lotus Notes Administrator: [facility] External Provider IMG CT PROCEDURES Edited Result - Final * CT Cervical Spine w/o Contrast (11/25/2024 12:56 PM EST) Anatomical Region Laterality Modality Spine, C-spine Computed Tomogra phy 11/25/2024 12:5 6 PM EST Narrative 11/25/2024 12:57 PM EST ? [facility] ?[address] ?[place] [address] ? CT Scan Report ? Signed ? Patient: Sancehs Emiliano,Gutierrez ?MR#: ?? [id number] ? : 1985 ?Acct:[id number] ? Age/Sex: 38 / M ?ADM Date: 11/25/24 ? Loc: HO.ED ? Attending Dr: ? Ordering Physician: Jannet Hernandez ?? Date of Service: 11/25/24 ?? Procedure(s): CT cervical spine wo IV con ?? Accession Number(s): [id number] ? cc: [facility]; Jannet Hernandez FRANKIE ? Report Number: ?? [id number]: Total DLP = ??712.00 mGy-cm ? CLINICAL HISTORY: fall, seizure ? CT cervical spine without intravenous contrast ? Comparison: CT/HI/SR - CAT SCAN CERVICAL SPINE [id number] - 2018 03:10 PM ?? EST ? Findings: ? Craniocervical junction: No occipital condylar fractures. No evidence of ?? atlantooccipital dissociation. The anterior and posterior arch and lateral ?? masses of C1 are intact. Odontoid and atlanto-dental interval intact. The ?? pars interarticularis of C2 is intact. ? There is normal vertebral body heights with no evidence of compression ?? fracture. The anterior inferior tip of C7 and the T1 vertebral body was ?? not included in the field of view. Also there is subtle motion at the ?? cervical thoracic junction There is normal cervical alignment. No locked ?? or perched facets. No spinous process fractures. ? Lordotic curvature is straightened. The retropharyngeal soft tissues are ?? not widened. ? Segmental analysis as below (MR is more accurate in the evaluation of disc ?? herniation and central canal pathology): ? C2-C3: No herniation or stenosis. ?? C3-C4: No herniation or stenosis. ?? C4-C5: No herniation or stenosis. ?? C5-C6: No herniation or stenosis. ?? C6-C7: No herniation or stenosis. ?? C7-T1: No herniation or stenosis. ? The bones are without evidence of lytic or blastic lesion. ? Impression: ?? 1. Negative CT cervical spine for acute process. Suboptimal assessment of ?? the cervical thoracic junction. ? This document has been electronically signed by: Elliot Pollack MD on ?? 11/25/2024 12:56:12 ? Dictated By: ?Elliot Pollack MD ? Signed By: ?<Electronically signed by Elliot Pollack MD in OV> ?11/25/24 1257 ? DD/ 1256 ? TD/TT: 11/25/24 1256 ? Lotus Notes Administrator: ? Procedure Note Giovani Chambers - 11/25/[address] [address] [address] Scan Report Signed Patient: Gutierrez Ferris#: [id number] : 1985Acct:[id number] Age/Sex: 38 / MADM Date: 11/25/24 Loc: HO.ED Attending Dr: Ordering Physician: Jannet Hernandez Date of Service: 11/25/24 Procedure(s): CT cervical spine wo IV con Accession Number(s): [id number] cc: [facility]; Jannet Hernandez Report Number: [id number]: Total DLP = 712.00 mGy-cm CLINICAL HISTORY: fall, seizure CT cervical spine without intravenous contrast Comparison: CT/HI/SR - CAT SCAN CERVICAL SPINE [id number] - 2018 03:10 PM EST Findings: Craniocervical junction: No occipital condylar fractures. No evidence of atlantooccipital dissociation. The anterior and posterior arch and lateral masses of C1 are intact. Odontoid and atlanto-dental interval intact. The pars interarticularis of C2 is intact. There is normal vertebral body heights with no evidence of compression fracture. The anterior inferior tip of C7 and the T1 vertebral body was not included in the field of view. Also there is subtle motion at the cervical thoracic junction There is normal cervical alignment. No locked or perched facets. No spinous process fractures. Lordotic curvature is straightened. The retropharyngeal soft tissues are not widened. Segmental analysis as below (MR is more accurate in the evaluation of disc herniation and central canal pathology): C2-C3: No herniation or stenosis. C3-C4: No herniation or stenosis. C4-C5: No herniation or stenosis. C5-C6: No herniation or stenosis. C6-C7: No herniation or stenosis. C7-T1: No herniation or stenosis. The bones are without evidence of lytic or blastic lesion. Impression: 1. Negative CT cervical spine for acute process. Suboptimal assessment of the cervical thoracic junction. This document has been electronically signed by: Elliot Pollack MD on 11/25/2024 12:56:12 Dictated By: Elliot Pollack MD Signed By: <Electronically signed by Elliot Pollack MD in OV> 11/25/24 1257 DD/ 1256 TD/TT: 11/25/24 1256 Lotus Notes Administrator: [facility] External Provider IMG CT PROCEDURES Edited Result - Final * Ethanol (11/25/2024 11:25 AM EST) ETHANOL (MG/DL) IN SER/PLAS <10 mg/dL [facility] Comment:Serum/plasma ethanol results are to be used formedical/treatment purposes only. 11/25/2024 11:2 5 AM EST 11/25/2024 11:27 AM EST us Generic External Data Provider LAB BLOOD ORDERAB LES Final Result [facility] [address] [place] [phone] * (ABNORMAL) CBC auto differential (11/25/2024 11:25 AM EST) White Blood Count 14.0(H) 4.8 - 10.8 X10*3/uL [facility] Red Blood Count 5.84(H) 4.60 - 5.80 X10*6/uL [facility] Hemoglobin 16.9 14.0 - 18.0 g/dl [facility] Hematocrit 49.3 42.0 - 52.0 % [facility] Mean Corpuscular Volume 84.4 80.0 - 98.0 fL [facility] Mean Corpuscular Hemoglobin 28.9 27.0 - 33.0 pg [facility] Mean Corpuscular HGB Conc 34.3 31.0 - 36.0 g/dl [facility] Red Cell Distribution Width 12.8 11.0 - 16.0 % [facility] Platelet Count 220 160 - 400 X10*3/uL [facility] Mean Platelet Volume 10.7 9.4 - 12.4 fL [facility] Neutrophils Percent Auto 77.4(H) 45 - 73 % [facility] Imm Gran Pct Auto 0.2 0.0 - 0.4 % [facility] Lymphocytes Percent Auto 15.1(L) 20 - 40 % [facility] Monocytes Percent Auto 6.8 2 - 11 % [facility] Eosinophils Percent Auto 0.1 0 - 4 % [facility] Basophils Percent Auto 0.4 0 - 2 % [facility] NRBC Pct Auto 0.0 0.0 - 0.2 /100WBC [facility] Neutrophils Absolute Auto 10.8(H) 2.0 - 8.3 x10*3/uL [facility] Imm Gran Abs Auto 0.03 0.00 - 0.03 X10*3/uL [facility] Lymphocytes Absolute Auto 2.1 1.2 - 4.9 X10*3/uL [facility] Monocytes Absolute Auto 1.0 0.1 - 1.2 X10*3/uL [facility] Eosinophils Absolute Auto 0.0 0.0 - 0.4 X10*3/uL [facility] Basophils Absolute Auto 0.1 0.0 - 0.2 X10*3/uL [facility] NRBC Abs Auto 0.000 0.0 - 0.012 X10*3/uL [facility] 11/25/2024 11:2 5 AM EST 11/25/2024 11:27 AM EST us Generic External Data Provider LAB BLOOD ORDERAB LES Final Result [facility] [address] [place] [phone] * (ABNORMAL) Creatine Kinase, Total (11/25/2024 11:25 AM EST) Creatine Kinase Total 2,604(H) 38 - 174 U/L [facility] 11/25/2024 11:2 5 AM EST 11/25/2024 11:27 AM EST us Generic External Data Provider LAB BLOOD ORDERAB LES Final Result Performing Organization Address City/[facility]/ZIP Co de Phone Number [facility] [address] [place] [phone] * Hepatitis Panel, General (12/13/2023 9:13 AM EST) Hepatitis A IgM Nonreactive Nonreactive [facility] Comment:IgM antibodies to CARRILLO V not detected; does not exclude earlyacute or recovered HAV infection. ~Hepatitis B Surface Antibody REACTIVE Nonreactive [facility] Comment:REACTIVE: > 11.99 mI U/mL Hepatitis B Core Antibody Nonreactive Nonreactive [facility] Hepatitis C Antibody Nonreactive Nonreactive [facility] Comment:Antibodies to HCV no t detected; does not exclude early acuteHCV infection. Hepatitis B Surface Ag Negative Negative [facility] Blood 12/13/2023 9:13 AM EST 12/13/2023 11:23 AM EST Maggie Pleitez MD LAB BLOOD ORDERABLES Fin al Result Performing Organization Address [facility] Co de Phone Number [facility] [address] [place] [phone] * HIV-1/2 Antigen and Antibodies, Fourth Generation, with Reflexes (12/13/2023 9:13 AM EST) HIV AB/AG Nonreactive Nonreactive [facility] Comment:HIV-1 p24 Ag and/or HIV-1/HIV-2 Ab not detected.A test result that is nonreactive does not exclude thepossibility of exposure to or infection with HIV-1 and/orHIV-2. Nonreactive results in this assay for individualswith prior exposure to HIV-1 and/or HIV-2 may be due toantigen and antibody levels that are below the limit ofdetection of this assay.The [employer] HIV Ag/Ab Combo assay result andsupplemental assay results should be interpreted inconjunction with the patient's clinical presentation,history and other laboratory results. If the results areinconsistent with clinical evidence, additional testing issuggested to confirm the result. Blood Venous blood specimen / Unknown 12/13/2023 9:13 AM EST 12/13/2023 11:23 AM EST us Maggie Pleitez MD LAB BLOOD ORDERABLES Fin al Result Performing Organization Address [facility] Co de Phone Number [facility] [address] [place] [phone] * (ABNORMAL) Lipid Panel with Reflex to Direct LDL (12/28/2022 9:25 AM EST) Cholesterol, Total 199 <200 mg/dL [facility] [place] [facility] HDL Cholesterol 37(L) > OR = 40 mg/dL [facility] Triglycerides 157(H) <150 mg/dL [facility] LDL Cholesterol 133(H) mg/dL (calc) [facility] Comment: Reference range: <100 Desirable range <100 mg/dL for primary prevention; ?? <70 mg/dL for patients with CHD or diabetic patients with > or = 2 CHD risk factors. LDL-C is now calculated using the Isma calculation, which is a validated novel method providing better accuracy than the Friedewald equation in the estimation of LDL-C. Fidel SS et al. JEANNIE. 2013;310(19): 6010-7800 (http://education.[employer]faq/ZIF469) Chol/HDLC Ratio 5.4(H) <5.0 (calc) [facility] Non-HDL Cholesterol 162(H) <130 mg/dL (calc) [facility] Comment: For patients with diabetes plus 1 major ASCVD risk factor, treating to a non-HDL-C goal of <100 mg/dL (LDL-C of <70 mg/dL) is considered a therapeutic option. 12/28/2022 9:25 AM EST 12/28/2022 9:25 AM EST Narrative [facility] - 01/01/2023 12:59 PM EST FASTING:YES FASTING: YES us Maggie Pleitez MD LAB BLOOD ORDERABLES Fin al Result [facility] [address] [facility], [place] [phone] [facility] [place] [facility] [address] [facility], ([address]) [place] [phone] from Last 3 Months or Most Recently Relevant to Health Maintenance Insurance [facility] Care Teams Master Merchandiser Relationship Specialty Start Date End Date Maggie Pleitez MD [address] [place] [phone] PCP - General Family Medicine 07/13/17
[2025-01-01 11:52] LABS: Estimated Glomerular Filt Rate > 60
[2025-01-01 12:17] LABS: Syphilis Screen Reactive (Nonreactive)
[2025-01-03 15:10] LABS: RPR Quantitative Reactive 1:8 (Nonreactive); T.Pallidum Particle Agg Test Reactive (Nonreactive)
== END 2025-01-01 10:34 | disposition home or self-care (01) ==
LOC: HO.HHCL 10:33
PROVIDERS: Visit Provider Internal Medicine
DX: R03.0 Elevated blood-pressure reading, without diagnosis of hypertension (principal); A53.9 Syphilis, unspecified
CPT/HCPCS: 36415; 82565; 86592; 86780

== ENCOUNTER 2025-02-15 09:23 | Outpatient (REF) | payer MEDICAID, SELFPAY ==
[2025-02-15 11:33] LABS: Anion Gap 12 (12-20); Blood Urea Nitrogen 14 mg/dL (9-16); Calcium 9.6 mg/dL (8.4-10.2); Carbon Dioxide 28 mmol/L (22-29); Chloride 106 mmol/L (96-108); Estimated Glomerular Filt Rate > 60; Glucose Random 98 mg/dL (60-115); Potassium 4.3 mmol/L (3.3-5.1); Sodium 142 mmol/L (135-145)
[2025-02-15 11:47] LABS: Amphetamine Screen Urine Not Detected (Not Detect); Barbiturates, Urine Not Detected (Not Detect); Benzodiazepines Screen Urine Not Detected (Not Detect); Buprenorphine Scr Not Detected (Not Detect); Cannabinoid Screen Urine POSITIVE (Not Detect); Cocaine Screen Urine Not Detected (Not Detect); Fentanyl, urine Not Detected (Not Detect); Methadone Screen, Urine Not Detected (Not Detect); Opiate Screen Urine Not Detected (Not Detect); Oxycodone Screen Urine Not Detected (Not Detect); Phencyclidine Screen Urine Not Detected (Not Detect)
[2025-02-19 17:08] LABS: Levetiracetam Keppra 9.9 mcg/mL (6.0-46.0)
== END 2025-02-15 09:24 | disposition home or self-care (01) ==
LOC: HO.HHCL 09:23
PROVIDERS: Internal Medicine; Visit Provider Registered Nurse
DX: G40.909 Epilepsy, unspecified, not intractable, without status epilepticus (principal); F31.75 Bipolar disorder, in partial remission, most recent episode depressed
CPT/HCPCS: 36415; 80048; 80177; 80307

== ENCOUNTER 2025-09-21 16:02 | Emergency (ER) | payer MEDICAID, SELFPAY ==
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
[2025-09-21 16:17] VITALS: BP 118/77; BP 129/93; PULSE 85; PULSE 94; RESP 18; TEMP 36.8; O2SAT 100; O2SAT 95; BMI 39.1
--- NOTE | 2025-09-21 16:23 | ECG_ITS ---
Test Reason : EPILEPSY Blood Pressure : */* mmHG Vent. Rate : 86 BPM Atrial Rate : 86 BPM P-R Int : 152 ms QRS Dur : 84 ms QT Int : 360 ms P-R-T Axes : 66 67 -6 degrees QTcB Int : 430 ms Normal sinus rhythm Abnormal QRS-T angle, consider primary T wave abnormality Abnormal ECG When compared with ECG of 13-Apr-2023 12:08, No significant change was found Referred By: Generic ED Physician Electronically Signed By: SHAHRZAD ESCOBEDO MD
[2025-09-21 16:31] LABS: Glucose, Whole Blood 108 mg/dL (60-115)
--- NOTE | 2025-09-21 16:53 | ED.SEIZURE ---
HPI - Seizure General Chief Complaint: Seizure Stated Complaint: seizure lasted 1min witnessed by family Time Seen by Provider: 09/21/25 16:24 History of Present Illness HPI Narrative: Patient is 39-year-old male was at a home. Had a seizure that was tonic-clonic lasting less than a minute. Positive postictal state. No loss of continence. No tongue bite. No changes in seizure medicine. Patient has been compliant with his Keppra he is currently on 1500 mg twice a day. In addition patient is also on Vimpat 100 mg twice a day but patient failed to take his Vimpat due to a prescription pharmacy issue. He does have it at his pharmacy. Just did not take it recently. Patient states he gets a seizure about every 2 weeks. His last seizure about 3 weeks ago. He had tonic-clonic seizures baseline. Denies any recreational drug use denies any alcohol. Seizure History: Yes Related Data Home Medications ?Medication ?Instructions ?Recorded ?Confirmed [id number]-[id number]-[id number] 250 2 tab PO Q6H PRN Migraine Headache 11/25/24 11/25/24 mg-250 mg-65 mg tablet (Excedrin Migraine) Previous Rx's ?Medication ?Instructions ?Recorded levetiracetam 500 mg tablet 1,500 mg (3 x 500 mg) PO BID 90 11/26/24 days #540 tabs Allergies Allergy/AdvReac Type Severity Reaction Status Date / Time ibuprofen (From MOTRIN) Allergy Intermediate HX Verified 09/21/25 16:21 ULCER-CANNOT USE aspirin (ASPIRIN) AdvReac Mild INVOLUNTARY Verified 09/21/25 16:21 SPASMS Review of Systems Review of Systems: History of seizures Yes all other systems are reviewed and are negative [facility] Past Medical History Attestation statement: The following information was validated with the patient. Medical History Bleeding ulcer Epilepsy Social History Social History Household Members: None Household Members Other:: Just my dog Housing: Apartment Do you presently have visiting nurse or other home services: No Alcohol intake: never Comment: per MD pt may ambute in room Patient Tobacco Use Status: Current everyday Tobacco user Tobacco use type: Cigarette Cigarettes Per Day: 2 Years Smoked: no Second Hand Smoke Exposure: No Use of substances other than those prescribed or required for medical reasons: Yes Substance Use Type: Marijuana Advance Directives: No Advance Directives Information Provided: No service: No Physical Exam Exam: Exam: Appearance: Alert. Oriented X3. No acute distress. Eyes: Pupils equal, round and reactive to light. ENT: Pharynx normal. Neck: Normal inspection. Neck supple. No lymph nodes noted. No crepitus CVS: Normal heart rate and rhythm. Pulses normal. Normal S1 and S2 Respiratory: No respiratory distress. Breath sounds normal. No Wheezing. No rales Abdomen: Soft and nontender. No rigidity. No distention. good BS x4 Skin: Skin warm and dry. Normal skin color. Normal skin turgor. Extremities: No lower extremity edema. Neurovascular intact to all extremities. No Lacerations. No Rash Neuro: Oriented X 3. No motor deficit. No sensory deficit. Moving all extermities. No slurred speech Vital Signs: Vital Signs: Last Vital Signs Temp 98.0 F 09/21/25 19:46 Pulse 74 09/21/25 19:46 Resp 20 09/21/25 19:46 BP 113/71 09/21/25 19:46 Pulse Ox 96 09/21/25 19:46 O2 Del Method Room Air 09/21/25 19:46 BMI result Body Mass Index 39.1 Medications Administered Discontinued Medications Generic Name Dose Route Start Last Admin Trade Name Freq PRN Reason Stop Dose Admin Acetaminophen 975 mg 09/21/25 19:47 09/21/25 20:04 Acetaminophen 325 Mg Tablet PO 09/21/25 19:48 975 mg ONCE ONE Administration Lacosamide 100 mg 09/21/25 16:55 09/21/25 17:15 Lacosamide 100 Mg Tablet PO 09/21/25 16:56 100 mg ONCE ONE Administration Medical Decision Making Medical Decision Making MDM Narrative: 39 years old presents today with having a seizure lasting about a minute. With subsequent resolution. Gets seizures every 1-1/2 weeks to 2 weeks. The last seizure was about 2 weeks ago. Has a history of being on Keppra and Vimpat has only been taking his Keppra but not the Vimpat. He does have a prescription he is getting it filled he has not in the pharmacy. 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 Patient in no distress. Neurologically intact. Electrolytes were unremarkable. Patient fell onto his shoulder. My interpretation of patient's x-ray of the left shoulder was grossly negative there is no fracture. My interpretation patient's EKG showed a sinus rhythm heart rate is 90 CA QRS QTC normal no acute ST segment elevation. Patient in no distress. Explained the need to take his medication. Explained to need to closely follow-up. In stable condition. Differential Diagnosis Differential Diagnoses: The differential diagnosis associated with the presentation includes Seizure Admission/Observation Consideration of admission/observation: Escalation of care including admission/observation considered Lab Data MDM Lab Attestation statement: I reviewed the patient's lab results. 09/21/25 17:10 09/21/25 17:10 Labs: Lab Results 09/21/25 09/21/25 Range/Units 16:24 17:10 WBC 10.1 (4.8-10.8) X10*3/uL RBC 5.80 (4.60-5.80) X10*6/uL Hgb 16.4 (14.0-18.0) g/dl Hct 48.6 (42.0-52.0) % MCV 83.8 (80.0-98.0) fL MCH 28.3 (27.0-33.0) pg MCHC 33.7 (31.0-36.0) g/dl RDW 12.8 (11.0-16.0) % Plt Count 232 (160-400) X10*3/uL MPV 10.1 (9.4-12.4) fL Immature Gran % (Auto) 0.4 (0.0-0.4) % Neut % (Auto) 51.3 (45-73) % Lymph % (Auto) 32.5 (20-40) % [place] % (Auto) 8.0 (2-11) % Eos % (Auto) 7.0 H (0-4) % Baso % (Auto) 0.8 (0-2) % Lymph # (Auto) 3.3 (1.2-4.9) X10*3/uL [place] # (Auto) 0.8 (0.1-1.2) X10*3/uL Eos # (Auto) 0.7 H (0.0-0.4) X10*3/uL Baso # (Auto) 0.1 (0.0-0.2) X10*3/uL Abs Immat Gran (auto) 0.04 H (0.00-0.03) X10*3/uL Absolute Neuts (auto) 5.2 (2.0-8.3) x10*3/uL Absolute Nucleated RBC 0.000 (0.0-0.012) X10*3/uL Nucleated RBC % (auto) 0.0 (0.0-0.2) /100WBC Sodium 143 (135-145) mmol/L Potassium 4.2 (3.3-5.1) mmol/L Chloride 109 H (96-108) mmol/L Carbon Dioxide 25 (22-29) mmol/L Anion Gap 13 (12-20) BUN 12 (9-16) mg/dL Creatinine 1.06 (0.5-1.4) mg/dL Estim Creat Clear Calc 124.6 Estimated GFR > 60 POC Glucose 108 (60-115) mg/dL Random Glucose 84 (60-115) mg/dL Calcium 9.2 (8.4-10.2) mg/dL Independent Interpretation I performed an independent interpretation of an: EKG (Sinus heart rate is 80 CA QRS QTC within normal limits there is no acute ST segment elevation.) and Plain X-Ray (Shoulder x-ray negative for fracture) Radiology Impression Discussion of test interpretation with radiology: I have reviewed the radiologist's reading. Independent Historian Clinical information obtained from an independent historian. History obtained from or confirmed by: Spouse Chronic Conditions History of seizures Social Determinants Patient?s care significantly limited by Social Determinants of Health including: Problems related to primary support group Discharge Plan Discharge Clinical Impression: Epilepsy Patient Disposition: Home, Self-Care Instructions: Epilepsy (DC) Additional Instructions: No driving no swimming no activity so pitcher in danger if he ever seizure at that time. Prescriptions: No Action Excedrin Migraine 250-250-65 mg Tablet 2 tab PO Q6H PRN (Reason: Migraine Headache) levetiracetam 500 mg Tablet 1,500 mg PO BID 90 Days Qty: 540 0RF Referrals: Carla Kidd MD [Physician, Neurology] - 09/25/25 Print Language: Dominican
--- OUTSIDE RECORDS SUMMARY | 2025-09-21 17:08 | XMS_ITS | Encounter Summary ---
Author Organization [email or web address] Address [address] [place] [address] 7 [place] [address] Care Team Providers Care Slab Worker Name Role Phone Maggie Pleitez MD Primary Care Provider + Encounter Details Date Type Department Care Team (Late Contact Info) Description 06/03/2023 Orders Only [facility] [address] [place] [address] [phone] Maggie Pleitez MD [address] [place] [address] [phone] Acquired syphilis (Primary Dx) Social History Tobacco [...] Care Team (Late st Contact Info) Description 10/08/2025 11:15 AM EST Office Visit [facility] [address] [place] [address] [phone] Maggie Pleitez MD [address] [place] [phone] documented as of this encounter Visit Diagnoses Diagnosis Acquired syphilis- Primary Unspecified syphilis documented in this encounter Care Teams Slab Worker Relationship Specialty Start Date End Date Maggie Pleitez MD [address] [place] [phone] PCP - General Family Medicine 07/13/17 09/17/25 documented as of this encounter
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
[2025-09-21 17:18] LABS: MANUAL DIFF FLAG NO
--- NOTE | 2025-09-21 17:19 | PC.NURSE ---
Pt with hx of seizures, compliant with meds, was at a today and had witnessed seizure lasting <1min. Postictal per EMS. Pt now a/ox4. States feels weak but otherwise no complaints. Pending labs and CT
[2025-09-21 17:31] LABS: Anion Gap 13 (12-20); Blood Urea Nitrogen 12 mg/dL (9-16); Calcium 9.2 mg/dL (8.4-10.2); Carbon Dioxide 25 mmol/L (22-29); Chloride 109 mmol/L (96-108); Creatinine Clr Calc Pharmacy 124.6; Estimated Glomerular Filt Rate > 60; Hematocrit 48.6 % (42.0-52.0); Hemoglobin 16.4 g/dl (14.0-18.0); Imm Gran Abs Auto 0.04 X10*3/uL (0.00-0.03); Imm Gran Pct Auto 0.4 % (0.0-0.4); Lymphocytes Absolute Auto 3.3 X10*3/uL (1.2-4.9); Mean Corpuscular HGB Conc 33.7 g/dl (31.0-36.0); Mean Corpuscular Hemoglobin 28.3 pg (27.0-33.0); Mean Corpuscular Volume 83.8 fL (80.0-98.0); NRBC Abs Auto 0.000 X10*3/uL (0.0-0.012); NRBC Pct Auto 0.0 /100WBC (0.0-0.2); Platelet Count 232 X10*3/uL (160-400); Potassium 4.2 mmol/L (3.3-5.1); Red Blood Count 5.80 X10*6/uL (4.60-5.80); Sodium 143 mmol/L (135-145); White Blood Count 10.1 X10*3/uL (4.8-10.8)
[2025-09-21 18:00] VITALS: BP 113/76; PULSE 79; RESP 19; TEMP 36.8; O2SAT 97
[2025-09-21 19:46] VITALS: BP 113/71; PULSE 74; RESP 20; TEMP 36.7; O2SAT 96
[2025-09-21 20:17] VITALS: BP 113/71; PULSE 74; RESP 20; TEMP 36.7; O2SAT 96
== END 2025-09-21 20:18 | disposition home or self-care (01) ==
PROVIDERS: Emergency Provider Emergency Medicine Emergency Medical Services
DX: G40.409 Other generalized epilepsy and epileptic syndromes, not intractable, without status epilepticus (principal); M25.512 Pain in left shoulder
CPT/HCPCS: 36415; 73030; 80048; 82947; 85025; 93005; 99284

== ENCOUNTER → 2025-09-21 16:23 | Outpatient (BNV) | payer MEDICAID, SELFPAY | PROVIDERS: Emergency Provider Emergency Medicine Emergency Medical Services; Visit Provider Internal Medicine Cardiovascular Disease | DX: R94.31 Abnormal electrocardiogram [ECG] [EKG] (principal); G40.909 Epilepsy, unspecified, not intractable, without status epilepticus | CPT/HCPCS: 93010 ==

== ENCOUNTER → 2025-09-21 16:54 | Outpatient (BNV) | payer MEDICAID, SELFPAY | PROVIDERS: Emergency Provider Emergency Medicine Emergency Medical Services; Visit Provider Radiology Diagnostic Radiology | DX: Z04.3 Encounter for examination and observation following other accident (principal) | CPT/HCPCS: 73030 ==